=== PATIENT | male | born 1970 | race Caucasian/White ===

== ENCOUNTER 2021-02-24 17:10 | Emergency (ER) | payer BC ==
--- OUTSIDE RECORDS SUMMARY | 2021-02-24 17:21 | XMS REPORT | Continuity of Care Document ---
:1970 Author Organization [facility] t Address [address] Zhang [address] [place] [id number] Care Team Providers Name Role Phone JOON Primary Care Physician Unavailable SYSTEM, NOT IN Attending Clinician Unavailable Maribel Monzon Attending Clinician Puga RN, L Attending Clinician Unavailable Enma RAUSCH Attending Clinician Argelia PRODUCT MANAGENT INTERN, D Attending Clinician ARGELIA, D Attending Clinician Unavailable Joon DUARTE Attending Clinician JOON Attending Clinician Unavailable Carlitos DUARTE Attending Clinician Thony Clement MD Attending Clinician Love DUARTE Attending Clinician LOVE Attending Clinician Unavailable Marcell DUARTE Attending Clinician Lisa DUARTE Attending Clinician Milena Springer Attending Clinician THONY CLEMENT Attending Clinician Unavailable Nat DUARTE Attending Clinician DEREJE Attending Clinician Unavailable Dereje DUARTE Attending Clinician Leslie SUÁREZ Attending Clinician Unavailable Elroy DUARTE Attending Clinician Keshawn GARDNER Attending Clinician Unavailable Jj PRODUCT MANAGENT INTERN, B Attending Clinician ENMA TORO Attending Clinician Unavailable EL Attending Clinician Unavailable El WATKINS Attending Clinician Heriberto RINCON Attending Clinician Unavailable Sergey WATKINS, M Attending Clinician Maribel MAIER. Attending Clinician Unavailable Darrion PRODUCT MANAGENT INTERN, R. Attending Clinician VICKEY Attending Clinician Unavailable Samuel DUARTE Attending Clinician Vickey DUARTE Attending Clinician Jomar MCNEILL Attending Clinician Unavailable MANSOOR Attending Clinician Unavailable Mansoor DUARTE Attending Clinician Shamika DUARTE Attending Clinician SHAMIKA Attending Clinician Unavailable Janette REED, Uri Attending Clinician Unavailable Uri SAVAGE Attending Clinician Unavailable Leia REED, R Attending Clinician Unavailable Branden CERVANTES Attending Clinician Alie Pal RPH Attending Clinician Mio ERED, R Attending Clinician Unavailable Norberto REED Attending Clinician Unavailable Alfa DUARTE Attending Clinician Eriberto WATKINS, O Attending Clinician Joaquin FERGUSON Attending Clinician Unavailable Naeem LOVETT Attending Clinician Tay REED, O Attending Clinician Unavailable NAEEM Attending Clinician Unavailable Naomi DUARTE Attending Clinician NAOMI Attending Clinician Unavailable Ruth Rivera Attending Clinician Unavailable Viet REED, Uri Attending Clinician Unavailable Israel Tapia RN, S Attending Clinician Unavailable Soraya PRODUCT MANAGENT INTERN, E Attending Clinician Windy Perez RN Attending Clinician Unavailable Jb REED, P Attending Clinician Unavailable Kerrie REED Attending Clinician Unavailable Gael Friend RN Attending Clinician Unavailable David Orozco RN, D Attending Clinician Unavailable Isaias INSEAM LEVELER, R Attending Clinician Hank RAUSCH Attending Clinician HANK Attending Clinician Unavailable Ruth De La Torre MA Attending Clinician Unavailable Richy REED, W Attending Clinician Unavailable Dalusung PRODUCT MANAGENT INTERN Attending Clinician KAMRAN Attending Clinician Unavailable Oliverio RN Attending Clinician Mervin RN, B Attending Clinician Unavailable Wai RAUSCH Attending Clinician Argelia RN, T Attending Clinician Unavailable Howie CLINE, B Attending Clinician Rodney RN, R Attending Clinician Natacha RAUSCH Attending Clinician Jocelyne Rausch PRODUCT MANAGENT INTERN, M Attending Clinician NATACHA Attending Clinician Unavailable Erica SÁNCHEZ C Attending Clinician Julienne Myers MA Attending Clinician Unavailable Magno RN Attending Clinician Unavailable Sonja Kohler Attending Clinician JOON Admitting Clinician Unavailable Payers Payer Name Policy Type Policy Number Effective Date Expiration Date S lamont BLUE CROSS BLUE [id number] 2020 [place]:00 [id number] 10/2019-PresentPPO Problems Condition Condition Condition Status Onset Resolution Last Treating Co mments Source Name Details Category Date Date Treatment Clinician Date 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, syndrome, 00:00: 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 spectrum spectrum Lesion of Lesion of Disease Active conjunctiv conjunctiv 4-14 An derso a a 00:00: n 00 Exfoliatio Exfoliatio Disease Active M D n due to n due to 4-13 Shamar o erythemato erythemato 00:00: n us us 00 condition condition involving involving 30-39 30-39 percent of percent of body body surface surface Liver Liver Disease Active function function 4-12 Shamar o tests tests 00:00: n abnormal abnormal 00 Generalize Generalize Disease Active M D d rash d rash 4-12 Anderso 00:00: n 00 Fever Fever Disease Active 4-12 Anderso 00:00: n 00 Multiple Multiple Disease Active myeloma myeloma 2-10 Anderso 00:00: n 00 R/O Diagnosis Active 2018-102019-08-18 Mem oria MYELOMA 09:42:00 l R/O 00:00: Dangelo MYELOMA 00 Active 08/02/2019 [facility] Dangelo Fatty Fatty Disease Active liver liver 10-25 Anderso 00:00: n 00 Hypertensi Hypertensi Disease Active 2017-10 M D on on 11-25 Anderso 00:00: n 00 Hypokalemi Hypokalemi Disease Active M D a a Anderso n Hyponatrem Hyponatrem Disease Active M D ia ia Anderso n Edema Edema Disease Active MD Sukhjinder hadley Acute Acute Disease Active kidney kidney Anderso failure failure n with with tubular tubular necrosis necrosis Metabolic Metabolic Disease Active acidosis acidosis Shamar o n Allergies, Adverse Reactions, Alerts This patient has no known allergies or adverse reactions. Family History Family Member Diagnosis Comments Start Date Stop Date Source Natural father -Other cancer MD Sly mathis Natural father Coronary heart disease (CHD) MD [place] Natural father Hyperlipidemia Natural father Hypertension MD Villegas son Natural mother -Other cancer MD Sly mathis Social History Social Habit Start Date Stop Date Quantity Comments Source History of tobacco Snuff User use Sex Assigned At MD Ibanez on Exposure to Not sure MD [place]on SARS-CoV-2 (event) Tobacco use and 2021-02-04 2021-02-04 Current user MD Sly mathis exposure 00:00:00 00:00:00 Alcohol intake 2021-02-04 2021-02-04 Current drinker MD Fern vivas 00:00:00 00:00:00 of alcohol (finding) Smoking Status Start Date Stop Date Source Never smoker MD [place] Medications Ordered Filled Start Stop Current Ordering Indication Dosage Frequency Signature Comments Components Source Medication Medication Date Date Medication? Clinician (SIG) Name Name ursodiol Yes Multiple 300mg Take 1 (ACTIGALL) 5-03 myeloma capsule And erso 300 mg 00:00: (300 mg) n capsule 00 by mouth twice daily. mupirocin Yes Carmelita Apply (BACTROBAN) 4-30 nson topically And erso 2% ointment 00:00: syndrome, to n 00 toxic affected epidermal area(s) necrolysis twice spectrum daily. Apply to any areas that are open. Apply to orifices, ears, nose, mouth. For external use only. oxyCODONE Yes Carmelita 10mg Take 1 MD (ROXICODONE 02-20 nson tablet (10 An derso ) 10 mg 00:00: syndrome mg) by n immediate 00 mouth release every 8 tablet (eight) hours as needed for severe pain. triamcinolo Yes Carmelita Apply MD berman 02-19 nson topically Anderso (KENALOG) 00:00: syndrome, to n 0.1% cream 00 toxic affected epidermal area(s) necrolysis twice spectrum daily. Apply to affected area(s): trunk and extremitie s Do NOT use on face For external use only. pantoprazol Yes Acute 40mg Take 1 MD e 02-19 kidney tablet (40 Anderso (PROTONIX) 00:00: failure mg) by n 40 mg EC 00 with mouth tablet tubular daily with necrosis breakfast. mupirocin 2020- No Carmelita Apply (BACTROBAN) 02-1930 nson topically An derso 2% ointment 00:00: 00:00 syndrome, to n 00 :00 toxic affected epidermal area(s) necrolysis twice spectrum daily. Apply to any areas that are open. Apply to orifices, ears, nose, mouth For external use only. mupirocin 2020- No Carmelita Apply (BACTROBAN) 02-18 nson topically An derso 2% ointment 00:00: 00:00 syndrome, to n 00 :00 toxic affected epidermal area(s) necrolysis twice spectrum daily. Apply to any areas that are open. Apply to orifices, ears, nose, mouth For external use only. triamcinolo 2020- No Carmelita Apply MD berman 02-18 nson topically Anderso (KENALOG) 00:00: 00:00 syndrome, to n 0.1% cream 00 :00 toxic affected epidermal area(s) necrolysis twice spectrum daily. Apply to affected area(s): trunk and extremitie sDo NOT use on face For external use only. gabapentin 2021-0 Yes 300mg Take 300 MD (NEURONTIN) 4-21 mg by Anderso 300 mg 14:17: mouth n capsule 37 twice daily. diphenhydrA Yes 50mg Take 50 mg MD MINE 4-21 by mouth 3 Anderso (BENADRYL) 14:17: (three) n 25 mg 37 times a tablet day as needed for allergies. fluconazole Yes Carmelita 400mg Take 2 MD (DIFLUCAN) 4-20 nson tablets Shamar o 200 mg 00:00: syndrome, (400 mg) n tablet 00 toxic by mouth epidermal daily. To necrolysis prevent spectrum fungal infections while on steroids. atovaquone Yes Carmelita 1500mg Take 10 mL MD (MEPRON) 4-19 nson (1,500 mg) Bakari so 750 mg/5 mL 00:00: syndrome, by mouth n suspension 00 toxic daily with epidermal dinner. necrolysis To prevent spectrum PJP pneumonia. hydrocortis Yes Carmelita Apply MD one 2.5% 4-19 nson topically Shamar o cream 00:00: syndrome, to n 00 toxic affected epidermal area(s) necrolysis twice spectrum daily. Apply to affected area(s): face; inguinal folds and groin. For external use only. hydroxyzine Yes Carmelita 25mg Take 1 MD HCl 4-19 nson tablet (25 Anderso (ATARAX) 25 00:00: syndrome, mg) by n mg tablet 00 toxic mouth epidermal every 6 necrolysis (six) spectrum hours as needed for itching, allergies or anxiety. ondansetron Yes Carmelita 8mg Dissolve 1 MD (ZOFRAN-ODT 4-19 nson tablet (8 And erso ) 8 mg 00:00: syndrome, mg) on the n disintegrat 00 toxic tongue ing tablet epidermal every 8 necrolysis (eight) spectrum hours as needed for nausea or vomiting. polyethylen Yes Carmelita 17g Take 17 g MD e glycol 4-19 nson by mouth Anderso (MIRALAX) 00:00: syndrome, daily as n 17 g packet 00 toxic needed epidermal (constipat necrolysis ion). spectrum Available over the counter. prednisoLON Yes Carmelita 1[drp] Administer E acetate - nson 1 drop to Bakari so (PRED 00:00: syndrome, both eyes n FORTE) 1% 00 toxic 4 (four) ophthalmic epidermal times a suspension necrolysis day. spectrum moxifloxaci Yes Carmelita 1[drp] Administer MD hadley (VIGAMOX) - nson 1 drop to And erso 0.5 % 00:00: syndrome, both eyes n ophthalmic 00 toxic 4 (four) solution epidermal times a necrolysis day. spectrum morphine Yes Carmelita 30mg Take 1 MD (MS CONTIN) 02-10 nson tablet (30 An derso 30 mg 12 hr 00:00: syndrome mg) by n tablet 00 mouth every 12 (twelve) hours. predniSONE 2020- Yes Carmelita Take 2 MD (DELTASONE) 02-10 05-25 nson tablets Sly rso 20 mg 00:00: 04:59 syndrome, (40 mg) by n tablet 00 :00 toxic mouth epidermal twice necrolysis daily for spectrum 7 days, THEN 3 tablets (60 mg) daily for 7 days, THEN 2 tablets (40 mg) daily for 7 days, THEN 1 tablet (20 mg) daily for 7 days, THEN 0.5 tablets (10 mg) daily for 7 days. oxyCODONE 2020- No Carmelita 10mg Take 1 MD (ROXICODONE 02-10 nson tablet (10 A nderso ) 10 mg 00:00: 00:00 syndrome mg) by n immediate 00 :00 mouth release every 4 tablet (four) hours as needed for severe pain. mupirocin 2020- No Carmelita Apply (BACTROBAN) 02-10 nson topically An derso 2% ointment 00:00: 00:00 syndrome, to n 00 :00 toxic affected epidermal area(s) necrolysis twice spectrum daily. Apply to any areas that are open. Apply to orifices, ears, nose, mouth For external use only. triamcinolo 2020- No Carmelita Apply MD berman 02-10 nson topically Anderso (KENALOG) 00:00: 00:00 syndrome, to n 0.1% cream 00 :00 toxic affected epidermal area(s) necrolysis twice spectrum daily. Apply to affected area(s): trunk and extremitie sDo NOT use on face For external use only. magnesium 2020- No Status post 500mg Take 1 MD oxide 500 01-27 stem cell tablet An derso mg tablet 00:00: 00:00 transplant (500 mg) n 00 :00 by mouth daily. sulfamethox 2020- No Multiple 1{tbl} Take 1 MD azole-trime 01-24 myeloma tablet by Anderso thoprim 00:00: 00:00 mouth 3 n (BACTRIM 00 :00 (three) DS) 800 times a mg-160 mg week per tablet Wednesday, Wednesday and Wednesday. valACYclovi Yes Multiple 500mg Take 1 MD r (VALTREX) 01-23 myeloma tablet And erso 500 mg 00:00: (500 mg) n tablet 00 by mouth daily. ondansetron 2020- No 1{tbl} Dissolve 1 MD (ZOFRAN-ODT 30 02-10 tablet on An derso ) 4 mg 00:00: 00:00 the tongue n disintegrat 00 :00 every 6 ing tablet (six) hours as needed. magnesium 2020- No Status post 500mg Take 1 MD oxide 500 01-17 stem cell tablet An derso mg tablet 00:00: 00:00 transplant (500 mg) n 00 :00 by mouth daily. pantoprazol 2020- No Acute 40mg Take 1 MD e 01-16 kidney tablet (40 Shamar o (PROTONIX) 00:00: 00:00 failure mg) by n 40 mg EC 00 :00 with mouth tablet tubular daily with necrosis breakfast. doxycycline 2020- No Hypokalemia 100mg Take 1 MD (Vibramycin 01-16 capsule Sly rso ) 100 MG 00:00: 00:00 (100 mg) n capsule 00 :00 by mouth twice daily. levoFLOXaci 2020- No Hypokalemia 750mg Take 1 MD n -16 02- tablet Anderso (LEVAQUIN) 00:00: 00:00 (750 mg) n 750 mg 00 :00 by mouth tablet daily. furosemide 2020- No Hypokalemia 20mg Take 1 MD (Lasix) 20 -16 02- tablet (20 An derso mg tablet 00:00: 00:00 mg) by n 00 :00 mouth twice daily. potassium 2020- No Hypokalemia 20meq Take 1 MD chloride 01-16- tablet (20 Sly rso (K-DUR,KLOR 00:00: 00:00 mEq) by n -CON M) 20 00 :00 mouth mEq tablet twice daily. While on lasix. loperamide Yes Acute Take 1 MD (IMODIUM) 2 3-23 kidney tablet by A nderso mg capsule 00:00: failure mouth n 00 with after each tubular loose necrosis stool as needed. nystatin 2020- No Acute Apply MD (MYCOSTATIN 01-14-05 kidney topically Anderso ) 100,000 00:00: 00:00 failure to n units/g 00 :00 with affected powder tubular area(s) necrosis twice daily. prochlorper 2020- No Acute 10mg Take 1 MD azine 01-14-05 kidney tablet (10 Bakari so (COMPAZINE) 00:00: 00:00 failure mg) by n 10 mg 00 :00 with mouth tablet tubular every 8 necrosis (eight) hours as needed for nausea or vomiting. pantoprazol 2020- No Acute 40mg Take 1 MD e 01-14-25 kidney tablet (40 Shamar o (PROTONIX) 00:00: 00:00 failure mg) by n 40 mg EC 00 :00 with mouth tablet tubular daily with necrosis breakfast. loperamide 2020- No Acute As needed MD (IMODIUM) 2 -14 01-23 kidney for loose Anderso mg capsule 00:00: 00:00 failure stools n 00 :00 with tubular necrosis prochlorper 2020- No Acute 10mg Take 1 MD azine 3-23 -23 kidney tablet (10 Bakari so (COMPAZINE) 00:00: 00:00 failure mg) by n 10 mg 00 :00 with mouth tablet tubular every 8 necrosis (eight) hours. ursodiol Multiple 300mg Take 1 M D (ACTIGALL) 12-18 myeloma capsule An derso 300 mg 00:00: 00:00 (300 mg) n capsule 00 :00 by mouth twice daily. levETIRAcet 2020- No Multiple Please MD am (KEPPRA) 12-18 myeloma follow An derso 500 mg 00:00: 00:00 instructio n tablet 00 :00 ns on handout given in clinic on 12/18/2020 heparin, 2020- No Multiple Inject 2 MD PF, 100 2-13 -24 myeloma ml (200 Bakari so units/mL 00:00: 00:00 units) n injection 00 :00 into each lumen of central venous catheter daily as directed. Discard excess volume to administer 2 mL. heparin, 2020- No Multiple Inject 2 MD PF, 100 2-13 -13 myeloma ml (200 Bakari so units/mL 00:00: 00:00 units) n injection 00 :00 into each lumen of central venous catheter daily as directed. Discard excess volume to administer 2 mL. sodium 2020- No Multiple Inject 10 M D chloride 2-12 03-25 myeloma mL (1 Shamar o (NS) 0.9% 00:00: 00:00 syringe) n flush 00 :00 into each syringe 10 lumen of mL central venous catheter daily as directed. sodium 2020- No Multiple Inject 10 M D chloride 2-12 02-12 myeloma mL (1 Shamar o (NS) 0.9% 00:00: 00:00 syringe) n flush 00 :00 into each syringe 10 lumen of mL central venous catheter daily as directed. gabapentin 2020- No 300mg Take 300 M D (NEURONTIN) 2-10 02-10 mg by Shamar o 100 mg 17:52: 00:00 mouth n capsule 33 :00 twice daily. doxycycline 2019-10 100mg Take 100 MD monohydrate 2-21 02-24 mg by Shamar o (MONODOX) 00:00: 00:00 mouth n 100 MG 00 :00 twice capsule daily. hydroCHLORO 2019-10 25mg Take 25 mg MD thiazide 2-18 03-25 by mouth Shamar o (HYDRODIURI 00:00: 00:00 daily. n L) 25 mg 00 :00 tablet valACYclovi 2019-10 500mg Take 500 MD r (VALTREX) 008 04-01 mg by Shamar o 500 mg 00:00: 00:00 mouth n tablet 00 :00 daily. amLODIPine 5mg Take 5 mg M D (NORVASC) 5 12-09 by mouth And erso mg tablet 00:00: 00:00 twice n 00 :00 daily. olmesartan 40mg Take 40 mg MD (BENICAR) 12-09 by mouth Bakari so 40 mg 00:00: 00:00 daily. n tablet 00 :00 Losartan 2018-10 Yes See Memoria Instructio l 13:00: ns, PO Dangelo 00 Daily 40 mg, 0 Refill(s) Immunizations Ordered Immunization Filled Immunization Date Status Commen ts Source Name Name Zoster Recombinant 2020-10-01 Completed MD And erson 00:00:00 Vital Signs Vital Name Observation Time Observation Value Comments Source WEIGHT 2021-02-12 09:05:00 105.9 kg WEIGHT 2021-02-12 09:05:00 105.9 kg WEIGHT 2021-02-10 07:47:43 106.1 kg HEIGHT 2021-02-05 18:43:00 183 cm WEIGHT 2021-02-10 07:47:43 106.1 kg HEIGHT 2021-02-05 18:43:00 183 cm WEIGHT 2021-01-27 08:34:00 105.4 kg WEIGHT 2021-01-27 08:34:00 105.4 kg WEIGHT 2021-01-23 10:08:00 106.2 kg WEIGHT 2021-01-23 10:08:00 106.2 kg WEIGHT 2021-01-20 08:19:00 110.5 kg WEIGHT 2021-01-20 08:19:00 110.5 kg WEIGHT 2021-01-17 08:55:00 116.9 kg WEIGHT 2021-01-17 08:55:00 116.9 kg WEIGHT 2021-01-16 08:27:30 116.6 kg HEIGHT 2020-12-23 13:49:00 179.5 cm WEIGHT 2021-01-16 08:27:30 116.6 kg HEIGHT 2020-12-23 13:49:00 179.5 cm WEIGHT 2020-12-19 07:14:14 114 kg WEIGHT 2020-12-19 07:14:14 114 kg WEIGHT 2020-12-17 07:33:00 113.1 kg WEIGHT 2020-12-17 07:33:00 113.1 kg WEIGHT 2020-12-16 19:39:21 113.4 kg WEIGHT 2020-12-16 19:39:21 113.4 kg WEIGHT 2020-12-16 07:51:14 113.9 kg WEIGHT 2020-12-16 07:51:14 113.9 kg WEIGHT 2020-12-15 19:03:49 113.7 kg WEIGHT 2020-12-15 19:03:49 113.7 kg WEIGHT 2020-12-14 11:01:19 117.4 kg WEIGHT 2020-12-14 11:01:19 117.4 kg WEIGHT 2020-12-13 11:10:40 116.1 kg WEIGHT 2020-12-13 11:10:40 116.1 kg WEIGHT 2020-12-12 11:04:59 116.3 kg WEIGHT 2020-12-12 11:04:59 116.3 kg WEIGHT 2020-11-13 09:23:00 115 kg WEIGHT 2020-11-13 09:23:00 115 kg HEIGHT 2020-10-24 10:07:00 180 cm WEIGHT 2020-10-24 10:07:00 113.2 kg HEIGHT 2020-10-24 10:07:00 180 cm WEIGHT 2020-10-24 10:07:00 113.2 kg Systolic blood 2021-02-12 14:07:46 133 mm[Hg] pressure Diastolic blood 2021-02-12 14:07:46 81 mm[Hg] MD Fern vivas pressure Heart rate 2021-02-12 14:07:46 90 /min MD Villegas son Body temperature 2021-02-12 14:07:46 36.61 Mattie MD Bradley gonzalez Respiratory rate 2021-02-12 14:07:46 18 /min MD Bradley gonzalez Oxygen saturation in 2021-02-12 14:07:46 100 /min MD [place] Arterial blood by Pulse oximetry Body weight 2021-02-12 14:05:00 105.9 kg MD Bakari akbar BMI 2021-02-12 14:05:00 31.62 kg/m2 MD Bakari akbar Body height 2021-02-05 23:43:00 183 cm MD Bakari akbar Height 2019-08-18 15:00:00 182.88 cm [facility] Weight 2019-08-18 15:00:00 [facility] BMI Calculated 2019-08-18 15:00:00 [facility] Dangelo Procedures Procedure Date / Time Performed Performing Clinician [facility] e COMPLETE BLOOD COUNT W/ 2021-02-12 13:55:00 Stout, Renata Huerta nderson DIFFERENTIAL PROTHROMBIN TIME 2021-02-12 13:55:00 Stout, Renata [place] PARTIAL THROMBOPLASTIN TIME 2021-02-12 13:55:00 StoutRenata MD TYPE AND SCREEN 2021-02-12 13:55:00 StoutRenata MD COMPREHENSIVE METABOLIC PANEL 2021-02-12 13:55:00 StoutRenata MD PHOSPHORUS LEVEL 2021-02-12 13:55:00 StoutRenata MD URIC ACID 2021-02-12 13:55:00 StoutRenata MD LACTATE DEHYDROGENASE 2021-02-12 13:55:00 Stout[facility] MAGNESIUM LEVEL 2021-02-12 13:55:00 StoutRenata del valle MD Results CBC 2021-02-12 13:55:00 StoutRenata del valle MD MANUAL DIFFERENTIAL 2021-02-12 13:55:00 StoutRenata del valle MD GLUCOSE LEVEL 2021-02-12 13:55:00 StoutRenata MD BLOOD UREA NITROGEN 2021-02-12 13:55:00 StoutRenata del valle MD ELECTROLYTE PANEL 2021-02-12 13:55:00 StoutRenata del valle MD SERUM CREATININE 2021-02-12 13:55:00 StoutRenata MD .GLOMERULAR FILTRATION RATE 2021-02-12 13:55:00 StoutRenata del valle MD CALCIUM LEVEL TOTAL 2021-02-12 13:55:00 Stout, Renata Abbott MD [facility] ALBUMIN LEVEL 2021-02-12 13:55:00 Stout, Renata [place] ALKALINE PHOSPHATASE 2021-02-12 13:55:00 Stout, Renata Abbott MD Slyuri mathis ALANINE AMINOTRANSFERASE 2021-02-12 13:55:00 Stout, Renata [place] ASPARTATE AMINOTRANSFERASE 2021-02-12 13:55:00 Stout, Renata [place] TOTAL PROTEIN 2021-02-12 13:55:00 Stout, Renata [place] FRACTIONATED BILIRUBIN 2021-02-12 13:55:00 Stout, Renata Santos derson ABORH 2021-02-12 13:55:00 Stout, Renata [place] CLOT EXPIRATION DATE 2021-02-12 13:55:00 Stout, Renata [facility] rstheodore ANTIBODY SCREEN MANUAL 2021-02-12 13:55:00 Stout, Renata vivas COMPLETE BLOOD COUNT W/ 2021-02-10 12:23:00 Rao Clement MD DIFFERENTIAL BASIC METABOLIC PANEL, 2021-02-10 12:23:00 Rao Clement MD CALCIUM IONIZED MAGNESIUM LEVEL 2021-02-10 12:23:00 Rao Clement MD Sly rstheodore PHOSPHORUS LEVEL 2021-02-10 12:23:00 Rao Clement MD And opal HEPATIC FUNCTION PANEL 2021-02-10 12:23:00 Rao Clement MD PROTHROMBIN TIME 2021-02-10 12:23:00 Rao Clement MD And opal PARTIAL THROMBOPLASTIN TIME 2021-02-10 12:23:00 Rao Clement MD Results CBC 2021-02-10 12:23:00 Rao Clement MD Sly rstheodore MANUAL DIFFERENTIAL 2021-02-10 12:23:00 Rao Clement MD GLUCOSE LEVEL 2021-02-10 12:23:00 Rao Clement MD Slyuri mathis BLOOD UREA NITROGEN 2021-02-10 12:23:00 Rao Clement MD ELECTROLYTE PANEL 2021-02-10 12:23:00 Rao Clement MD SERUM CREATININE 2021-02-10 12:23:00 Rao Clement MD And erson .GLOMERULAR FILTRATION RATE 2021-02-10 12:23:00 Rao Clement MD ALBUMIN LEVEL 2021-02-10 12:23:00 Rao Clement MD Sly rstheodore ALKALINE PHOSPHATASE 2021-02-10 12:23:00 Rao Clement MD ALANINE AMINOTRANSFERASE 2021-02-10 12:23:00 Rao Clement MD ASPARTATE AMINOTRANSFERASE 2021-02-10 12:23:00 Rao Clement MD TOTAL PROTEIN 2021-02-10 12:23:00 Rao Clement MD Sly rstheodore FRACTIONATED BILIRUBIN 2021-02-10 12:23:00 Rao Clement MD CALCIUM IONIZED, VENOUS 2021-02-10 12:23:00 Rao Clement MD COVID-19 (SARS-COV-2) 2021-02-09 20:58:00 Rao Clement PCR-ASYMPTOMATIC [facility] TYPE AND SCREEN 2021-02-09 11:42:00 Rao Clement MD Sly rstheodore ABORH 2021-02-09 11:42:00 Rao Clement MD Sly rstheodore COMPLETE BLOOD COUNT W/ 2021-02-09 11:42:00 Rao Clement MD DIFFERENTIAL BASIC METABOLIC PANEL, 2021-02-09 11:42:00 Rao Clement MD CALCIUM IONIZED MAGNESIUM LEVEL 2021-02-09 11:42:00 Rao Clement MD Sly rson PHOSPHORUS LEVEL 2021-02-09 11:42:00 Rao Clement MD And erson HEPATIC FUNCTION PANEL 2021-02-09 11:42:00 Rao Clement MD PROTHROMBIN TIME 2021-02-09 11:42:00 Rao Clement MD And erson PARTIAL THROMBOPLASTIN TIME 2021-02-09 11:42:00 Rao Clement MD Results CBC 2021-02-09 11:42:00 Rao Clement MD Sly rson MANUAL DIFFERENTIAL 2021-02-09 11:42:00 Rao Clement MD GLUCOSE LEVEL 2021-02-09 11:42:00 Rao Clement MD Sly rson BLOOD UREA NITROGEN 2021-02-09 11:42:00 Rao Clement MD ELECTROLYTE PANEL 2021-02-09 11:42:00 Rao Clement MD An derson SERUM CREATININE 2021-02-09 11:42:00 Rao Clement MD And erson .GLOMERULAR FILTRATION RATE 2021-02-09 11:42:00 Roa Clement MD ALBUMIN LEVEL 2021-02-09 11:42:00 Rao Clement MD Sly rson ALKALINE PHOSPHATASE 2021-02-09 11:42:00 Rao Clement MD ALANINE AMINOTRANSFERASE 2021-02-09 11:42:00 Rao Clement MD ASPARTATE AMINOTRANSFERASE 2021-02-09 11:42:00 RamRao turk MD TOTAL PROTEIN 2021-02-09 11:42:00 Rao Clement MD Sly rstheodore FRACTIONATED BILIRUBIN 2021-02-09 11:42:00 Rao Clement MD CALCIUM IONIZED, VENOUS 2021-02-09 11:42:00 Rao Clement MD CLOT EXPIRATION DATE 2021-02-09 11:42:00 Rao Clement MD ANTIBODY SCREEN MANUAL 2021-02-09 11:42:00 Rao Clement MD COMPLETE BLOOD COUNT W/ 2021-02-08 16:42:00 Rao Clement MD DIFFERENTIAL BASIC METABOLIC PANEL, 2021-02-08 16:42:00 Rao Clement MD CALCIUM IONIZED MAGNESIUM LEVEL 2021-02-08 16:42:00 Rao Clement MD Sly rson PHOSPHORUS LEVEL 2021-02-08 16:42:00 Rao Clement MD And erson HEPATIC FUNCTION PANEL 2021-02-08 16:42:00 Rao Clement MD PROTHROMBIN TIME 2021-02-08 16:42:00 Rao Clement MD And erson PARTIAL THROMBOPLASTIN TIME 2021-02-08 16:42:00 Rao Clement MD LACTIC ACID, VENOUS 2021-02-08 16:42:00 Rao Clement MD Results CBC 2021-02-08 16:42:00 Rao Clement MD Sly rstheodore MANUAL DIFFERENTIAL 2021-02-08 16:42:00 Rao Clement MD GLUCOSE LEVEL 2021-02-08 16:42:00 Rao Clement MD Sly rstheodore BLOOD UREA NITROGEN 2021-02-08 16:42:00 Rao Clement MD ELECTROLYTE PANEL 2021-02-08 16:42:00 Rao Clement MD derson SERUM CREATININE 2021-02-08 16:42:00 Rao Clement MD And erson .GLOMERULAR FILTRATION RATE 2021-02-08 16:42:00 Rao Clement MD ALBUMIN LEVEL 2021-02-08 16:42:00 Rao Clement MD Sly rstheodore ALKALINE PHOSPHATASE 2021-02-08 16:42:00 Rao Clement MD ALANINE AMINOTRANSFERASE 2021-02-08 16:42:00 Rao Clement MD ASPARTATE AMINOTRANSFERASE 2021-02-08 16:42:00 Rao Clement MD TOTAL PROTEIN 2021-02-08 16:42:00 RamRao turk MD Sly rstheodore FRACTIONATED BILIRUBIN 2021-02-08 16:42:00 Rao Clement MD CALCIUM IONIZED, VENOUS 2021-02-08 16:42:00 Rao Clement MD COMPLETE BLOOD COUNT W/ 2021-02-07 05:35:00 RamRao turk MD DIFFERENTIAL BASIC METABOLIC PANEL, 2021-02-07 05:35:00 Rao Clement MD CALCIUM IONIZED MAGNESIUM LEVEL 2021-02-07 05:35:00 RamRao turk MD rson PHOSPHORUS LEVEL 2021-02-07 05:35:00 Rao Clement MD And erson HEPATIC FUNCTION PANEL 2021-02-07 05:35:00 Rao Clement MD PROTHROMBIN TIME 2021-02-07 05:35:00 Rao Clement MD And erson PARTIAL THROMBOPLASTIN TIME 2021-02-07 05:35:00 Rao Clement MD LACTIC ACID, VENOUS 2021-02-07 05:35:00 Rao Clement MD Results CBC 2021-02-07 05:35:00 RamRao turk MD Sly rstheodore MANUAL DIFFERENTIAL 2021-02-07 05:35:00 RamRao turk MD GLUCOSE LEVEL 2021-02-07 05:35:00 RamRao turk MD Sly rstheodore BLOOD UREA NITROGEN 2021-02-07 05:35:00 Rao Clement MD ELECTROLYTE PANEL 2021-02-07 05:35:00 RamRao turk MDson SERUM CREATININE 2021-02-07 05:35:00 Rao Clement MD And erson .GLOMERULAR FILTRATION RATE 2021-02-07 05:35:00 RamRao turk MD ALBUMIN LEVEL 2021-02-07 05:35:00 RamRao turk MD Sly rstheodore ALKALINE PHOSPHATASE 2021-02-07 05:35:00 Rao Clement MD ALANINE AMINOTRANSFERASE 2021-02-07 05:35:00 RamRao turk MD ASPARTATE AMINOTRANSFERASE 2021-02-07 05:35:00 Rao Clement MD TOTAL PROTEIN 2021-02-07 05:35:00 RamRao turk MD Slyuri mathis FRACTIONATED BILIRUBIN 2021-02-07 05:35:00 Rao Clement MD CALCIUM IONIZED, VENOUS 2021-02-07 05:35:00 Rao Clement MD COMPLETE BLOOD COUNT W/ 2021-02-06 18:25:00 Stout, Renata gonzalez DIFFERENTIAL COMPREHENSIVE METABOLIC PANEL 2021-02-06 18:25:00 Stout, Renata Easton PHOSPHORUS LEVEL 2021-02-06 18:25:00 Stout, Renata Easton MAGNESIUM LEVEL 2021-02-06 18:25:00 Stout, Renata Easton PROTHROMBIN TIME 2021-02-06 18:25:00 Stout, Renata Easton PARTIAL THROMBOPLASTIN TIME 2021-02-06 18:25:00 Stout, Renata Easton Results CBC 2021-02-06 18:25:00 Stout, Renata Easton MANUAL DIFFERENTIAL 2021-02-06 18:25:00 Stout, Renata akbar GLUCOSE LEVEL 2021-02-06 18:25:00 Stout, Renata Easton BLOOD UREA NITROGEN 2021-02-06 18:25:00 Stout, Renata akbar ELECTROLYTE PANEL 2021-02-06 18:25:00 Stout, Renata hadley SERUM CREATININE 2021-02-06 18:25:00 Stout, Renata Easton .GLOMERULAR FILTRATION RATE 2021-02-06 18:25:00 Stout, Renata Easton CALCIUM LEVEL TOTAL 2021-02-06 18:25:00 Stout, Renata Calzadaer naomie ALBUMIN LEVEL 2021-02-06 18:25:00 Stout, Renata Easton ALKALINE PHOSPHATASE 2021-02-06 18:25:00 Stout, Renata mathis ALANINE AMINOTRANSFERASE 2021-02-06 18:25:00 Stout, Renata Easton ASPARTATE AMINOTRANSFERASE 2021-02-06 18:25:00 Stout, Renata Easton TOTAL PROTEIN 2021-02-06 18:25:00 Stout, Renata Easton FRACTIONATED BILIRUBIN 2021-02-06 18:25:00 Stout, Renata vivas POC GLUCOSE SCREEN 2021-02-05 22:33:00 Rao Clement MD TYPE AND SCREEN 2021-02-05 20:08:00 Rao Clement MD rson ABORH 2021-02-05 20:08:00 Briseyda Mg MD [facility] CLOT EXPIRATION DATE 2021-02-05 20:08:00 Briseyda Mg MD ANTIBODY SCREEN MANUAL 2021-02-05 20:08:00 Briseyda Mg POC GLUCOSE SCREEN 2021-02-05 16:40:00 Bashir Dupree MD on POC GLUCOSE SCREEN 2021-02-05 10:24:00 Bashir Dupree MD on ALANINE AMINOTRANSFERASE 2021-02-05 06:27:00 Briseyda Mg MD ASPARTATE AMINOTRANSFERASE 2021-02-05 06:27:00 Briseyda Mg MD TOTAL PROTEIN 2021-02-05 06:27:00 Brsieyda Mg MD FRACTIONATED BILIRUBIN 2021-02-05 06:27:00 Briseyda Mg CALCIUM IONIZED, VENOUS 2021-02-05 06:27:00 Briseyda Mg MD COMPLETE BLOOD COUNT W/ 2021-02-05 06:27:00 Rao Clement MD DIFFERENTIAL BASIC METABOLIC PANEL, 2021-02-05 06:27:00 Rao Clement MD CALCIUM IONIZED MAGNESIUM LEVEL 2021-02-05 06:27:00 Rao Clement MD Sly rson PHOSPHORUS LEVEL 2021-02-05 06:27:00 Rao Clement MD And erson HEPATIC FUNCTION PANEL 2021-02-05 06:27:00 Rao Clement MD PROTHROMBIN TIME 2021-02-05 06:27:00 Rao Clement MD And erson PARTIAL THROMBOPLASTIN TIME 2021-02-05 06:27:00 Rao Clement MD LACTIC ACID, VENOUS 2021-02-05 06:27:00 Rao Clement MD Results CBC 2021-02-05 06:27:00 Briseyda Mg MD MANUAL DIFFERENTIAL 2021-02-05 06:27:00 Briseyda Mg MD nderson GLUCOSE LEVEL 2021-02-05 06:27:00 Briseyda Mg MD BLOOD UREA NITROGEN 2021-02-05 06:27:00 Briseyda Mg MD nderson ELECTROLYTE PANEL 2021-02-05 06:27:00 Briseyda Mg MD And erson SERUM CREATININE 2021-02-05 06:27:00 Briseyda Mg MD Sly rson .GLOMERULAR FILTRATION RATE 2021-02-05 06:27:00 Briseyda Mg MD ALBUMIN LEVEL 2021-02-05 06:27:00 Briseyda Mg MD Bakari son ALKALINE PHOSPHATASE 2021-02-05 06:27:00 Briseyda Mg MD POC GLUCOSE SCREEN 2021-02-05 04:12:00 Bashir Dupree MD on POC GLUCOSE SCREEN 2021-02-04 22:29:00 Bashir Dupree MD on POC GLUCOSE SCREEN 2021-02-04 16:55:00 Bashir Dupree MD on POC GLUCOSE SCREEN 2021-02-04 13:24:00 Bashir Dupree MD on TRANSFUSE FRESH FROZEN PLASMA 2021-02-04 12:33:37 Renata Stout MD TRANSFUSE FRESH FROZEN PLASMA 2021-02-04 11:13:20 Renata Stout MD POC GLUCOSE SCREEN 2021-02-04 11:03:00 Bashir Dupree MD on TRANSFUSE FRESH FROZEN PLASMA 2021-02-04 08:18:10 Renata Stout MD COMPLETE BLOOD COUNT W/ 2021-02-04 05:59:00 Rao Clement MD DIFFERENTIAL BASIC METABOLIC PANEL, 2021-02-04 05:59:00 Rao Clement MD CALCIUM IONIZED MAGNESIUM LEVEL 2021-02-04 05:59:00 Rao Clement MD Sly rson PHOSPHORUS LEVEL 2021-02-04 05:59:00 Rao Clement MD And erson HEPATIC FUNCTION PANEL 2021-02-04 05:59:00 Rao Clement MD PROTHROMBIN TIME 2021-02-04 05:59:00 Rao Clement MD And erson PARTIAL THROMBOPLASTIN TIME 2021-02-04 05:59:00 Rao Clement MD LACTIC ACID, VENOUS 2021-02-04 05:59:00 Rao Clement MD Results CBC 2021-02-04 05:59:00 [facility] 2021-02-04 05:59:00 [facility] 2021-02-04 05:59:00 Briseyda Mg MD [facility] BLOOD UREA NITROGEN 2021-02-04 05:59:00 Briseyda Mg MD [facility] ELECTROLYTE PANEL 2021-02-04 05:59:00 Briseyda Mg MD [facility] SERUM CREATININE 2021-02-04 05:59:00 Briseyda Mg MD Sly rs .GLOMERULAR FILTRATION RATE 2021-02-04 05:59:00 Briseyda Mg MD ALBUMIN LEVEL 2021-02-04 05:59:00 Briseyda Mg MD [facility] ALKALINE PHOSPHATASE 2021-02-04 05:59:00 Briseyda Mg MD ALANINE AMINOTRANSFERASE 2021-02-04 05:59:00 Briseyda Mg MD ASPARTATE AMINOTRANSFERASE 2021-02-04 05:59:00 Briseyda Mg MD TOTAL PROTEIN 2021-02-04 05:59:00 Briseyda Mg MD [facility] FRACTIONATED BILIRUBIN 2021-02-04 05:59:00 Briseyda Mg CALCIUM IONIZED, VENOUS 2021-02-04 05:59:00 Briseyda Mg MD TRANSFUSE FRESH FROZEN PLASMA 2021-02-04 05:42:37 Renata Stout MD POC GLUCOSE SCREEN 2021-02-04 04:55:00 Bashir Dupree MD on BASIC METABOLIC PANEL, 2021-02-04 01:33:00 Douglas Verduzco MD CALCIUM IONIZED PHOSPHORUS LEVEL 2021-02-04 01:33:00 Douglas Verduzco MD [facility] MAGNESIUM LEVEL 2021-02-04 01:33:00 Douglas Verduzco MD on GLUCOSE LEVEL 2021-02-04 01:33:00 Douglas Verduzco MD on BLOOD UREA NITROGEN 2021-02-04 01:33:00 Douglas Verduzco MD ELECTROLYTE PANEL 2021-02-04 01:33:00 Douglas Verduzco MD Sly rson SERUM CREATININE 2021-02-04 01:33:00 Douglas Verduzco MD Bakari son .GLOMERULAR FILTRATION RATE 2021-02-04 01:33:00 Ruthie Verduzco MD CALCIUM IONIZED, VENOUS 2021-02-04 01:33:00 Douglas Verduzco TRANSFUSE FRESH FROZEN PLASMA 2021-02-04 00:49:19 Renata Stout MD POC GLUCOSE SCREEN 2021-02-03 22:12:00 Bashir Dupree MD on TRANSFUSE FRESH FROZEN PLASMA 2021-02-03 21:05:52 Renata Stout MD OSMOLALITY URINE 2021-02-03 20:31:00 Niko Brown MD SODIUM URINE 2021-02-03 20:31:00 Niko Brown MD LEGIONELLA URINE ANTIGEN 2021-02-03 20:31:00 Niko Brown MD LEGIONELLA URINE ANTIGEN PATH 2021-02-03 20:31:00 Kodak Brown MD REVIEW STREPTOCOCCAL URINE ANTIGEN 2021-02-03 20:31:00 Niko Brown MD PATH REVIEW LACTIC ACID, VENOUS 2021-02-03 18:54:00 Douglas Verduzco MD BASIC METABOLIC PANEL, 2021-02-03 18:54:00 Douglas Verduzco MD CALCIUM IONIZED MAGNESIUM LEVEL 2021-02-03 18:54:00 Douglas Verduzco MD on PHOSPHORUS LEVEL 2021-02-03 18:54:00 Douglas Verduzco MD Bakari son VENOUS BLOOD GAS 2021-02-03 18:54:00 Douglas Verduzco MD Bakari son GLUCOSE LEVEL 2021-02-03 18:54:00 Douglas Verduzco MD on ELECTROLYTE PANEL 2021-02-03 18:54:00 Douglas Verduzco MD rson SERUM CREATININE 2021-02-03 18:54:00 Douglas Verduzco MD Bakari son .GLOMERULAR FILTRATION RATE 2021-02-03 18:54:00 Ruthie Verduzco MD CALCIUM IONIZED, VENOUS 2021-02-03 18:54:00 Douglas Verduzco BLOOD UREA NITROGEN 2021-02-03 18:54:00 Douglas Verduzco MD An derson XR CHEST 1 VW 2021-02-03 17:29:33 Douglas Verduzco MD on POC GLUCOSE SCREEN 2021-02-03 16:59:00 Bashir Dupree MD on PREPARE FRESH FROZEN PLASMA 2021-02-03 14:26:00 Renata Stout MD FFP PRODUCT READY FOR WOOD FLOOR LAYER 2021-02-03 14:26:00 Bashir Dupree MD OSCILLATORY PEP 2021-02-03 13:00:16 Briseyda Mg MD son POC GLUCOSE SCREEN 2021-02-03 11:00:00 Bashir Dupree MD on COMPLETE BLOOD COUNT W/ 2021-02-03 08:54:00 Rao Clement MD DIFFERENTIAL BASIC METABOLIC PANEL, 2021-02-03 08:54:00 Rao Clement MD CALCIUM IONIZED MAGNESIUM LEVEL 2021-02-03 08:54:00 Rao Clement MD Sly rson PHOSPHORUS LEVEL 2021-02-03 08:54:00 Rao Clement MD And erson HEPATIC FUNCTION PANEL 2021-02-03 08:54:00 Rao Clement MD PROTHROMBIN TIME 2021-02-03 08:54:00 Rao Clement MD And erson PARTIAL THROMBOPLASTIN TIME 2021-02-03 08:54:00 Rao Clement MD LACTIC ACID, VENOUS 2021-02-03 08:54:00 Rao Clement MD CMV QUANT PCR 2021-02-03 08:54:00 Bashir Dupree MD HP MOLECULAR BLOOD COLLECTION 2021-02-03 08:54:00 Bashir Dupree MD HHV7 QUANT SERUM 2021-02-03 08:54:00 Bashir Dupree MD AMYLASE LEVEL 2021-02-03 08:54:00 Bashir Dupree MD LIPASE LEVEL 2021-02-03 08:54:00 Bashir Dupree MD HEPATITIS C VIRUS ANTIBODY 2021-02-03 08:54:00 Joon, Bashir Easton HEPATITIS B SURFACE ANTIGEN, 2021-02-03 08:54:00 Joon, Bashir Easton SERUM HEPATITIS B CORE ANTIBODY 2021-02-03 08:54:00 Joon, Bashir Easton HAPTOGLOBIN 2021-02-03 08:54:00 Joon, Bashir Easton RETICULOCYTE COUNT AUTOMATED 2021-02-03 08:54:00 Joon, Bashir Easton FIBRINOGEN ACTIVITY 2021-02-03 08:54:00 Joon, Bashir DUARTE [facility] D DIMER 2021-02-03 08:54:00 Joon, Bashir Easton Results CBC 2021-02-03 08:54:00 Briseyda Mg MD [facility] MANUAL DIFFERENTIAL 2021-02-03 08:54:00 Briseyda Mg MDrstheodore GLUCOSE LEVEL 2021-02-03 08:54:00 Briseyda Mg MD [facility] BLOOD UREA NITROGEN 2021-02-03 08:54:00 [facility] PANEL 2021-02-03 08:54:00 Briseyda Mg MD And [facility] SERUM CREATININE 2021-02-03 08:54:00 [facility]GLOM[facility] FILTRATION RATE 2021-02-03 08:54:00 Brisedya Mg MD ALBUMIN LEVEL 2021-02-03 08:54:00 Briseyda Mg MD [facility] ALKALINE PHOSPHATASE 2021-02-03 08:54:00 Briseyda Mg MD ALANINE AMINOTRANSFERASE 2021-02-03 08:54:00 Briseyda Mg MD ASPARTATE AMINOTRANSFERASE 2021-02-03 08:54:00 Briseyda Mg MD TOTAL PROTEIN 2021-02-03 08:54:00 Briseyda Mg MD [facility] FRACTIONATED BILIRUBIN 2021-02-03 08:54:00 Briseyda Mg CALCIUM IONIZED, VENOUS 2021-02-03 08:54:00 Briseyda Mg MD HC REF HEPATITIS BC AB, IGG & 2021-02-03 08:54:00 Bashir Dupree MD IGM HEPATITIS B SURFACE AG 2021-02-03 08:54:00 Bashir Dupree MD W/CONFIRM HEPATITIS C VIRUS AB SCREEN 2021-02-03 08:54:00 Bashir Dupree MD W/REFLEX HCV PCR LACTATE DEHYDROGENASE 2021-02-03 08:54:00 Briseyda Mg MD FERRITIN LVL 2021-02-03 08:54:00 Briseyda Mg MD Bakari son HP MD [place] VIRUS 2021-02-03 08:54:00 Bashir Dupree MD QUANTITATIVE PCR ANALYSIS REPORT HHV6 QUANT, PLASMA 2021-02-03 08:54:00 Bashir Dupree MD on POC GLUCOSE SCREEN 2021-02-03 05:58:00 Bashir Dupree MD on URINALYSIS WITH MICROSCOPIC 2021-02-03 03:38:00 Chip Suárez MD IF INDICATED URINALYSIS MICROSCOPIC 2021-02-03 03:38:00 Ernesto Urbina MD URINE CULTURE 2021-02-03 03:38:00 Pacheco Suárez MD OSCILLATORY PEP 2021-02-03 01:00:21 Briseyda Mg MD VRE CULTURE 2021-02-03 00:16:00 Briseyda Mg MD EKG, 12-LEAD (PORTABLE) 2021-02-03 00:00:00 Ernesto Urbina MD POC GLUCOSE SCREEN 2021-02-02 23:37:00 Bashir Dupree MD on OSCILLATORY PEP 2021-02-02 23:10:23 Briseyda Mg MD LACTIC ACID, VENOUS 2021-02-02 22:24:00 Pacheco Suárez MD nderson TROPONIN T 2021-02-02 22:24:00 Dionisio Muniz MD LIPASE LEVEL 2021-02-02 22:24:00 Dionisio Muniz MD PATHOLOGY BIOPSY 2021-02-02 22:20:00 Kirsty Pollack MD INTERPRETATION RESPIRATORY VIRAL PANEL + 2021-02-02 18:30:00 Ernesto Urbina MD COVID-19, NASOPHARYNGEAL SWAB CREATINE KINASE 2021-02-02 17:48:00 Ernesto Urbina MD CKMB 2021-02-02 17:48:00 Ernesto Urbina MD TROPONIN T 2021-02-02 17:48:00 Ernesto Urbina MD POC CHEM 8 2021-02-02 17:29:00 Ernesto Urbina MD POC CRITICAL 2021-02-02 17:25:00 Ernesto Urbina MD POC VENOUS BLOOD GAS + 2021-02-02 17:25:00 Ernesto Urbina MD LACTATE COMPLETE BLOOD COUNT W/ 2021-02-02 17:22:00 Ernesto Urbina MD DIFFERENTIAL COMPREHENSIVE METABOLIC PANEL 2021-02-02 17:22:00 Laurel Urbina MD MAGNESIUM LEVEL 2021-02-02 17:22:00 Ernesto Urbina MD PHOSPHORUS LEVEL 2021-02-02 17:22:00 Ernesto Urbina MD on PROTHROMBIN TIME 2021-02-02 17:22:00 Ernesto Urbina MD on PARTIAL THROMBOPLASTIN TIME 2021-02-02 17:22:00 Bowen Urbina MD TYPE AND SCREEN 2021-02-02 17:22:00 Ernesto Urbina MD Results CBC 2021-02-02 17:22:00 Ernesto Urbina MD MANUAL DIFFERENTIAL 2021-02-02 17:22:00 Ernesto Urbina MD And opal GLUCOSE LEVEL 2021-02-02 17:22:00 Ernesto Urbina MD BLOOD UREA NITROGEN 2021-02-02 17:22:00 Ernesto Urbina MD And erson ELECTROLYTE PANEL 2021-02-02 17:22:00 Ernesto Urbina MD Bakari son SERUM CREATININE 2021-02-02 17:22:00 Ernesto Urbina MD on .GLOMERULAR FILTRATION RATE 2021-02-02 17:22:00 Bowen Urbina MD CALCIUM LEVEL TOTAL 2021-02-02 17:22:00 Ernesto Urbina MD And opal ALBUMIN LEVEL 2021-02-02 17:22:00 Ernesto Urbina MD ALKALINE PHOSPHATASE 2021-02-02 17:22:00 Ernesto Urbina MD ALANINE AMINOTRANSFERASE 2021-02-02 17:22:00 Ernesto Urbina ASPARTATE AMINOTRANSFERASE 2021-02-02 17:22:00 Ernesto Urbina MD TOTAL PROTEIN 2021-02-02 17:22:00 Ernesto Urbina MD FRACTIONATED BILIRUBIN 2021-02-02 17:22:00 Ernesto Urbina MD ABORH 2021-02-02 17:22:00 Ernesto Urbina MD ANTIBODY SCREEN MANUAL 2021-02-02 17:22:00 Ernesto Urbina MD CLOT EXPIRATION DATE 2021-02-02 17:22:00 Ernesto Urbina MDson BLOODCULTURE 2021-02-02 17:22:00 Ernesto Urbina MD COMPLETE BLOOD COUNT W/ 2021-01-27 13:30:00 Esdras Gardner MD DIFFERENTIAL TYPE AND SCREEN 2021-01-27 13:30:00 Esdras Gardner MD COMPREHENSIVE METABOLIC PANEL 2021-01-27 13:30:00 Esdras Gardner MD PHOSPHORUS LEVEL 2021-01-27 13:30:00 Esdras Gardner MD URIC ACID 2021-01-27 13:30:00 Esdras Gardner MD LACTATE DEHYDROGENASE 2021-01-27 13:30:00 Esdras Gardner MD MAGNESIUM LEVEL 2021-01-27 13:30:00 Esdras Gardner MD Results CBC 2021-01-27 13:30:00 Esdras Gardner MD MANUAL DIFFERENTIAL 2021-01-27 13:30:00 Esdras Gardner MD GLUCOSE LEVEL 2021-01-27 13:30:00 Esdras Gardner MD BLOOD UREA NITROGEN 2021-01-27 13:30:00 Esdras Gardner MD ELECTROLYTE PANEL 2021-01-27 13:30:00 Esdras Gardner MD on SERUM CREATININE 2021-01-27 13:30:00 Esdras Gardner MD .GLOMERULAR FILTRATION RATE 2021-01-27 13:30:00 Esdras Gardner MD CALCIUM LEVEL TOTAL 2021-01-27 13:30:00 Esdras Gardnere rstheodore ALBUMIN LEVEL 2021-01-27 13:30:00 Esdras Gardner MD ALKALINE PHOSPHATASE 2021-01-27 13:30:00 Esdras Gardner MD And erson ALANINE AMINOTRANSFERASE 2021-01-27 13:30:00 Esdras Gardner MD ASPARTATE AMINOTRANSFERASE 2021-01-27 13:30:00 Esdras Gardner MD TOTAL PROTEIN 2021-01-27 13:30:00 Esdras Gardner MD FRACTIONATED BILIRUBIN 2021-01-27 13:30:00 Esdras Gardner MD nderson ABORH 2021-01-27 13:30:00 Esdras Gardner MD ANTIBODY SCREEN 2021-01-27 13:30:00 Esdras Gardner MD CLOT EXPIRATION DATE 2021-01-27 13:30:00 Esdras Gardner MD And erstheodore TMP INTERPRETATION ANTIBODY 2021-01-27 13:30:00 Esdras Gardner MD SCREEN NEGATIVE COMPLETE BLOOD COUNT W/ 2021-01-23 14:52:00 Laura Gallegos MDrstheodore DIFFERENTIAL TYPE AND SCREEN 2021-01-23 14:52:00 Laura Gallegos MD COMPREHENSIVE METABOLIC PANEL 2021-01-23 14:52:00 Laura Gallegos MD PHOSPHORUS LEVEL 2021-01-23 14:52:00 Laura Gallegos MD URIC ACID 2021-01-23 14:52:00 Laura Gallegos MD LACTATE DEHYDROGENASE 2021-01-23 14:52:00 Laura Gallegos MD And erson MAGNESIUM LEVEL 2021-01-23 14:52:00 Laura Gallegos MD BETA 2 MICROGLOBULIN 2021-01-23 14:52:00 Laura Gallegos MD IMMUNOGLOBULIN A SERUM 2021-01-23 14:52:00 Laura Gallegos MD FREE KAPPA LIGHT CHAIN 2021-01-23 14:52:00 Laura Gallegos MDson PROTEIN ELECTROPHORESIS, 2021-01-23 14:52:00 Laura Gallegos MD SERUM IMMUNOFIXATION 2021-01-23 14:52:00 Laura Gallegos MD ELECTROPHORESIS Results CBC 2021-01-23 14:52:00 Laura Gallegos MD MANUAL DIFFERENTIAL 2021-01-23 14:52:00 Laura Gallegos MD GLUCOSE LEVEL 2021-01-23 14:52:00 Laura Gallegos MD BLOOD UREA NITROGEN 2021-01-23 14:52:00 Laura Gallegos MD ELECTROLYTE PANEL 2021-01-23 14:52:00 Laura Gallegos MD SERUM CREATININE 2021-01-23 14:52:00 Laura Gallegos MD .GLOMERULAR FILTRATION RATE 2021-01-23 14:52:00 Laura Gallegos MD CALCIUM LEVEL TOTAL 2021-01-23 14:52:00 Laura Gallegos MD ALBUMIN LEVEL 2021-01-23 14:52:00 Laura Gallegos MD ALKALINE PHOSPHATASE 2021-01-23 14:52:00 Laura Gallegos MD rstheodore ALANINE AMINOTRANSFERASE 2021-01-23 14:52:00 Laura Gallegos MD ASPARTATE AMINOTRANSFERASE 2021-01-23 14:52:00 Laura Gallegos TOTAL PROTEIN 2021-01-23 14:52:00 Laura Gallegos MD FRACTIONATED BILIRUBIN 2021-01-23 14:52:00 Laura Gallegos MD derson ABORH 2021-01-23 14:52:00 Laura Gallegos MD ANTIBODY SCREEN 2021-01-23 14:52:00 Laura Gallegos MD FREE KAPPA/FREE LAMBDA RATIO 2021-01-23 14:52:00 Laura Gallegos MD CLOT EXPIRATION DATE 2021-01-23 14:52:00 Laura Gallegos MD rstheodore TMP INTERPRETATION ANTIBODY 2021-01-23 14:52:00 Laura Gallegos MD SCREEN NEGATIVE IMMUNOFIXATION 2021-01-23 14:30:00 Laura Gallegos MD ELECTROPHORESIS URINE PROTEIN ELECTROPHORESIS URINE 2021-01-23 14:30:00 Laura Gallegos MD URINE TOTAL PROTEIN 2021-01-23 14:30:00 Laura Gallegos MD .TOTAL VOLUME 2021-01-23 14:30:00 Laura Gallegos MD .DR. BETINA Manrique PROT ELEC PATH 2021-01-23 14:30:00 Laura Gallegos MD REVIEW .DR ORDAZ UIFE PATH REVIEW 2021-01-23 14:30:00 Laura Gallegos MD COMPLETE BLOOD COUNT W/ 2021-01-20 13:17:00 Barney Rincon DIFFERENTIAL TYPE AND SCREEN 2021-01-20 13:17:00 Barney Rincon MD on COMPREHENSIVE METABOLIC PANEL 2021-01-20 13:17:00 Augustine Rincon MD PHOSPHORUS LEVEL 2021-01-20 13:17:00 Barney Rincon MD Bakari son URIC ACID 2021-01-20 13:17:00 Barney Rinconers on LACTATE DEHYDROGENASE 2021-01-20 13:17:00 Barney Rincon MD MAGNESIUM LEVEL 2021-01-20 13:17:00 Barney Rincon MD Shamar on Results CBC 2021-01-20 13:17:00 Barney Rincon MD on MANUAL DIFFERENTIAL 2021-01-20 13:17:00 Barney Rincon MDson ABORH 2021-01-20 13:17:00 Barney Rinconers on ANTIBODY SCREEN 2021-01-20 13:17:00 Barney Rincon MD on GLUCOSE LEVEL 2021-01-20 13:17:00 Barney Rincon MD Shamar on BLOOD UREA NITROGEN 2021-01-20 13:17:00 Barney Rincon MD ELECTROLYTE PANEL 2021-01-20 13:17:00 Barney Rincon MD Sly rson SERUM CREATININE 2021-01-20 13:17:00 Barney Rincon MD Bakari son .GLOMERULAR FILTRATION RATE 2021-01-20 13:17:00 Barney Rincon MD CALCIUM LEVEL TOTAL 2021-01-20 13:17:00 Barney Rincon MD ALBUMIN LEVEL 2021-01-20 13:17:00 Barney Rincon MD Shamar on ALKALINE PHOSPHATASE 2021-01-20 13:17:00 Barney Rincon MD nderson ALANINE AMINOTRANSFERASE 2021-01-20 13:17:00 Barney Rincon MD ASPARTATE AMINOTRANSFERASE 2021-01-20 13:17:00 Barney Rincon MD TOTAL PROTEIN 2021-01-20 13:17:00 Barney Rincon MD Shamar on FRACTIONATED BILIRUBIN 2021-01-20 13:17:00 Barney Rincon MD CLOT EXPIRATION DATE 2021-01-20 13:17:00 Barney Rincon MD TMP INTERPRETATION ANTIBODY 2021-01-20 13:17:00 Barney Rincon MD SCREEN NEGATIVE COMPLETE BLOOD COUNT W/ 2021-01-17 13:41:00 Chrystal Maier MD DIFFERENTIAL COMPREHENSIVE METABOLIC PANEL 2021-01-17 13:41:00 Chrystal Maier MD MAGNESIUM LEVEL 2021-01-17 13:41:00 Chrystal Maier MD Andantonia hadley LACTATE DEHYDROGENASE 2021-01-17 13:41:00 Chrystal Maier MD URIC ACID 2021-01-17 13:41:00 Chrystal Maier MD Andparisho jomar PHOSPHORUS LEVEL 2021-01-17 13:41:00 Chrystal Maier MD Shamar on TYPE AND SCREEN 2021-01-17 13:41:00 Chrystal Maier MD Andantonia hadley Results CBC 2021-01-17 13:41:00 Chrystal Maier MD Andantonia n MANUAL DIFFERENTIAL 2021-01-17 13:41:00 Chrystal Maier MD And erson GLUCOSE LEVEL 2021-01-17 13:41:00 Chrystal Maier MD Andparisho n BLOOD UREA NITROGEN 2021-01-17 13:41:00 Chrystal Maier MD And erson ELECTROLYTE PANEL 2021-01-17 13:41:00 Chrystal Maier MD Bakari son SERUM CREATININE 2021-01-17 13:41:00 Chrystal Maier MD Shamar on .GLOMERULAR FILTRATION RATE 2021-01-17 13:41:00 Chrystal Maier MD CALCIUM LEVEL TOTAL 2021-01-17 13:41:00 Chrystal Maier ALBUMIN LEVEL 2021-01-17 13:41:00 Chrystal Maier MD ALKALINE PHOSPHATASE 2021-01-17 13:41:00 Chrystal Maier MD ALANINE AMINOTRANSFERASE 2021-01-17 13:41:00 Chrystal Maier ASPARTATE AMINOTRANSFERASE 2021-01-17 13:41:00 Chrystal Maier MD TOTAL PROTEIN 2021-01-17 13:41:00 Chrystal Maier MD FRACTIONATED BILIRUBIN 2021-01-17 13:41:00 Chrystal Maier MD ABORH 2021-01-17 13:41:00 Chrystal Maier MD ANTIBODY SCREEN 2021-01-17 13:41:00 Chrystal Maier MD CLOT EXPIRATION DATE 2021-01-17 13:41:00 Chrystal Maier MD GENERAL LABORATORY ADD ON 2021-01-16 13:22:00 Kristyn Mcneill MD TEST COMPLETE BLOOD COUNT W/ 2021-01-16 10:16:00 Bashir Dupree MD DIFFERENTIAL BASIC METABOLIC PANEL, 2021-01-16 10:16:00 Bashir Dupree MD CALCIUM TOTAL BILIRUBIN TOTAL 2021-01-16 10:16:00 Bashir Dupree MD CALCIUM IONIZED, VENOUS 2021-01-16 10:16:00 Chrystal Maier MD GLUCOSE LEVEL 2021-01-16 10:16:00 Bashir Dupree MD BLOOD UREA NITROGEN 2021-01-16 10:16:00 Bashir Dupree MD ELECTROLYTE PANEL 2021-01-16 10:16:00 Bashir Dupree MD SERUM CREATININE 2021-01-16 10:16:00 Bashir Dupree MD .GLOMERULAR FILTRATION RATE 2021-01-16 10:16:00 Bashir Dupree MD CALCIUM LEVEL TOTAL 2021-01-16 10:16:00 Bashir Dupree MD Results CBC 2021-01-16 10:16:00 Bashir Dupree MD MANUAL DIFFERENTIAL 2021-01-16 10:16:00 Bashir Dupree MD MAGNESIUM LEVEL 2021-01-16 10:16:00 Roma Shahid MD POTASSIUM LEVEL 2021-01-15 21:04:00 Kristyn Mcneill MD CATHETER TIP CULTURE 2021-01-15 19:03:00 Kristyn Mcneill MD Sly rson GASTROINTESTINAL MULTIPLEX 2021-01-15 17:09:00 Kristyn cMneill PANEL PATH REVIEW GASTROINTESTINAL MULTIPLEX 2021-01-15 17:09:00 Kristyn Mcneill PANEL C DIFFICILE DNA ASSAY 2021-01-15 17:09:00 Kristyn Mcneill MD And erson C DIFFICILE DNA ASSAY PATH 2021-01-15 17:09:00 Kristyn Mcneill REVIEW COVID-19 (SARS-COV-2) 2021-01-15 16:01:00 Roma Shahid MD And erson PCR-ASYMPTOMATIC MC COMPLETE BLOOD COUNT W/ 2021-01-15 09:14:00 Bashir Dupree MD nderson DIFFERENTIAL COMPREHENSIVE METABOLIC PANEL 2021-01-15 09:14:00 Bashir Dupree MD LACTATE DEHYDROGENASE 2021-01-15 09:14:00 Bashir Dupree MD And erson PHOSPHORUS LEVEL 2021-01-15 09:14:00 Bashir Dupree MD MAGNESIUM LEVEL 2021-01-15 09:14:00 Bashir Dupree MD URIC ACID 2021-01-15 09:14:00 Bashir Dupree MD PROTHROMBIN TIME 2021-01-15 09:14:00 Bashir Dupree MD PARTIAL THROMBOPLASTIN TIME 2021-01-15 09:14:00 Bashir Dupree MD CALCIUM IONIZED, VENOUS 2021-01-15 09:14:00 Chrystal Maier MD CREATINE KINASE 2021-01-15 09:14:00 Miguel Drake MDson Results CBC 2021-01-15 09:14:00 Bashir Dpuree MD MANUAL DIFFERENTIAL 2021-01-15 09:14:00 Bashir Dupree MD GLUCOSE LEVEL 2021-01-15 09:14:00 Joon, Bashir Easton BLOOD UREA NITROGEN 2021-01-15 09:14:00 Joon, Bashir akbar ELECTROLYTE PANEL 2021-01-15 09:14:00 Joon, Bashir hadley SERUM CREATININE 2021-01-15 09:14:00 Joon, Bashir Easton .GLOMERULAR FILTRATION RATE 2021-01-15 09:14:00 Joon, Bashir Easton CALCIUM LEVEL TOTAL 2021-01-15 09:14:00 Joon, Bashir akbar ALBUMIN LEVEL 2021-01-15 09:14:00 Joon, Bashir Easton ALKALINE PHOSPHATASE 2021-01-15 09:14:00 Joon, Bashir mathis ALANINE AMINOTRANSFERASE 2021-01-15 09:14:00 Joon, Bashir Easton ASPARTATE AMINOTRANSFERASE 2021-01-15 09:14:00 Joon, Bashir Easton TOTAL PROTEIN 2021-01-15 09:14:00 Joon, Bashir Easton FRACTIONATED BILIRUBIN 2021-01-15 09:14:00 Joon, Bashir vivas XR CHEST 2 VW 2021-01-15 02:53:28 Latiff, Miguel vivas URINALYSIS WITH MICROSCOPIC 2021-01-15 00:50:00 Latiff, Ke-Magdiel Easton IF INDICATED URINALYSIS MICROSCOPIC 2021-01-15 00:50:00 Latiff, Miguel Easton URINE CULTURE 2021-01-15 00:50:00 Latiff, Miguel vivas BLOODCULTURE 2021-01-15 00:31:00 Latiff, Miguel vivas BLOODCULTURE 2021-01-15 00:18:00 Latiff, Miguel vivas POTASSIUM LEVEL 2021-01-14 18:55:00 Kristyn Mcneill MD COMPLETE BLOOD COUNT W/ 2021-01-14 09:47:00 Joon, Bashir lanrstheodore DIFFERENTIAL BASIC METABOLIC PANEL, 2021-01-14 09:47:00 Joon, Bashir vivas CALCIUM TOTAL BILIRUBIN TOTAL 2021-01-14 09:47:00 Joon, Bashir Easton CALCIUM IONIZED, VENOUS 2021-01-14 09:47:00 Chrystal Maier MD TYPE AND SCREEN 2021-01-14 09:47:00 Joon, Bashir Easton GLUCOSE LEVEL 2021-01-14 09:47:00 Joon, Bashir Easton BLOOD UREA NITROGEN 2021-01-14 09:47:00 Joon, Bashir akbar ELECTROLYTE PANEL 2021-01-14 09:47:00 Joon, Bashir Slaughter n SERUM CREATININE 2021-01-14 09:47:00 Joon, Bashir Easton .GLOMERULAR FILTRATION RATE 2021-01-14 09:47:00 Joon, Bashir Easton CALCIUM LEVEL TOTAL 2021-01-14 09:47:00 Joon, Bashir DUARTE Bakari son Results CBC 2021-01-14 09:47:00 Joon, Bashir Easton MANUAL DIFFERENTIAL 2021-01-14 09:47:00 Joon, Bashir DUARTE Bakari son ABORH 2021-01-14 09:47:00 Joon, Bashir Easton ANTIBODY SCREEN 2021-01-14 09:47:00 Joon, Bashir Easton CLOT EXPIRATION DATE 2021-01-14 09:47:00 Joon, Bashir Heart rson TMP INTERPRETATION ANTIBODY 2021-01-14 09:47:00 Joon, Bashir Easton SCREEN NEGATIVE COMPLETE BLOOD COUNT W/ 2021-01-13 08:33:00 Joon, Bashir Huerta nderson DIFFERENTIAL COMPREHENSIVE METABOLIC PANEL 2021-01-13 08:33:00 Joon, Bashir Easton LACTATE DEHYDROGENASE 2021-01-13 08:33:00 Joon, Bashir DUARTE And erstheodore PHOSPHORUS LEVEL 2021-01-13 08:33:00 Joon, Bashir Easton MAGNESIUM LEVEL 2021-01-13 08:33:00 Joon, Bashir Easton URIC ACID 2021-01-13 08:33:00 Joon, Bashir Easton Results CBC 2021-01-13 08:33:00 Joon, Bashir Easton MANUAL DIFFERENTIAL 2021-01-13 08:33:00 Joon, Bashir akbar GLUCOSE LEVEL 2021-01-13 08:33:00 Joon, Bashir Easton BLOOD UREA NITROGEN 2021-01-13 08:33:00 Joon, Bashir akbar ELECTROLYTE PANEL 2021-01-13 08:33:00 Joon, Bashir hadley SERUM CREATININE 2021-01-13 08:33:00 Joon, Bashir Easton .GLOMERULAR FILTRATION RATE 2021-01-13 08:33:00 Joon, Bashir Easton CALCIUM LEVEL TOTAL 2021-01-13 08:33:00 Joon, Bashir akbar ALBUMIN LEVEL 2021-01-13 08:33:00 Joon, Bashir Easton ALKALINE PHOSPHATASE 2021-01-13 08:33:00 Joon, Bashir mathis ALANINE AMINOTRANSFERASE 2021-01-13 08:33:00 Joon, Bashir Easton ASPARTATE AMINOTRANSFERASE 2021-01-13 08:33:00 Joon, Bashir Easton TOTAL PROTEIN 2021-01-13 08:33:00 Joon, Bashir Easton FRACTIONATED BILIRUBIN 2021-01-13 08:33:00 Joon, Bashir vivas GENERAL LABORATORY ADD ON 2021-01-12 12:51:00 Pablo Betts MD TEST COMPLETE BLOOD COUNT W/ 2021-01-12 08:33:00 Joon, Bashir Huerta nderson DIFFERENTIAL BASIC METABOLIC PANEL, 2021-01-12 08:33:00 Joon, Bashir vivas CALCIUM TOTAL BILIRUBIN TOTAL 2021-01-12 08:33:00 Joon, Bashir Easton GLUCOSE LEVEL 2021-01-12 08:33:00 Joon, Bashir Easton BLOOD UREA NITROGEN 2021-01-12 08:33:00 Joon, Bashir akbar ELECTROLYTE PANEL 2021-01-12 08:33:00 Joon, Bashir hadley SERUM CREATININE 2021-01-12 08:33:00 Joon, Bashir Easton .GLOMERULAR FILTRATION RATE 2021-01-12 08:33:00 Joon, Bashir Easton CALCIUM LEVEL TOTAL 2021-01-12 08:33:00 Joon, Bashir akbar Results CBC 2021-01-12 08:33:00 Joon, Bashir Easton MANUAL DIFFERENTIAL 2021-01-12 08:33:00 Joon, Bashir DUARTE Bakari akbar PHOSPHORUS LEVEL 2021-01-12 08:33:00 Bashir Dupree MD BLOODCULTURE 2021-01-12 03:02:00 Checo Paula MD URINALYSIS WITH MICROSCOPIC 2021-01-12 02:28:00 Checo Paula MD IF INDICATED URINALYSIS MICROSCOPIC 2021-01-12 02:28:00 Checo Paula MD URINE CULTURE 2021-01-12 02:28:00 Checo Paula MD BLOODCULTURE 2021-01-12 01:44:00 Checo Paula MD COMPLETE BLOOD COUNT W/ 2021-01-11 08:43:00 Joon, Bashir Huerta nderson DIFFERENTIAL BASIC METABOLIC PANEL, 2021-01-11 08:43:00 Joon, Bashir vivas CALCIUM TOTAL BILIRUBIN TOTAL 2021-01-11 08:43:00 Joon, Bashir Easton TYPE AND SCREEN 2021-01-11 08:43:00 Bashir Dupree MD MAGNESIUM LEVEL 2021-01-11 08:43:00 Kristyn Mcneill MD GLUCOSE LEVEL 2021-01-11 08:43:00 Joon, Bashir Easton BLOOD UREA NITROGEN 2021-01-11 08:43:00 Joon, Bashir DUARTE Bakari akbar ELECTROLYTE PANEL 2021-01-11 08:43:00 Joon, Bashir hadley SERUM CREATININE 2021-01-11 08:43:00 Joon, Bashir Easton .GLOMERULAR FILTRATION RATE 2021-01-11 08:43:00 Bashir Dupree MD CALCIUM LEVEL TOTAL 2021-01-11 08:43:00 Joon, Bashir DUARTE Bakari akbar Results CBC 2021-01-11 08:43:00 Joon, Bashir Easton MANUAL DIFFERENTIAL 2021-01-11 08:43:00 Joon, Bashir DUARTE Bakari son ABORH 2021-01-11 08:43:00 Bashir Dupree MD ANTIBODY SCREEN 2021-01-11 08:43:00 Bashir Dupree MD CLOT EXPIRATION DATE 2021-01-11 08:43:00 Bashir Dupree MD Sly rson TMP INTERPRETATION ANTIBODY 2021-01-11 08:43:00 Bashir Dupree MD SCREEN NEGATIVE BLOODCULTURE 2021-01-11 03:12:00 Zhane Buchanan MD BLOODCULTURE 2021-01-11 02:43:00 Zhane Buchanan MD BASIC METABOLIC PANEL, 2021-01-10 21:02:00 Kristyn Mcneill MDson CALCIUM TOTAL GLUCOSE LEVEL 2021-01-10 21:02:00 Kristyn Mcneill MD BLOOD UREA NITROGEN 2021-01-10 21:02:00 Kristyn Mcneill MD Bak[facility] ELECTROLYTE PANEL 2021-01-10 21:02:00 Kristyn Mcneill MD SERUM CREATININE 2021-01-10 21:02:00 Kristyn Mcneill MD .GLOMERULAR FILTRATION RATE 2021-01-10 21:02:00 Kristyn Mcneill MD CALCIUM LEVEL TOTAL 2021-01-10 21:02:00 Kristyn Mcneill MD Bakari [facility] GASTROINTESTINAL MULTIPLEX 2021-01-10 16:10:00 Kristyn Mcneill PANEL PATH REVIEW GASTROINTESTINAL MULTIPLEX 2021-01-10 16:10:00 Kristyn Mcneill PANEL C DIFFICILE DNA ASSAY 2021-01-10 16:10:00 Kristyn Mcneill MD And erson C DIFFICILE DNA ASSAY PATH 2021-01-10 16:10:00 Kristyn Mcneill REVIEW COMPLETE BLOOD COUNT W/ 2021-01-10 05:37:00 Bashir Dupree MD DIFFERENTIAL COMPREHENSIVE METABOLIC PANEL 2021-01-10 05:37:00 Bashir Dupree MD LACTATE DEHYDROGENASE 2021-01-10 05:37:00 Bashir Dupree MD And erson PHOSPHORUS LEVEL 2021-01-10 05:37:00 Bashir Dupree MD MAGNESIUM LEVEL 2021-01-10 05:37:00 Bashir Dupree MD URIC ACID 2021-01-10 05:37:00 Bashir Dupree MD Results CBC 2021-01-10 05:37:00 Joon, Bashir Easton MANUAL DIFFERENTIAL 2021-01-10 05:37:00 Joon, Bashir akbar GLUCOSE LEVEL 2021-01-10 05:37:00 Joon, Bashir Easton BLOOD UREA NITROGEN 2021-01-10 05:37:00 Joon, Bashir akbar ELECTROLYTE PANEL 2021-01-10 05:37:00 Joon, Bashir hadley SERUM CREATININE 2021-01-10 05:37:00 Joon, Bashir Easton .GLOMERULAR FILTRATION RATE 2021-01-10 05:37:00 Joon, Bashir Easton CALCIUM LEVEL TOTAL 2021-01-10 05:37:00 Joon, Bashir akbar ALBUMIN LEVEL 2021-01-10 05:37:00 Joon, Bashir Easton ALKALINE PHOSPHATASE 2021-01-10 05:37:00 Joon, Bashir mathis ALANINE AMINOTRANSFERASE 2021-01-10 05:37:00 Joon, Bashir Easton ASPARTATE AMINOTRANSFERASE 2021-01-10 05:37:00 Joon, Bashir Easton TOTAL PROTEIN 2021-01-10 05:37:00 Joon, Bashir Easton FRACTIONATED BILIRUBIN 2021-01-10 05:37:00 Joon, Bashir vivas BLOODCULTURE 2021-01-10 02:28:00 Ric Seymour MD BLOODCULTURE 2021-01-10 02:00:00 Ric Seymour MD TRANSFUSE RED BLOOD CELLS 2021-01-09 17:57:16 Roma Shahid MD PREPARE RBC 2021-01-09 10:59:00 Roma Shahid MD COMPLETE BLOOD COUNT W/ 2021-01-09 10:01:00 Bashir Dupree MD DIFFERENTIAL BASIC METABOLIC PANEL, 2021-01-09 10:01:00 Bashir Dupree MD CALCIUM TOTAL BILIRUBIN TOTAL 2021-01-09 10:01:00 Bashir Dupree MD GLUCOSE LEVEL 2021-01-09 10:01:00 Bashir Dupree MD BLOOD UREA NITROGEN 2021-01-09 10:01:00 Joon, Bashir akbar ELECTROLYTE PANEL 2021-01-09 10:01:00 Bashir Dupree MD SERUM CREATININE 2021-01-09 10:01:00 Bashir Dupree MD .GLOMERULAR FILTRATION RATE 2021-01-09 10:01:00 Bashir Dupree MD CALCIUM LEVEL TOTAL 2021-01-09 10:01:00 Bashir Dupree MD Bakari akbar Results CBC 2021-01-09 10:01:00 Bashir Dupree MD DIFFERENTIAL CANCEL 2021-01-09 10:01:00 Bashir Dupree MD Bakari akbar TRANSFUSE PLATELETS 2021-01-09 05:52:29 Roma Shahid MD Bakari akbar TRANSFUSE RED BLOOD CELLS 2021-01-08 23:51:07 Roma Shahid MD URINALYSIS WITH MICROSCOPIC 2021-01-08 17:52:00 Emil Betts MD IF INDICATED URINALYSIS MICROSCOPIC 2021-01-08 17:52:00 Ranjit Vazquez MDson URINE CULTURE 2021-01-08 17:52:00 Kristyn Mcneill MD LACTIC ACID, VENOUS 2021-01-08 14:20:00 Kristyn Mcneill MD Bakari akbar XR CHEST 1 VW 2021-01-08 12:42:38 Jillian Villagran MD PREPARE PLATELETS 2021-01-08 11:55:00 Roma Shahid MD PREPARE RBC 2021-01-08 11:54:00 Roma Shahid MD BLOODCULTURE 2021-01-08 10:48:00 Jillian Villagran MD COMPLETE BLOOD COUNT W/ 2021-01-08 10:40:00 Bashir Dupree MDrstheodore DIFFERENTIAL COMPREHENSIVE METABOLIC PANEL 2021-01-08 10:40:00 Bashir Dupree MD LACTATE DEHYDROGENASE 2021-01-08 10:40:00 Bashir Dupree erstheodore PHOSPHORUS LEVEL 2021-01-08 10:40:00 Bashir Dupree MD MAGNESIUM LEVEL 2021-01-08 10:40:00 Bashir Dupree MD URIC ACID 2021-01-08 10:40:00 Bashir Dupree MD PROTHROMBIN TIME 2021-01-08 10:40:00 Joon, Bashir Easton PARTIAL THROMBOPLASTIN TIME 2021-01-08 10:40:00 Joon, Bashir Easton TYPE AND SCREEN 2021-01-08 10:40:00 Joon, Bashir Easton Results CBC 2021-01-08 10:40:00 Joon, Bashir Easton GLUCOSE LEVEL 2021-01-08 10:40:00 Joon, Bashir Easton BLOOD UREA NITROGEN 2021-01-08 10:40:00 Joon, Bashir DUARTE Bakari naomie ELECTROLYTE PANEL 2021-01-08 10:40:00 Joon, Bashir hadley SERUM CREATININE 2021-01-08 10:40:00 Joon, Bashir Easton .GLOMERULAR FILTRATION RATE 2021-01-08 10:40:00 Joon, Bashir Easton CALCIUM LEVEL TOTAL 2021-01-08 10:40:00 Joon, Bashir DUARTE Bakari akbar ALBUMIN LEVEL 2021-01-08 10:40:00 Joon, Bashir Easton ALKALINE PHOSPHATASE 2021-01-08 10:40:00 Joon, Bashir Heart rson ALANINE AMINOTRANSFERASE 2021-01-08 10:40:00 Joon, Bashir Easton ASPARTATE AMINOTRANSFERASE 2021-01-08 10:40:00 Joon, Bashir Easton TOTAL PROTEIN 2021-01-08 10:40:00 Joon, Bashir Easton FRACTIONATED BILIRUBIN 2021-01-08 10:40:00 Joon, Bashir Santos derson ABORH 2021-01-08 10:40:00 Joon, Bashir Easton ANTIBODY SCREEN 2021-01-08 10:40:00 Joon, Bashir Easton DIFFERENTIAL CANCEL 2021-01-08 10:40:00 Joon, Bashir Villegas naomie CLOT EXPIRATION DATE 2021-01-08 10:40:00 Joon, Bashir Heart rson TMP INTERPRETATION ANTIBODY 2021-01-08 10:40:00 Joon, Bashir Easton SCREEN NEGATIVE TMP CROSSMATCH INTERPRETATION 2021-01-08 10:40:00 Joon, Bashir Easton BLOODCULTURE 2021-01-08 10:40:00 Jillian Villagran MD TRANSFUSE PLATELETS 2021-01-07 21:44:43 Roma Shahid MD PROTEIN / CREATININE RATIO 2021-01-07 20:00:00 Nory Betts MD URINE US RENAL 2021-01-07 18:33:23 Kristyn Mcneill MD MICROBIOLOGY LABORATORY ADD 2021-01-07 17:12:00 Kristyn Mcneill MD ON TEST SODIUM URINE 2021-01-07 16:54:00 Kristyn Mcneill MD CREATININE URINE, RANDOM 2021-01-07 16:54:00 Kristyn Mcneill MD PREPARE PLATELETS 2021-01-07 11:54:00 Roma Shahid MD COMPLETE BLOOD COUNT W/ 2021-01-07 09:47:00 Bashir Dupree MD nderson DIFFERENTIAL BASIC METABOLIC PANEL, 2021-01-07 09:47:00 Bashir Dupree MD derson CALCIUM TOTAL BILIRUBIN TOTAL 2021-01-07 09:47:00 Bashir Dupree MD VANCOMYCIN LEVEL TROUGH 2021-01-07 09:47:00 Roma Shahid MDrson GLUCOSE LEVEL 2021-01-07 09:47:00 Bashir Dupree MD BLOOD UREA NITROGEN 2021-01-07 09:47:00 Joon, Bashir akbar ELECTROLYTE PANEL 2021-01-07 09:47:00 Joon, Bashir hadley SERUM CREATININE 2021-01-07 09:47:00 Bashir Dupree MD .GLOMERULAR FILTRATION RATE 2021-01-07 09:47:00 Bashir Dupree MD CALCIUM LEVEL TOTAL 2021-01-07 09:47:00 Bashir Dupree MD Results CBC 2021-01-07 09:47:00 Bashir Dupree MD DIFFERENTIAL CANCEL 2021-01-07 09:47:00 Bashir Dupree MD son BLOODCULTURE 2021-01-07 02:19:00 Clayton Burns MD on BLOODCULTURE 2021-01-07 01:22:00 Clayton Burns MD on COMPLETE BLOOD COUNT W/ 2021-01-06 09:19:00 JoonBashir loza MD nderson DIFFERENTIAL COMPREHENSIVE METABOLIC PANEL 2021-01-06 09:19:00 Joon, Bashir Easton LACTATE DEHYDROGENASE 2021-01-06 09:19:00 Joon, Bashir Norman PHOSPHORUS LEVEL 2021-01-06 09:19:00 Joon, Bashir Easton MAGNESIUM LEVEL 2021-01-06 09:19:00 Joon, Bashir Easton URIC ACID 2021-01-06 09:19:00 Joon, Bashir Easton Results CBC 2021-01-06 09:19:00 Joon, Bashir Easton GLUCOSE LEVEL 2021-01-06 09:19:00 Joon, Bashir Easton BLOOD UREA NITROGEN 2021-01-06 09:19:00 Joon, Bashir akbar ELECTROLYTE PANEL 2021-01-06 09:19:00 Joon, Bashir Slaughter n SERUM CREATININE 2021-01-06 09:19:00 Joon, Bashir Easton .GLOMERULAR FILTRATION RATE 2021-01-06 09:19:00 Joon, Bashir Easton CALCIUM LEVEL TOTAL 2021-01-06 09:19:00 Joon, Bashir DUARTE Bakarimargarita akbar ALBUMIN LEVEL 2021-01-06 09:19:00 Joon, Bashir Easton ALKALINE PHOSPHATASE 2021-01-06 09:19:00 Joon, Bashir mathis ALANINE AMINOTRANSFERASE 2021-01-06 09:19:00 Joon, Bashir Easton ASPARTATE AMINOTRANSFERASE 2021-01-06 09:19:00 Joon, Bashir Easton TOTAL PROTEIN 2021-01-06 09:19:00 Joon, Bashir Easton FRACTIONATED BILIRUBIN 2021-01-06 09:19:00 Joon, Bashir vivas DIFFERENTIAL CANCEL 2021-01-06 09:19:00 Joon, Bashir akbar BLOODCULTURE 2021-01-05 22:35:00 Joon, Bashir Easton XR CHEST 2 VW 2021-01-05 22:25:31 Joon, Bashir Easton URINALYSIS WITH MICROSCOPIC 2021-01-05 21:50:00 Joon, Bashir Easton IF INDICATED URINALYSIS MICROSCOPIC 2021-01-05 21:50:00 Joon, Bashir vivas URINE CULTURE 2021-01-05 21:50:00 Joon, Bashir Easton BLOODCULTURE 2021-01-05 21:50:00 Joon, Bashir Easton TYPE AND SCREEN 2021-01-05 08:42:00 Joon, Bashir Easton COMPLETE BLOOD COUNT W/ 2021-01-05 08:42:00 Joon, Bashir gonzalez DIFFERENTIAL BASIC METABOLIC PANEL, 2021-01-05 08:42:00 Joon, Bashir vviasson CALCIUM TOTAL BILIRUBIN TOTAL 2021-01-05 08:42:00 Joon, Bashir Easton ABORH 2021-01-05 08:42:00 Joon, Bashir Easton ANTIBODY SCREEN 2021-01-05 08:42:00 Joon, Bashir Easton GLUCOSE LEVEL 2021-01-05 08:42:00 Joon, Bashir Easton BLOOD UREA NITROGEN 2021-01-05 08:42:00 Joon, Bashir akbar ELECTROLYTE PANEL 2021-01-05 08:42:00 Joon, Bashir Slaughter n SERUM CREATININE 2021-01-05 08:42:00 Jono, Bashir Easton .GLOMERULAR FILTRATION RATE 2021-01-05 08:42:00 Joon, Bashir Easton CALCIUM LEVEL TOTAL 2021-01-05 08:42:00 Joon, Bashir akbar Results CBC 2021-01-05 08:42:00 Joon, Bashir Easton DIFFERENTIAL CANCEL 2021-01-05 08:42:00 Joon, Bashir akbar TMP INTERPRETATION ANTIBODY 2021-01-05 08:42:00 Joon, Bashir Easton SCREEN NEGATIVE CLOT EXPIRATION DATE 2021-01-05 08:42:00 Joon, Bashir Heart rson COMPLETE BLOOD COUNT W/ 2021-01-04 10:13:00 Joon, Basihr gonzalez DIFFERENTIAL BASIC METABOLIC PANEL, 2021-01-04 10:13:00 Joon, Bashir vivas CALCIUM TOTAL BILIRUBIN TOTAL 2021-01-04 10:13:00 Joon, Bashir Easton GLUCOSE LEVEL 2021-01-04 10:13:00 Joon, Bashir Easton BLOOD UREA NITROGEN 2021-01-04 10:13:00 Joon, Bashir DUARTE Bakari son ELECTROLYTE PANEL 2021-01-04 10:13:00 Joon, Bashir Slaughter n SERUM CREATININE 2021-01-04 10:13:00 Joon, Bashir Easton .GLOMERULAR FILTRATION RATE 2021-01-04 10:13:00 Joon, aBshir Easton CALCIUM LEVEL TOTAL 2021-01-04 10:13:00 Joon, Bashir DUARTE Bakari son Results CBC 2021-01-04 10:13:00 Joon, Bashir Easton MANUAL DIFFERENTIAL 2021-01-04 10:13:00 Joon, Bashir DUARTE Bakari son COMPLETE BLOOD COUNT W/ 2021-01-03 09:15:00 Joon, Bashir Huerta nderson DIFFERENTIAL COMPREHENSIVE METABOLIC PANEL 2021-01-03 09:15:00 Joon, Bashir Easton LACTATE DEHYDROGENASE 2021-01-03 09:15:00 Joon, Bashir DUARTE And opal PHOSPHORUS LEVEL 2021-01-03 09:15:00 Joon, Bashir Easton MAGNESIUM LEVEL 2021-01-03 09:15:00 Joon, Bashir Easton URIC ACID 2021-01-03 09:15:00 Joon, Bashir Easton Results CBC 2021-01-03 09:15:00 Joon, Bashir Easton MANUAL DIFFERENTIAL 2021-01-03 09:15:00 Joon, Bashir DUARTE Bakari son GLUCOSE LEVEL 2021-01-03 09:15:00 Joon, Bashir Easton BLOOD UREA NITROGEN 2021-01-03 09:15:00 Joon, Bashir DUARTE Bakari son ELECTROLYTE PANEL 2021-01-03 09:15:00 Joon, Bashir Slaughter n SERUM CREATININE 2021-01-03 09:15:00 Joon, Bashir Easton .GLOMERULAR FILTRATION RATE 2021-01-03 09:15:00 Joon, Bashir Easton CALCIUM LEVEL TOTAL 2021-01-03 09:15:00 Joon, Bashir DUARTE Bakari son ALBUMIN LEVEL 2021-01-03 09:15:00 Joon, Bashir Easton ALKALINE PHOSPHATASE 2021-01-03 09:15:00 Joon, Bashir Heart rson ALANINE AMINOTRANSFERASE 2021-01-03 09:15:00 Joon, Bashir Easton ASPARTATE AMINOTRANSFERASE 2021-01-03 09:15:00 Joon, Bashir Easton TOTAL PROTEIN 2021-01-03 09:15:00 Joon, Bashir Easton FRACTIONATED BILIRUBIN 2021-01-03 09:15:00 Joon, Bashir vivasson TYPE AND SCREEN 2021-01-02 10:22:00 Joon, Bashir Easton COMPLETE BLOOD COUNT W/ 2021-01-02 10:22:00 Joon, Bashir gonzalez DIFFERENTIAL BASIC METABOLIC PANEL, 2021-01-02 10:22:00 Joon, Bashir vivas CALCIUM TOTAL BILIRUBIN TOTAL 2021-01-02 10:22:00 Joon, Bashir Easton ABORH 2021-01-02 10:22:00 Joon, Bashir Easton ANTIBODY SCREEN 2021-01-02 10:22:00 Joon, Bashir Easton GLUCOSE LEVEL 2021-01-02 10:22:00 Joon, Bashir Easton BLOOD UREA NITROGEN 2021-01-02 10:22:00 Joon, Bashir Villegas son ELECTROLYTE PANEL 2021-01-02 10:22:00 Joon, Bashir hadley SERUM CREATININE 2021-01-02 10:22:00 Joon, Bashir Easton .GLOMERULAR FILTRATION RATE 2021-01-02 10:22:00 Joon, Bashir Easton CALCIUM LEVEL TOTAL 2021-01-02 10:22:00 Joon, Bashir DUARTE Bakari son Results CBC 2021-01-02 10:22:00 Joon, Bashir Easton MANUAL DIFFERENTIAL 2021-01-02 10:22:00 Joon, Bashir DUARTE Bakari son CLOT EXPIRATION DATE 2021-01-02 10:22:00 Joon, Bashir Heart rstheodore COMPLETE BLOOD COUNT W/ 2021-01-01 10:45:00 Joon, Bashir gonzalez DIFFERENTIAL COMPREHENSIVE METABOLIC PANEL 2021-01-01 10:45:00 Joon, Bashir Easton LACTATE DEHYDROGENASE 2021-01-01 10:45:00 Joon, Bashir Norman PHOSPHORUS LEVEL 2021-01-01 10:45:00 Joon, Bsahir Easton MAGNESIUM LEVEL 2021-01-01 10:45:00 Joon, Bashir Easton URIC ACID 2021-01-01 10:45:00 Joon, Bashir Easton PROTHROMBIN TIME 2021-01-01 10:45:00 Joon, Bashir Easton PARTIAL THROMBOPLASTIN TIME 2021-01-01 10:45:00 Joon, Bashir Easton Results CBC 2021-01-01 10:45:00 Joon, Bashir Easton MANUAL DIFFERENTIAL 2021-01-01 10:45:00 Joon, Bashir akbar GLUCOSE LEVEL 2021-01-01 10:45:00 Joon, Bashir Easton BLOOD UREA NITROGEN 2021-01-01 10:45:00 Joon, Bashir akbar ELECTROLYTE PANEL 2021-01-01 10:45:00 Joon, Bashir hadley SERUM CREATININE 2021-01-01 10:45:00 Joon, Bashir Easton .GLOMERULAR FILTRATION RATE 2021-01-01 10:45:00 Joon, Bashir Easton CALCIUM LEVEL TOTAL 2021-01-01 10:45:00 Joon, Bashir akbar ALBUMIN LEVEL 2021-01-01 10:45:00 Joon, Bashir Easton ALKALINE PHOSPHATASE 2021-01-01 10:45:00 Joon, Bashir mathis ALANINE AMINOTRANSFERASE 2021-01-01 10:45:00 Joon, Bashir Easton ASPARTATE AMINOTRANSFERASE 2021-01-01 10:45:00 Joon, Bashir Easton TOTAL PROTEIN 2021-01-01 10:45:00 Joon, Bashir Easton FRACTIONATED BILIRUBIN 2021-01-01 10:45:00 Joon, Bashir vivas VRE CULTURE 2020-12-31 16:07:00 Joon, Bashir Easton COMPLETE BLOOD COUNT W/ 2020-12-31 06:45:00 Joon, Bashir Huerta nderson DIFFERENTIAL BASIC METABOLIC PANEL, 2020-12-31 06:45:00 Joon, Bashir vivas CALCIUM TOTAL BILIRUBIN TOTAL 2020-12-31 06:45:00 Joon, Bashir Easton GLUCOSE LEVEL 2020-12-31 06:45:00 Joon, Bashir Easton BLOOD UREA NITROGEN 2020-12-31 06:45:00 Joon, Bashir DUARTE Bakarimargarita akbar ELECTROLYTE PANEL 2020-12-31 06:45:00 Joon, Bashir hadley SERUM CREATININE 2020-12-31 06:45:00 Joon, Bashir Easton .GLOMERULAR FILTRATION RATE 2020-12-31 06:45:00 Joon, Bashir Easton CALCIUM LEVEL TOTAL 2020-12-31 06:45:00 Joon, Bashir DUARTE Bakari naomie Results CBC 2020-12-31 06:45:00 Joon, Bashir Easton MANUAL DIFFERENTIAL 2020-12-31 06:45:00 Joon, Bashir DUARTE Bakarimargarita akbar TYPE AND SCREEN 2020-12-30 11:05:00 Joon, Bashir Easton COMPLETE BLOOD COUNT W/ 2020-12-30 11:05:00 Joon, Bashir Huerta nderson DIFFERENTIAL COMPREHENSIVE METABOLIC PANEL 2020-12-30 11:05:00 Joon, Bashir Easton LACTATE DEHYDROGENASE 2020-12-30 11:05:00 Joon, Bashir Norman PHOSPHORUS LEVEL 2020-12-30 11:05:00 Joon, Bashir Easton MAGNESIUM LEVEL 2020-12-30 11:05:00 Joon, Bashir Easton URIC ACID 2020-12-30 11:05:00 Joon, Bashir Easton ABORH 2020-12-30 11:05:00 Joon, Bashir Easton ANTIBODY SCREEN 2020-12-30 11:05:00 Joon, Bashir Easton Results CBC 2020-12-30 11:05:00 Joon, Bashir Easton MANUAL DIFFERENTIAL 2020-12-30 11:05:00 Joon, Bashir akbar GLUCOSE LEVEL 2020-12-30 11:05:00 Joon, Bashir Easton BLOOD UREA NITROGEN 2020-12-30 11:05:00 Joon, Bashir DUARTE Bakarimargarita akbar ELECTROLYTE PANEL 2020-12-30 11:05:00 Joon, Bashir hadley SERUM CREATININE 2020-12-30 11:05:00 Joon, Bashir Easton .GLOMERULAR FILTRATION RATE 2020-12-30 11:05:00 Joon, Bashir Easton CALCIUM LEVEL TOTAL 2020-12-30 11:05:00 Joon, Bashir akbar ALBUMIN LEVEL 2020-12-30 11:05:00 Joon, Bashir Easton ALKALINE PHOSPHATASE 2020-12-30 11:05:00 Joon, Bashir mathis ALANINE AMINOTRANSFERASE 2020-12-30 11:05:00 Joon, Bashir Easton ASPARTATE AMINOTRANSFERASE 2020-12-30 11:05:00 Joon, Bashir Easton TOTAL PROTEIN 2020-12-30 11:05:00 Joon, Bashir Easton FRACTIONATED BILIRUBIN 2020-12-30 11:05:00 Joon, Bashir Santos derson CLOT EXPIRATION DATE 2020-12-30 11:05:00 Joon, Bashir mathis TMP INTERPRETATION ANTIBODY 2020-12-30 11:05:00 Joon, Bashir Easton SCREEN NEGATIVE COVID-19 (SARS-COV-2) 2020-12-29 20:11:00 Patel Baker MD And opal PCR-ASYMPTOMATIC MC COMPLETE BLOOD COUNT W/ 2020-12-29 06:33:00 Joon, Bashir lanrstheodore DIFFERENTIAL BASIC METABOLIC PANEL, 2020-12-29 06:33:00 Joon, Bashir vivas CALCIUM TOTAL BILIRUBIN TOTAL 2020-12-29 06:33:00 Joon, Bashir Easton GLUCOSE LEVEL 2020-12-29 06:33:00 Joon, Bashir Easton BLOOD UREA NITROGEN 2020-12-29 06:33:00 Joon, Bashir akbar ELECTROLYTE PANEL 2020-12-29 06:33:00 Joon, Bashir hadley SERUM CREATININE 2020-12-29 06:33:00 Joon, Bashir Easton .GLOMERULAR FILTRATION RATE 2020-12-29 06:33:00 Joon, Bashir Easton CALCIUM LEVEL TOTAL 2020-12-29 06:33:00 Joon, Bashir DUARTE Bakarimargarita akbar Results CBC 2020-12-29 06:33:00 Joon, Bashir Easton MANUAL DIFFERENTIAL 2020-12-29 06:33:00 Joon, Bashir akbar COMPLETE BLOOD COUNT W/ 2020-12-28 11:07:00 Joon, Bashir lanrson DIFFERENTIAL BASIC METABOLIC PANEL, 2020-12-28 11:07:00 Joon, Bashir vivas CALCIUM TOTAL BILIRUBIN TOTAL 2020-12-28 11:07:00 Joon, Bashir Easton GLUCOSE LEVEL 2020-12-28 11:07:00 Joon, Bashir Easton BLOOD UREA NITROGEN 2020-12-28 11:07:00 Joon, Bashir DUARTE Bakarimargarita akbar ELECTROLYTE PANEL 2020-12-28 11:07:00 Joon, Bashir hadley SERUM CREATININE 2020-12-28 11:07:00 Joon, Bashir Easton .GLOMERULAR FILTRATION RATE 2020-12-28 11:07:00 Joon, Bashir Easton CALCIUM LEVEL TOTAL 2020-12-28 11:07:00 Joon, Bashir DUARTE Bakarimargarita akbar Results CBC 2020-12-28 11:07:00 Joon, Bashir Easton MANUAL DIFFERENTIAL 2020-12-28 11:07:00 Joon, Bashir akbar TYPE AND SCREEN 2020-12-27 11:01:00 Joon, Bashir Easton COMPLETE BLOOD COUNT W/ 2020-12-27 11:01:00 Joon, Bashir Huerta nderson DIFFERENTIAL COMPREHENSIVE METABOLIC PANEL 2020-12-27 11:01:00 Joon, Bashir Easton LACTATE DEHYDROGENASE 2020-12-27 11:01:00 Joon, Bashir Norman PHOSPHORUS LEVEL 2020-12-27 11:01:00 Joon, Bashir Easton MAGNESIUM LEVEL 2020-12-27 11:01:00 Joon, Bashir Easton URIC ACID 2020-12-27 11:01:00 Joon, Bashir Easton ABORH 2020-12-27 11:01:00 Joon, Bashir Easton ANTIBODY SCREEN 2020-12-27 11:01:00 Joon, Bashir Easton Results CBC 2020-12-27 11:01:00 Joon, Bashir Easton MANUAL DIFFERENTIAL 2020-12-27 11:01:00 Joon, Bashir akbar GLUCOSE LEVEL 2020-12-27 11:01:00 Joon, Bashir Easton BLOOD UREA NITROGEN 2020-12-27 11:01:00 Joon, Bashir DUARTE Bakarimargarita akbar ELECTROLYTE PANEL 2020-12-27 11:01:00 Joon, Bashir hadley SERUM CREATININE 2020-12-27 11:01:00 Joon, Bashir Easton .GLOMERULAR FILTRATION RATE 2020-12-27 11:01:00 Joon, Bashir Easton CALCIUM LEVEL TOTAL 2020-12-27 11:01:00 Joon, Bashir akbar ALBUMIN LEVEL 2020-12-27 11:01:00 Joon, Bashir Easton ALKALINE PHOSPHATASE 2020-12-27 11:01:00 Joon, Bashir mathis ALANINE AMINOTRANSFERASE 2020-12-27 11:01:00 Joon, Bashir Easton ASPARTATE AMINOTRANSFERASE 2020-12-27 11:01:00 Joon, Bashir Easton TOTAL PROTEIN 2020-12-27 11:01:00 Joon, Bashir Easton FRACTIONATED BILIRUBIN 2020-12-27 11:01:00 Joon, Bashir Santos derson CLOT EXPIRATION DATE 2020-12-27 11:01:00 Joon, Bashir mathis TMP INTERPRETATION ANTIBODY 2020-12-27 11:01:00 Joon, Bashir Easton SCREEN NEGATIVE COMPLETE BLOOD COUNT W/ 2020-12-26 10:54:00 Joon, Bashir Huerta nderson DIFFERENTIAL BASIC METABOLIC PANEL, 2020-12-26 10:54:00 Joon, Bashir vivas CALCIUM TOTAL BILIRUBIN TOTAL 2020-12-26 10:54:00 Joon, Bashir Easton GLUCOSE LEVEL 2020-12-26 10:54:00 Joon, Bashir Easton BLOOD UREA NITROGEN 2020-12-26 10:54:00 Joon, Bashir akbar ELECTROLYTE PANEL 2020-12-26 10:54:00 Joon, Bashir hadley SERUM CREATININE 2020-12-26 10:54:00 Joon, Bashir Easton .GLOMERULAR FILTRATION RATE 2020-12-26 10:54:00 Joon, Bashir Easton CALCIUM LEVEL TOTAL 2020-12-26 10:54:00 Joon, Bashir akbar Results CBC 2020-12-26 10:54:00 Joon, Bashir Easton MANUAL DIFFERENTIAL 2020-12-26 10:54:00 Joon, Bashir akbar SERUM CREATININE 2020-12-25 10:53:00 Joon, Bashir Easton .GLOMERULAR FILTRATION RATE 2020-12-25 10:53:00 Joon, Bashir Easton CALCIUM LEVEL TOTAL 2020-12-25 10:53:00 Joon, Bashir akbar ALBUMIN LEVEL 2020-12-25 10:53:00 Joon, Bashir Easton ALKALINE PHOSPHATASE 2020-12-25 10:53:00 Joon, Bashir Heart rstheodore ALANINE AMINOTRANSFERASE 2020-12-25 10:53:00 Joon, Bashir Easton ASPARTATE AMINOTRANSFERASE 2020-12-25 10:53:00 Joon, Bashir Easton TOTAL PROTEIN 2020-12-25 10:53:00 Joon, Bashir Easton FRACTIONATED BILIRUBIN 2020-12-25 10:53:00 Joon, Bashir vivasson COMPLETE BLOOD COUNT W/ 2020-12-25 10:53:00 Joon, Bashir Huerta nderson DIFFERENTIAL COMPREHENSIVE METABOLIC PANEL 2020-12-25 10:53:00 Joon, Bashir Easton LACTATE DEHYDROGENASE 2020-12-25 10:53:00 Joon, Bashir Norman PHOSPHORUS LEVEL 2020-12-25 10:53:00 Joon, Bashir Easton MAGNESIUM LEVEL 2020-12-25 10:53:00 Joon, Bashir Easton URIC ACID 2020-12-25 10:53:00 Joon, Bashir Easton PROTHROMBIN TIME 2020-12-25 10:53:00 Joon, Bashir Easton PARTIAL THROMBOPLASTIN TIME 2020-12-25 10:53:00 Joon, Bashir Easton Results CBC 2020-12-25 10:53:00 Joon, Bashir Easton MANUAL DIFFERENTIAL 2020-12-25 10:53:00 Joon, Bashir akbar GLUCOSE LEVEL 2020-12-25 10:53:00 Joon, Bashir Easton BLOOD UREA NITROGEN 2020-12-25 10:53:00 Joon, Bashir akbar ELECTROLYTE PANEL 2020-12-25 10:53:00 Joon, Bashir hadley BUSULFAN THERAPEUTIC PRE DOSE 2020-12-24 11:00:00 Patel Baker MD BUSULFAN THERAPEUTIC 1 2020-12-24 11:00:00 Patel Baker MD NT PRO BNP 2020-12-24 10:02:00 Joon, Bashir Easton C REACTIVE PROTEIN 2020-12-24 10:02:00 Joon, Bashir Ibanez on FERRITIN LVL 2020-12-24 10:02:00 Joon, Bashir Easton TYPE AND SCREEN 2020-12-24 10:02:00 Joon, Bashir Easton COMPLETE BLOOD COUNT W/ 2020-12-24 10:02:00 Joon, Bashir gonzalez DIFFERENTIAL BASIC METABOLIC PANEL, 2020-12-24 10:02:00 Joon, Bashir vivas CALCIUM TOTAL BILIRUBIN TOTAL 2020-12-24 10:02:00 Joon, Bashir Easton ABORH 2020-12-24 10:02:00 Joon, Bashir Easton ANTIBODY SCREEN 2020-12-24 10:02:00 Joon, Bashir Easton GLUCOSE LEVEL 2020-12-24 10:02:00 Joon, Bashir Easton BLOOD UREA NITROGEN 2020-12-24 10:02:00 Joon, Bashir akbar ELECTROLYTE PANEL 2020-12-24 10:02:00 Joon, Bashir Slaughter n SERUM CREATININE 2020-12-24 10:02:00 Joon, Bashir Easton .GLOMERULAR FILTRATION RATE 2020-12-24 10:02:00 Joon, Bashir Easton CALCIUM LEVEL TOTAL 2020-12-24 10:02:00 Joon, Bashir DUARTE Bakari son Results CBC 2020-12-24 10:02:00 Joon, Bashir Easton MANUAL DIFFERENTIAL 2020-12-24 10:02:00 Joon, Bashir akbar CLOT EXPIRATION DATE 2020-12-24 10:02:00 Joon, Bashir Heart rstheodore TMP INTERPRETATION ANTIBODY 2020-12-24 10:02:00 Joon, Bashir Easton SCREEN NEGATIVE VRE CULTURE 2020-12-24 02:08:00 Joon, Bashir Easton COMPLETE BLOOD COUNT W/ 2020-12-23 13:07:00 Joon, Bashir gonzalez DIFFERENTIAL COMPREHENSIVE METABOLIC PANEL 2020-12-23 13:07:00 Joon, Bashir Easton LACTATE DEHYDROGENASE 2020-12-23 13:07:00 Joon, Bashir Norman MAGNESIUM LEVEL 2020-12-23 13:07:00 Joon, Bashir Easton PARTIAL THROMBOPLASTIN TIME 2020-12-23 13:07:00 Joon, Bashir Easton PHOSPHORUS LEVEL 2020-12-23 13:07:00 Joon, Bashir Easton PROTHROMBIN TIME 2020-12-23 13:07:00 Joon, Bashir Easton TYPE AND SCREEN 2020-12-23 13:07:00 Joon, Bashir Easton URIC ACID 2020-12-23 13:07:00 Joon, Bashir Easton URINALYSIS WITH MICROSCOPIC 2020-12-23 13:07:00 Joon, Bashir Easton IF INDICATED Results CBC 2020-12-23 13:07:00 Joon, Bashir Easton MANUAL DIFFERENTIAL 2020-12-23 13:07:00 Joon, Bashir akbar GLUCOSE LEVEL 2020-12-23 13:07:00 Joon, Bashir Easton BLOOD UREA NITROGEN 2020-12-23 13:07:00 Joon, Bashir akbar ELECTROLYTE PANEL 2020-12-23 13:07:00 Joon, Bashir hadley SERUM CREATININE 2020-12-23 13:07:00 Joon, Bashir Easton .GLOMERULAR FILTRATION RATE 2020-12-23 13:07:00 Joon, Bashir Easton CALCIUM LEVEL TOTAL 2020-12-23 13:07:00 Joon, Bashir akbar ALBUMIN LEVEL 2020-12-23 13:07:00 Joon, Bashir Easton ALKALINE PHOSPHATASE 2020-12-23 13:07:00 Joon, Bashir Heart rstheodore ALANINE AMINOTRANSFERASE 2020-12-23 13:07:00 Joon, Bashir Easton ASPARTATE AMINOTRANSFERASE 2020-12-23 13:07:00 Joon, Bashir Easton TOTAL PROTEIN 2020-12-23 13:07:00 Joon, Bashir Easton FRACTIONATED BILIRUBIN 2020-12-23 13:07:00 Joon, Bashir Santos derson ABORH 2020-12-23 13:07:00 Joon, Bashir Easton ANTIBODY SCREEN 2020-12-23 13:07:00 Bashir Dupree MD CLOT EXPIRATION DATE 2020-12-23 13:07:00 Bashir Dupree MD TMP INTERPRETATION ANTIBODY 2020-12-23 13:07:00 Bashir Dupree MD SCREEN NEGATIVE COVID-19 (SARS-COV-2) 2020-12-22 14:34:00 Brianne Lieberman MD PCR-ASYMPTOMATIC MC BUSULFAN PRE TEST DOSE 2020-12-19 13:35:00 Heriberto Moulton XR CHEST 2 VW POST IMPLANT 2020-12-18 19:33:07 Angie Ferguson MD O COMPLETE BLOOD COUNT W/ 2020-12-18 17:14:00 Bashir Dupree MDrstheodore DIFFERENTIAL COMPREHENSIVE METABOLIC PANEL 2020-12-18 17:14:00 Bashir Dupree MD MAGNESIUM LEVEL 2020-12-18 17:14:00 Bashir Dupree MD PARTIAL THROMBOPLASTIN TIME 2020-12-18 17:14:00 MD Rustam Goff TYPE AND SCREEN 2020-12-18 17:14:00 MD Bakari Moulton LACTATE DEHYDROGENASE 2020-12-18 17:14:00 MD Rustam Moulton PHOSPHORUS LEVEL 2020-12-18 17:14:00 MD Sly Moulton URINALYSIS MICROSCOPIC 2020-12-18 17:14:00 Heriberto Moulton URIC ACID 2020-12-18 17:14:00 MD Bakari Moulton PROTHROMBIN TIME 2020-12-18 17:14:00 MD Sly Moulton RESEARCH PROTOCOL [id number] 2020-12-18 17:14:00 Lazaro Garcia Results CBC 2020-12-18 17:14:00 Barney Rincon MD on MANUAL DIFFERENTIAL 2020-12-18 17:14:00 Barney Rincon MDson GLUCOSE LEVEL 2020-12-18 17:14:00 Barney Rincon MD on BLOOD UREA NITROGEN 2020-12-18 17:14:00 Barney Rincon MD ELECTROLYTE PANEL 2020-12-18 17:14:00 Barney Rincon MD rson SERUM CREATININE 2020-12-18 17:14:00 Barney Rincon MD Bakari son .GLOMERULAR FILTRATION RATE 2020-12-18 17:14:00 Barney Rincon MD CALCIUM LEVEL TOTAL 2020-12-18 17:14:00 Barney Rincon MD ALBUMIN LEVEL 2020-12-18 17:14:00 Barney Rincon MD on ALKALINE PHOSPHATASE 2020-12-18 17:14:00 Barney Rincon MD nderstheodore ALANINE AMINOTRANSFERASE 2020-12-18 17:14:00 Barney Rincon MD ASPARTATE AMINOTRANSFERASE 2020-12-18 17:14:00 Barney Rincon MD TOTAL PROTEIN 2020-12-18 17:14:00 Barney Rincon MD on FRACTIONATED BILIRUBIN 2020-12-18 17:14:00 Barney Rincon MD ABORH 2020-12-18 17:14:00 MD Bakari Moulton son Julia ANTIBODY SCREEN 2020-12-18 17:14:00 MD Bakari Moulton son Julia URINALYSIS WITH MICROSCOPIC 2020-12-18 17:14:00 Barney Rincon MD IF INDICATED CLOT EXPIRATION DATE 2020-12-18 17:14:00 MD Rustam Moulton TMP INTERPRETATION ANTIBODY 2020-12-18 17:14:00 MD Rustam Goff SCREEN NEGATIVE Julia ME REPLACE CV CATH, COMPLETE, 2020-12-18 17:00:00 Bradley Hartley MD NON-TUNNELED, W/O SUBQ PORT OR PUMP STERILITY BONE MARROW CULTURE 2020-12-17 17:57:00 Balbir Max MD HP FC BAG MINI FINAL REPORT 2020-12-17 17:57:00 Noa Max MD HP FC BAG MYELOMA FINAL 2020-12-17 17:57:00 Lilia Max MD REPORT COMPLETE BLOOD COUNT W/ 2020-12-17 12:28:00 Bashir Dupree MD DIFFERENTIAL COMPREHENSIVE METABOLIC PANEL 2020-12-17 12:28:00 Bashir Dupree MD MAGNESIUM LEVEL 2020-12-17 12:28:00 Bashir Dupree MD Results CBC 2020-12-17 12:28:00 Barney Rincon MD on MANUAL DIFFERENTIAL 2020-12-17 12:28:00 Barney Rincon MD GLUCOSE LEVEL 2020-12-17 12:28:00 Barney Rincon MD on ELECTROLYTE PANEL 2020-12-17 12:28:00 Barney Rincon MD rson SERUM CREATININE 2020-12-17 12:28:00 Barney Rincon MD Bakari son .GLOMERULAR FILTRATION RATE 2020-12-17 12:28:00 Barney Rincon MD CALCIUM LEVEL TOTAL 2020-12-17 12:28:00 Barney Rincon MD ALBUMIN LEVEL 2020-12-17 12:28:00 Barney Rincon MD on ALKALINE PHOSPHATASE 2020-12-17 12:28:00 Barney Rincon MD ALANINE AMINOTRANSFERASE 2020-12-17 12:28:00 Barney Rincon MD ASPARTATE AMINOTRANSFERASE 2020-12-17 12:28:00 Barney Rincon MD TOTAL PROTEIN 2020-12-17 12:28:00 Bareny Rincon MD on FRACTIONATED BILIRUBIN 2020-12-17 12:28:00 Barney Rincon MD BLOOD UREA NITROGEN 2020-12-17 12:28:00 Barney Rincon MD STERILITY BONE MARROW CULTURE 2020-12-16 16:47:00 Balbir Max MD HP FC BAG MINI FINAL REPORT 2020-12-16 16:47:00 Noa Max MD HP FC BAG MYELOMA FINAL 2020-12-16 16:47:00 Lilia Max MD REPORT DONOR INFECTIOUS DISEASE 2020-12-16 12:29:00 Bashir Dupree MD GROUPING CMV ANTIBODY IGG AND IGM 2020-12-16 12:29:00 Bashir Dupree MD CMV ANTIBODY IGG AND IGM PATH 2020-12-16 12:29:00 Bashir Dupree MD REVIEW COMPLETE BLOOD COUNT W/ 2020-12-16 12:29:00 Barney Rincon DIFFERENTIAL COMPREHENSIVE METABOLIC PANEL 2020-12-16 12:29:00 Augustine Rincon MD MAGNESIUM LEVEL 2020-12-16 12:29:00 Barney Rincon MD on TYPE AND SCREEN 2020-12-16 12:29:00 Barney Rincon MD on DONOR RAPID PLASMA REAGIN 2020-12-16 12:29:00 Bashir Dupree MD (RPR) Results CBC 2020-12-16 12:29:00 Barney Rincon MD on MANUAL DIFFERENTIAL 2020-12-16 12:29:00 Barney Rincon MD GLUCOSE LEVEL 2020-12-16 12:29:00 Barney Rincon MD on BLOOD UREA NITROGEN 2020-12-16 12:29:00 Barney Rincon MDson ELECTROLYTE PANEL 2020-12-16 12:29:00 Barney Rincon MD rson SERUM CREATININE 2020-12-16 12:29:00 Barney Rincon MD Bakari son .GLOMERULAR FILTRATION RATE 2020-12-16 12:29:00 Barney Rincon MD CALCIUM LEVEL TOTAL 2020-12-16 12:29:00 Barney Rincon MD ALBUMIN LEVEL 2020-12-16 12:29:00 Barney Rincon MD on ALKALINE PHOSPHATASE 2020-12-16 12:29:00 Barney Rincon MD nderson ABORH 2020-12-16 12:29:00 Barney Rincon MD on ALANINE AMINOTRANSFERASE 2020-12-16 12:29:00 Barney Rincon MD ANTIBODY SCREEN 2020-12-16 12:29:00 Barney Rincon MD on ASPARTATE AMINOTRANSFERASE 2020-12-16 12:29:00 Barney Rincon MD TOTAL PROTEIN 2020-12-16 12:29:00 Barney Rincon MD on FRACTIONATED BILIRUBIN 2020-12-16 12:29:00 Barney Rincon MD CLOT EXPIRATION DATE 2020-12-16 12:29:00 Barney Rincon MD nderson TMP INTERPRETATION ANTIBODY 2020-12-16 12:29:00 Barney Rincon MD SCREEN NEGATIVE TMP DONOR RPR PATH INTERP 2020-12-16 12:29:00 Bashir Dupree MD TMP DONOR RORO PATH INTERP 2020-12-16 12:29:00 Bashir Dupree MD TMP DONOR WNV PATH INTERP 2020-12-16 12:29:00 Bashir Dupree MD TMP DONOR ID PATH INTERP 2020-12-16 12:29:00 Bashir Dupree MD COMPLETE BLOOD COUNT W/ 2020-12-15 23:11:00 Chrystal Maier MD DIFFERENTIAL Results CBC 2020-12-15 23:11:00 Chrystal Maier MD Anderso n MANUAL DIFFERENTIAL 2020-12-15 23:11:00 Chrystal Maier MD And erson COVID-19 (SARS-COV-2) 2020-12-06 19:28:00 Renata Kim MD PCR-ASYMPTOMATIC MC XR CHEST 2 VW POST IMPLANT 2020-12-06 18:39:39 Shun Mckinney MD VASCULAR ACCESS ULTRASOUND 2020-12-06 16:49:51 Dedra Voss MD VASCULAR ACCESS ULTRASOUND 2020-12-06 16:01:50 Shun Mckinney MD ME INSERT NON-TUNNEL CV CATH 2020-12-06 15:20:00 MD Rustam Álvarez ME CHG US GUIDE, VASCULAR 2020-12-06 15:20:00 MD Rustam Moulton ACCESS Julia COMPLETE BLOOD COUNT W/ 2020-12-06 14:53:00 MD Rustam Moulton DIFFERENTIAL Julia PARTIAL THROMBOPLASTIN TIME 2020-12-06 14:53:00 MD Rustam Goff PROTHROMBIN TIME 2020-12-06 14:53:00 MD Sly Moulton Results CBC 2020-12-06 14:53:00 Enma Toro MD Bakarimargarita Dumont MANUAL DIFFERENTIAL 2020-12-06 14:53:[address] SINUS WO CONTRAST 2020-12-06 14:30:00 MD Rustam Moulton MRI ABDOMEN W WO CONTRAST 2020-12-05 21:42:00 MD Rustam Moulton XR BONE SURVEY COMPLETE 2020-12-05 19:43:04 MD Rustam Moulton COMPREHENSIVE METABOLIC PANEL 2020-12-04 19:38:00 MD Rustam Gonzalez GLUCOSE LEVEL 2020-12-04 19:38:00 MD Bakari Moulton ELECTROLYTE PANEL 2020-12-04 19:38:00 Enma Toro MD And opal Dumont SERUM CREATININE 2020-12-04 19:38:00 MD Sly Moulton .GLOMERULAR FILTRATION RATE 2020-12-04 19:38:00 MD Rustam Goff CALCIUM LEVEL TOTAL 2020-12-04 19:38:00 MD Bradley Moulton ALBUMIN LEVEL 2020-12-04 19:38:00 MD Bakari Moulton ALKALINE PHOSPHATASE 2020-12-04 19:38:00 MD Rustam Moulton ALANINE AMINOTRANSFERASE 2020-12-04 19:38:00 MD Rustam Moulton ASPARTATE AMINOTRANSFERASE 2020-12-04 19:38:00 MD Rustam Oliveria TOTAL PROTEIN 2020-12-04 19:38:00 MD Bakari Moulton FRACTIONATED BILIRUBIN 2020-12-04 19:38:00 Heriberto Moulton BLOOD UREA NITROGEN 2020-12-04 19:38:00 MD Bradley Moulton AMB PATIENT NEEDS REFERRAL TO 2020-12-04 17:49:45 Bashir Dupree MD SPIRITUAL CARE US LIVER DOPPLER 2020-12-04 16:07:33 MD Sly Moulton US ABDOMEN COMPLETE 2020-12-04 16:07:33 MD Bradley Moulton XR CHEST 2 VW 2020-12-04 14:38:36 MD Bakari Moulton Jluia PROTEIN ELECTROPHORESIS URINE 2020-12-04 14:30:00 MD Rustam Gonzalez IMMUNOFIXATION 2020-12-04 14:30:00 MD Bakari Moulton son ELECTROPHORESIS URINE Julia URINE TOTAL PROTEIN 2020-12-04 14:30:00 MD Bradley Moulton .TOTAL VOLUME 2020-12-04 14:30:00 MD Bakari Moulton EKG, 12-LEAD (SCHEDULED) 2020-12-04 00:00:00 MD Rustam Moulton DONOR INFECTIOUS DISEASE 2020-12-02 18:41:00 MD Rustam Moulton GROUPING Julia CMV ANTIBODY IGG AND IGM 2020-12-02 18:41:00 MD Rustam Moulton CMV ANTIBODY IGG AND IGM PATH 2020-12-02 18:41:00 MD Rustam Gonzalez REVIEW Julia COMPLETE BLOOD COUNT W/ 2020-12-02 18:41:00 MD Rustam Moulton DIFFERENTIAL Julia LACTATE DEHYDROGENASE 2020-12-02 18:41:00 MD Rustam Moulton MAGNESIUM LEVEL 2020-12-02 18:41:00 MD Bakari Moulton PARTIAL THROMBOPLASTIN TIME 2020-12-02 18:41:00 MD Rustam Goff PHOSPHORUS LEVEL 2020-12-02 18:41:00 MD Sly Moulton PROTHROMBIN TIME 2020-12-02 18:41:00 Enma Toro MD Sly rson Julia TYPE AND SCREEN 2020-12-02 18:41:00 Enma Toro MD Bakarimargarita Dumont URIC ACID 2020-12-02 18:41:00 Enma Toro MD Bakarimargarita Dumont URINALYSIS WITH MICROSCOPIC 2020-12-02 18:41:00 MD Rustam Goff IF INDICATED Julia BETA 2 MICROGLOBULIN 2020-12-02 18:41:00 MD Rustam Moulton C REACTIVE PROTEIN 2020-12-02 18:41:00 MD Fern Moultonson Julia FREE KAPPA LIGHT CHAIN 2020-12-02 18:41:00 Heriberto Moulton VITAMIN D 25 HYDROXY LEVEL 2020-12-02 18:41:00 MD Rustam Oliveira Julia PROTEIN ELECTROPHORESIS, 2020-12-02 18:41:00 MD Rustam Moulton SERUM Julia NT PRO BNP 2020-12-02 18:41:00 Enma Toro MD Bakarimargarita Dumont IMMUNOGLOBULIN M SERUM 2020-12-02 18:41:00 Heriberto Moulton Jluia IMMUNOFIXATION 2020-12-02 18:41:00 MD Bakari Moulton [facility] ELECTROPHORESIS Julia Results CBC 2020-12-02 18:41:00 Enma Toro MD Bakari son Julia MANUAL DIFFERENTIAL 2020-12-02 18:41:00 MD Bradley Moulton nderson Julia ABORH 2020-12-02 18:41:00 Enma Toro MD Bakarimargarita akbar Julia ANTIBODY SCREEN 2020-12-02 18:41:00 MD Bakari Moulton DONOR RAPID PLASMA REAGIN 2020-12-02 18:41:00 MD Rustam Moulton (RPR) Julia URINALYSIS MICROSCOPIC 2020-12-02 18:41:00 Heriberto Moulton FREE KAPPA/FREE LAMBDA RATIO 2020-12-02 18:41:00 MD Rustam Álvarez TMP INTERPRETATION ANTIBODY 2020-12-02 18:41:00 MD Rustam Goff SCREEN NEGATIVE Julia CLOT EXPIRATION DATE 2020-12-02 18:41:00 MD Rustam Moulton TMP DONOR RPR PATH INTERP 2020-12-02 18:41:00 MD Rustam Moulton TMP DONOR RORO PATH INTERP 2020-12-02 18:41:00 MD Rustam Moulton TMP DONOR WNV PATH INTERP 2020-12-02 18:41:00 MD Rustam Moulton TMP DONOR ID PATH INTERP 2020-12-02 18:41:00 MD Rustam Moulton HEMATOPATHOLOGY BONE MARROW 2020-10-29 21:03:00 Gustavo Wick MD INTERPRETATION HEMATOPATHOLOGY BONE MARROW 2020-10-29 21:03:00 Gustavo Wick MD DIFFERENTIAL HP FC FLOW CYTOMETRY BLOOD 2020-10-29 20:58:00 Teri Manzano MD COLLECTION HP CYTOGENETICS BLOOD 2020-10-29 20:58:00 [facility] HP CG CHROMOSOME ANALYSIS 2020-10-29 20:58:00 Teri Manzano FINAL REPORT HP CG [id number] FISH FINAL 2020-10-29 20:58:00 Teri Manzano MD REPORT HP FC WALDENSTROM FINAL 2020-10-29 20:58:00 Teri Manzano MD REPORT ME DIAGNOSTIC BONE MARROW 2020-10-29 20:00:00 Teri Manzano BIOPSIES & ASPIRATIONS COMPLETE BLOOD COUNT W/ 2020-10-29 19:35:00 Teri Manzano MD DIFFERENTIAL Results CBC 2020-10-29 19:35:00 Teri Manzano MD MANUAL DIFFERENTIAL 2020-10-29 19:35:00 Teri Manzanoe rson PROTEIN ELECTROPHORESIS URINE 2020-10-29 19:00:00 Deanna Manzano MD IMMUNOFIXATION 2020-10-29 19:00:00 Teri Manzano MD ELECTROPHORESIS URINE URINE TOTAL PROTEIN 2020-10-29 19:00:00 Teri Manzano MD Sly rson .TOTAL VOLUME 2020-10-29 19:00:00 Teri Manzano MD .DR ORDAZ UIFE PATH REVIEW 2020-10-29 19:00:00 Teri Manzano MD .DR. MOFFETT U PROT ELEC PATH 2020-10-29 19:00:00 Teri Manzano MD REVIEW CONFIRM ABORH TYPE 2020-10-24 18:05:00 Teri Manzano MD Bakari son COMPLETE BLOOD COUNT W/ 2020-10-24 18:03:00 Teri Manzano MD DIFFERENTIAL PROTHROMBIN TIME 2020-10-24 18:03:00 Teri Manzano MD n PARTIAL THROMBOPLASTIN TIME 2020-10-24 18:03:00 Teri Manzano MD TYPE AND SCREEN 2020-10-24 18:03:00 Teri Manzano MD COMPREHENSIVE METABOLIC PANEL 2020-10-24 18:03:00 Deanna Manzano MD MAGNESIUM LEVEL 2020-10-24 18:03:00 Teri Manzano MD PHOSPHORUS LEVEL 2020-10-24 18:03:00 Teri Manzano MD URIC ACID 2020-10-24 18:03:00 Teri Manzano MD IMMUNOGLOBULIN A SERUM 2020-10-24 18:03:00 Teri Manzano MDon FREE KAPPA LIGHT CHAIN 2020-10-24 18:03:00 Teri Manzano MD nderson PROTEIN ELECTROPHORESIS, 2020-10-24 18:03:00 Teri Manzano MD SERUM IMMUNOFIXATION 2020-10-24 18:03:00 Teri Manzano MD ELECTROPHORESIS BETA 2 MICROGLOBULIN 2020-10-24 18:03:00 Teri Manzano MD And erson LACTATE DEHYDROGENASE 2020-10-24 18:03:00 Teri Manzano MD derson HEPATITIS B CORE ANTIBODY 2020-10-24 18:03:00 Teri Manzano HEPATITIS B SURFACE ANTIGEN, 2020-10-24 18:03:00 Naomi Manzano SERUM HEPATITIS C VIRUS ANTIBODY 2020-10-24 18:03:00 Teri Manzano MD HC HIV 1/2 AG AND AB 4TH GEN 2020-10-24 18:03:00 Naomi Manzano IRON LEVEL 2020-10-24 18:03:00 Teri Manzano MD FERRITIN LVL 2020-10-24 18:03:00 Teri Manzano MD TRANSFERRIN 2020-10-24 18:03:00 Teri Manzano MD RETICULOCYTE COUNT AUTOMATED 2020-10-24 18:03:00 Naomi Manzano VITAMIN B12 LEVEL 2020-10-24 18:03:00 Teri Manzano MD on FOLATE LEVEL 2020-10-24 18:03:00 Teri Manzano MD Results CBC 2020-10-24 18:03:00 Teri Manzano MD MANUAL DIFFERENTIAL 2020-10-24 18:03:00 Teri Manzano MD Sly rstheodore GLUCOSE LEVEL 2020-10-24 18:03:00 Teri Manzano MD BLOOD UREA NITROGEN 2020-10-24 18:03:00 Teri Manzano MD Sly rstheodore ELECTROLYTE PANEL 2020-10-24 18:03:00 Teri Manzano MD on SERUM CREATININE 2020-10-24 18:03:00 Teri Manzano MDo jomar SongGLOMERULAR FILTRATION RATE 2020-10-24 18:03:00 Teri Manzano MD CALCIUM LEVEL TOTAL 2020-10-24 18:03:00 Teri Manzano MD Sly rson ALBUMIN LEVEL 2020-10-24 18:03:00 Teri Manzano MD ALKALINE PHOSPHATASE 2020-10-24 18:03:00 Teri Manzano MD And erson ALANINE AMINOTRANSFERASE 2020-10-24 18:03:00 Teri Manzano MD ASPARTATE AMINOTRANSFERASE 2020-10-24 18:03:00 Teri Manzano MD TOTAL PROTEIN 2020-10-24 18:03:00 Teri Manzano MD FRACTIONATED BILIRUBIN 2020-10-24 18:03:00 Teri Manzano MD nderson ABORH 2020-10-24 18:03:00 Teri Manzano MD ANTIBODY SCREEN 2020-10-24 18:03:00 Teri Manzano MD HC REF HEPATITIS BC AB, IGG & 2020-10-24 18:03:00 Deanna Manzano MD IGM HEPATITIS B SURFACE AG 2020-10-24 18:03:00 Teri Manzano MD nderson W/CONFIRM HEPATITIS C VIRUS AB SCREEN 2020-10-24 18:03:00 Teri Manzano MD W/REFLEX HCV PCR FREE KAPPA/FREE LAMBDA RATIO 2020-10-24 18:03:00 Naomi Manzano CLOT EXPIRATION DATE 2020-10-24 18:03:00 Teri Manzano MD And erson TMP INTERPRETATION ANTIBODY 2020-10-24 18:03:00 Teri Manzano MD SCREEN NEGATIVE TMP HIV 1/2 AG&AB PATH INTERP 2020-10-24 18:03:00 Deanna Manzano MD .DR. BETINA JEFFERSON PATH REVIEW 2020-10-24 18:03:00 Teri Manzano MD HC 2019-NCOV COVID-19 2020-10-22 17:27:00 Gustavo Wick MD Plan of Care Planned Activity Planned Date Details Comments Source Encounters Start End Encounter Admission Attending Care Care Encounter Source Date/Time Date/Time Type Type Clinicians Facility Department ID 2021-02-21 Outpatient SYSTEM, MDA MDA [id number] 15:11:39 PROVIDER Shamar o n 2020-12-04 Outpatient MDA MDA [id number] 23:04:47 Anderso n 2020-11-13 Outpatient SYSTEM, MDA MDA [id number] 10:30:52 PROVIDER Shamar o n 2020-09-25 Outpatient SYSTEM, MDA MDA [id number] 08:50:20 PROVIDER Shamar o n 2021-02-12 2021-02-12 Outpatient [facility], MDA MDA [id number] 07:45:00 23:59:00 RENATA hadley 2021-02-12 2021-02-12 Outpatient EL JOON, MDA MDA [id number] 08:57:12 11:16:44 BASHIR hadley 2021-02-02 2021-02-10 Inpatient ER LOVE, MDA Transplant [id number] 11:50:00 16:52:00 DEREK hadley 2021-02-09 2021-02-09 Inpatient EL RAMDINAMAN, MDA MDA [id number] 08:26:48 08:36:24 RAO hadley 2021-02-08 2021-02-08 Inpatient EL RAMDIAL, MDA MDA [id number] 10:57:56 11:18:38 RAO hadley 2021-02-07 2021-02-07 Inpatient EL RAMDINAMAN, MDA MDA [id number] 07:40:00 09:19:17 RAO hadley 2021-02-06 2021-02-06 Inpatient EL ADIN, MDA MDA [id number] 12:45:46 13:12:44 RAO hadley 2021-02-03 2021-02-03 Outpatient EL DEREJE, MDA MDA [id number] 11:30:00 23:59:00 NASIM hadley 2021-02-02 2021-02-02 Inpatient PAULA SUÁREZ, MDA MDA [id number] 16:30:22 16:53:32 PACHECO hadley 2021-01-27 2021-01-27 Outpatient EL JJ, MDA MDA [id number] 08:13:32 23:59:00 ESDRAS hadley 2021-01-27 2021-01-27 Outpatient EL NORWOOD MDA MDA [id number] 08:33:30 09:52:31 Fern TORO 2021-01-23 2021-01-23 Outpatient PAULA GALLEGOS, MDA MDA [id number] 09:40:11 23:59:00 LAURA hadley 2021-01-23 2021-01-23 Outpatient EL, MDA MDA [id number] MD 09:00:00 09:39:00 LAURA Ibanez o jomar 2021-01-20 2021-01-20 Outpatient PAULA GALLEGOS, MDA MDA [id number] 09:37:47 23:59:00 LAURA hadley 2021-01-20 2021-01-20 Outpatient PAULA RINCON, MDA MDA [id number] 08:10:17 09:36:00 BARNEY hadley 2021-01-20 2021-01-20 Outpatient PAULA RINCON, MDA MDA [id number] 07:00:00 08:09:00 BARNEY hadley 2021-01-17 2021-01-17 Outpatient PAULA MAIER, MDA MDA [id number] 08:25:21 23:59:00 CHRYSTAL hadley 2021-01-17 2021-01-17 Outpatient PAULA MAIER, MDA MDA [id number] 07:30:00 08:24:00 CHRYSTAL hadley 2020-12-23 2021-01-16 Inpatient ROMA KOCH MDA Transplant [id number] 13:28:00 15:00:00 Shamar hadley 2021-01-15 2021-01-15 Inpatient ROMA KOCH MDA MDA [id number] 16:03:59 16:21:11 Shamar o jomar 2021-01-15 2021-01-15 Inpatient PAULA MCNEILL, MDA MDA [id number] MD 13:28:15 13:58:59 KRISTYN hadley 2021-01-07 2021-01-07 Inpatient ROMA KOCH MDA MDA [id number] MD 15:53:25 15:53:29 Shamar o jomar 2020-12-31 2020-12-31 Outpatient PAULA MAX, MDA MDA [id number] 16:16:00 23:59:00 LILIA hadley 2020-12-24 2020-12-24 Inpatient PAULA DUPREE, MDA MDA [id number] MD 03:53:09 04:00:27 BASHIR Ibanez o jomar 2020-12-23 2020-12-23 Outpatient PAULA DUPREE, MDA MDA [id number] 07:49:45 09:53:28 BASHIR hadley 2020-12-23 2020-12-23 Outpatient EL SHAMIKA, MDA MDA [id number] 07:48:37 08:38:27 GUSTAVO hadley 2020-12-23 2020-12-23 Outpatient EL JANETTE, MDA MDA [id number] 07:40:00 07:40:00 BUTCH hadley 2020-12-23 2020-12-23 Outpatient EL SHAMIKA, MDA MDA [id number] 07:22:00 07:39:00 GUSTAVO hadley 2020-12-23 2020-12-23 Outpatient EL JOON, MDA MDA [id number] 06:30:00 07:21:00 BASHIR hadley 2020-12-22 2020-12-22 Outpatient ENMA MDA MDA [id number] 08:29:00 09:03:46 Fern TORO 2020-12-19 2020-12-19 Outpatient NORWOOD MDA MDA [id number] 06:47:13 23:59:00 Fern TORO 2020-12-18 2020-12-18 Outpatient EL EVENSWESTFALL MDA MDA [id number] 13:15:00 23:59:00 Srinivas 2020-12-18 2020-12-18 Outpatient JOON, MDA MDA [id number] 13:52:44 15:54:24 BASHIR hadley 2020-12-18 2020-12-18 Outpatient EL SHAMIKA, MDA MDA [id number] 13:52:08 14:53:27 GUSTAVO hadley 2020-12-18 2020-12-18 Outpatient EL NAEEM MDA MDA [id number] 10:58:46 13:14:00 LIZZ 2020-12-18 2020-12-18 Outpatient SERGEY, MDA MDA [id number] 10:00:00 10:57:00 BARNEY hadley 2020-12-18 2020-12-18 Outpatient EL SERGEY, MDA MDA [id number] 07:45:00 09:59:00 BARNEY hadley 2020-12-17 2020-12-17 Outpatient PAULA SALGADO, MDA MDA [id number] 11:50:00 23:59:00 KATHY hadley 2020-12-17 2020-12-17 Outpatient PAULA RINCON, MDA MDA [id number] 07:18:41 11:49:00 BARNEY hadley 2020-12-17 2020-12-17 Outpatient PAULA RINCON, MDA MDA [id number] 06:14:26 07:17:00 BARNEY hadley 2020-12-16 2020-12-16 Outpatient PAULA RINCON, MDA MDA [id number] 19:07:50 23:59:00 BARNEY hadley 2020-12-16 2020-12-16 Outpatient PAULA SALGADO, MDA MDA [id number] 11:26:00 19:06:00 KATHY hadley 2020-12-16 2020-12-16 Outpatient SERGEY, MDA MDA [id number] 07:33:23 11:25:00 BARNEY hadley 2020-12-16 2020-12-16 Outpatient PAULA GENAOOUR, MDA MDA [id number] 06:00:00 07:32:00 BASHIR hadley 2020-12-15 2020-12-15 Outpatient PAULA RINCON, MDA MDA [id number] 18:55:49 23:59:00 BARNEY hadley 2020-12-15 2020-12-15 Outpatient DARRION, MDA MDA [id number] 14:00:00 18:54:00 CHRYSTAL hadley 2020-12-14 2020-12-14 Outpatient [facility] MDA MDA [id number] 10:00:00 23:59:00 LIZZ 2020-12-13 2020-12-13 Outpatient [facility], MDA MDA [id number] 10:00:00 23:59:00 CHRYSTAL hadley 2020-12-12 2020-12-12 Outpatient [facility], MDA MDA [id number] 10:00:00 23:59:00 CHRYSTAL hadley 2020-12-06 2020-12-06 Outpatient HANK, MDA MDA [id number] 12:15:00 23:59:00 LIAT hadley 2020-12-06 2020-12-06 Outpatient SHAMIKA, MDA MDA [id number] 13:20:44 14:22:58 GUSTAVO hadley 2020-12-06 2020-12-06 Outpatient [facility] MDA MDA [id number] 11:00:00 12:14:00 , LIZZ hadley 2020-12-06 2020-12-06 Outpatient [facility] MDA MDA [id number] 08:59:48 10:59:00 Fern TORO 2020-12-06 2020-12-06 Outpatient [facility] MDA MDA [id number] 10:49:51 10:49:51 DEDRA hadley 2020-12-06 2020-12-06 Outpatient HANK, MDA MDA [id number] 10:01:49 10:01:49 LIAT hadley 2020-12-06 2020-12-06 Outpatient [facility] MDA MDA [id number] MD 08:00:00 08:58:00 Fern TORO 2020-12-06 2020-12-06 Outpatient [facility] MDA MDA [id number] MD 07:52:59 07:52:59 Fern TORO 2020-12-05 2020-12-05 Outpatient [facility] MDA MDA [id number] MD 12:52:19 23:59:00 Fern TOROso JULIA hadley 2020-12-05 2020-12-05 Outpatient [facility] MDA MDA [id number] MD 13:46:42 13:46:42 Fern TORO 2020-12-04 2020-12-04 Outpatient [facility] MDA MDA [id number] 12:30:00 23:59:00 Fern TORO 2020-12-04 2020-12-04 Outpatient SHAMIKA, MDA MDA [id number] 13:39:22 13:40:25 GUSTAVO hadley 2020-12-04 2020-12-04 Outpatient PAULA DUPREE, MDA MDA [id number] MD 10:56:50 13:27:06 BASHIR hadley 2020-12-04 2020-12-04 Outpatient NORWOOD MDA MDA [id number] MD 10:20:05 12:29:00 Fern TORO 2020-12-04 2020-12-04 Outpatient SHAMIKA, MDA MDA [id number] MD 10:54:22 11:45:18 GUSTAVO hadley 2020-12-04 2020-12-04 Outpatient [facility] MDA MDA [id number] 08:15:00 10:19:00 Fern TORO 2020-12-04 2020-12-04 Outpatient SHAMIKA, MDA MDA [id number] 08:54:48 08:54:48 GUSTAVO hadley 2020-12-04 2020-12-04 Outpatient [facility] MDA MDA [id number] MD 08:45:51 08:45:51 Fern TORO katy JULIA hadley 2020-12-02 2020-12-02 Outpatient [facility] MDA MDA [id number] MD 12:28:01 23:59:00 Fern TORO 2020-11-27 2020-11-27 Outpatient [facility] MDA MDA [id number] MD 11:25:51 13:02:02 Fern TORO 2020-11-14 2020-11-14 Outpatient SHAMIKA, MDA MDA [id number] MD 17:13:43 18:00:03 GUSTAVO hadley 2020-11-13 2020-11-13 Outpatient HSAMIKA, MDA MDA [id number] MD 09:08:09 12:04:09 GUSTAVO hadley 2020-11-13 2020-11-13 Outpatient JOON, MDA MDA [id number] 09:07:33 11:11:05 BASHIR hadley 2020-11-13 2020-11-13 Outpatient PAULA WICK MDA MDA [id number] 09:07:48 09:07:48 GUSTAVO hadley 2020-10-29 2020-10-29 Outpatient PAULA MANZANO MDA MDA [id number] 13:42:50 23:59:00 TERI hadley 2020-10-29 2020-10-29 Outpatient PAULA MANZANO MDA MDA [id number] 13:25:37 13:41:00 TERI hadley 2020-10-24 2020-10-24 Outpatient PAULA MANZANO MDA MDA [id number] 11:43:22 23:59:00 TERI hadley 2020-10-24 2020-10-24 Outpatient PAULA WICK MDA MDA [id number] 09:31:06 11:33:47 GUSTAVO hadley 2020-10-24 2020-10-24 Outpatient ASTRID MDA [id number] 09:27:08 09:27:26 Shamar hadley 2020-10-22 2020-10-22 Outpatient PAULA WICK MDA MDA [id number] 11:15:44 11:41:13 GUSTAVO hadley 2020-10-22 2020-10-22 Outpatient PAULA WICK MDA MDA [id number] 09:05:30 09:05:30 GUSTAVO hadley 2020-10-22 2020-10-22 Outpatient PAULA WICK MDA MDA [id number] 09:05:27 09:05:27 GUSTAVO hadley 2020-10-22 2020-10-22 Outpatient PAULA WICK MDA MDA [id number] 09:05:24 09:05:24 GUSTAVO hadley 2019-08-18 2019-08-18 Outpatient Pant, MHPL MHPL [id number] 09:33:00 23:59:00 Cassie 00 Sonja 2019-08-18 2019-08-18 Outpatient MHBL MHBL [id number] 09:33:00 09:33:00 Results Test Description Test Time Test Comments Results Result Comments Source Blood Culture- Peripheral 2021-02-13 17:15:24 Test Item Value Reference Range Interpretation Comme nts Final Report (test code = 8488) No growth Path Review - Bottle/Isolator (test Culture yield may be affected b y sample code = 8499) quality, prior treatment, and transportation conditions....The results have been reviewed and electronically signed by Pathologist:Jalen Milton MD, PhD #[id number] MD EastonTMP Interpretation Manual Antibody Screen Tnqbihvh2073-79-06 15:19:10 Test Item Value Reference Range Interpretation Comments TMP Neg ABSC At the present Interp (test time, patient code = 7558) plasma shows no ____BRISEYDA DICKSON MD - evidence of RBC 18222Erusdcd d by: alloantibodies. BRISEYDA KINCAID MD - [id number] D ate/Time: 02.13.2021 10:1 9 AM CDT Transcribed Da te/Time: 02.13.2021 10:1 9 AM CDTElectronical ly Signed By: BRISEYDA BAI MD - [id number] on 02.13 10:19 AM MD EastonAntibody Screen [id number] 19:23:10 Test Item Value Reference Range Interpretation Comments ABSC Interp (test code = 890-4) Negative ABSC MD EastonDzbqaymwOMKPe5951-71-84 17:21:56 Test Item Value Reference Range Interpretation Comments ABORh. (test code = 882-1) O POS MD EastonClot Expiration [id number] 17:21:33 Test Item Value Reference Range Interpretation Comments T & S Expiration (test code = 02/15/2021 5318) MD EastonFractionated Hnnfpzpbe8316-42-70 14:51:42 Test Item Value Reference Range Interpretation Comments Bili Total (test code 1.5 mg/dL See_Comment H Indocy anine Green = 5096) (ICG) may cause falsely elevate d bilirubin resul ts. Total and direc t bilirubin must not be measured from s amples containing indo cyanine green. False el evation of total biliru bin can be seen in jagjit ents with IgG concentrations above 28 g/L. [Autom ated message] The sy stem which generated this result transmit rosalino reference range : <=1.2. The refe rence range was not u sed to interpret this result as normal/abnor mal. Bili Direct (test code 0.7 mg/dL See_Comment H Indoc yanine Green = 5094) (ICG) may cause falsely elevate d bilirubin resul ts. Total and direc t bilirubin must not be measured from s amples containing indo cyanine green. [Automat ed message] The sy stem which generated this result transmit rosalino reference range : <=0.3. The refe rence range was not u sed to interpret this result as normal/abnor mal. Bili Indirect (test 0.8 mg/dL 0-0.9 code = 5095) Lab Interpretation Abnormal (test code = 83330-6) MD EastonUric [id number] 14:51:41 Test Item Value Reference Range Interpretation Comments Uric Acid (test code = 7955) 5.6 mg/dL 3.4-7 MD EastonTotal Tdioama1516-29-79 14:51:40 Test Item Value Reference Range Interpretation Comments Total Protein (test code = 7649) 6.5 g/dL 6.4-8.3 MD EastonPhosphorus [id number] 14:51:39 Test Item Value Reference Range Interpretation Comments Phosphorus (test code = 6817) 4.2 mg/dL 2.5-4.5 MD EastonCalcium Eotyo0331-65-91 14:51:38 Test Item Value Reference Range Interpretation Comments Calcium Lvl (test code = 5258) 9.3 mg/dL 8.4-10.2 MD EastonKlmqhrtwYVD5128-84-11 14:51:37 Test Item Value Reference Range Interpretation Comments ALT (test code = 4705) 81 U/L See_Comment H [Aut omated message] The system [employer] generated this result transmitted ref erence range: <=41. Th e reference range was not used to int erpret this result as normal/abnormal . Lab Interpretation (test Abnormal code = 29033-6) MD EastonElectrolyte Tudzz7506-72-00 14:51:36 Test Item Value Reference Range Interpretation Comments Sodium Lvl (test code = 141 See_Comment [Au tomated message] The 7326) system which ge nerated this result tra nsmitted reference range : 136 - 145 mEq/L. The reference range was not u sed to interpret this result as normal/abnormal . Potassium Lvl (test 5.1 See_Comment [Automa rosalino message] The code = 6854) system which ge nerated this result tra nsmitted reference range : 3.5 - 5.1 mEq/L. The reference range was not u sed to interpret this result as normal/abnormal . Chloride (test code = 103 See_Comment [Auto mated message] The 5279) system which ge nerated this result tra nsmitted reference range : 98 - 107 mEq/L. The refe rence range was not u sed to interpret this result as normal/abnormal . CO2 (test code = 5227) 28 See_Comment [Aut omated message] The system which ge nerated this result tra nsmitted reference range : 22 - 29 mEq/L. The refe rence range was not u sed to interpret this result as normal/abnormal . Anion Gap (test code = 10 See_Comment [Aut omated message] The 9325) system which ge nerated this result tra nsmitted reference range : 4 - 14 mEq/L. The refe rence range was not u sed to interpret this result as normal/abnormal . MD EastonKtnzrkmpEHX2452-13-96 14:51:34 Test Item Value Reference Range Interpretation Comments BUN (test code = 5055) 22 mg/dL 6-23 MD EastonGlomerular Filtration [id number] 14:51:33 Test Item Value Reference Range Interpretation Comments eGFR-AA (test code 118 See_Comment Normal eG FR: >= 60 = 8062) mL/min/1.73 m2N ote: The eGFR is calculated u sing the CKD-EPI equatio n. The eGFR declines with a ge. eGFR <60 mL/min/1.73 m2 is considered as "decreased". This equation should only be used for patients 18 and older. According to e National Kidney [employer] on's Kidney Disease Outcome Quality Initiative (KDO QI) classification and 2012 Kidney Disease Improving Global Outcomes (KDIGO) Clinical Practi ce Guideline, the stage of CK D should be categorized bas ed on estimated GFR. Stage Description GFR mL/min/1.73 m21 Normal or high GFR >=902 Mildly decrease d GFR 60-893a M ildly to moderately decr eased GFR 45-593b Moderat ramírez to severely decrea sed GFR 30-444 Severely decreased GFR 15-295 Kid jose failure <15 [Automa rosalino message] The system [employer] generated this result tra nsmitted reference range : >=60 mL/min/1.73 sq. m. The reference range was not used to interpret th is result as normal/abnormal . eGFR-NEVA (test code 102 See_Comment Normal e GFR: >= 60 = 8063) mL/min/1.73 m2N ote: The eGFR is calculated u sing the CKD-EPI equatio n. The eGFR declines with a ge. eGFR <60 mL/min/1.73 m2 is considered as "decreased". This equation should only be used for patients 18 and older. According to th e National Kidney Found[employer] on's Kidney Disease Outcome Quality Initiative (KDO QI) classification and 2012 Kidney Disease Improving Global Outcomes (KDIGO) Clinical Practi ce Guideline, the stage of CK D should be categorized bas ed on estimated GFR. Stage Description GFR mL/min/1.73 m21 Normal or high GFR >=902 Mildly decrease d GFR 60-893a M ildly to moderately decr eased GFR 45-593b Moderat ramírez to severely decrea sed GFR 30-444 Severely decreased GFR 15-295 Kid jose failure <15 [Automa rosalino message] The system [employer] generated this result tra nsmitted reference range : >=60 mL/min/1.73 sq. m. The reference range was not used to interpret th is result as normal/abnormal . MD EastonGlucose Rmeqt1974-73-25 14:51:32 Test Item Value Reference Range Interpretation Comments Glucose Level (test code 133 mg/dL 70-99 H Eff ective 05/20/16, = 5699) the glucose reference inter vals have been updat ed based on [place] an Diabetes Associ ation guidelines (Standards of Medical Care in Diabetes 2016. Diabetes Care 2 016; 39: S13-S22).Fa sting blood glucose:Normal: 70 99 mg/dLImpaire d fasting glucose (increased risk for diabetes or pre-diabetes): 100 125 mg/dLDiabet es mellitus: >/=1 26 mg/dL Random bl ood glucose:Normal: 70 199 mg/dLNote: Random glucose >100 mg/dL is associ ated with increased risk for diabetes Lab Interpretation (test Abnormal code = 33863-0) MD EastonMagnesium [id number] 14:51:31 Test Item Value Reference Range Interpretation Comments Magnesium (test code = 6359) 2.0 mg/dL 1.6-2.6 MD EastonBkiamgrkVUB4045-02-90 14:51:30 Test Item Value Reference Range Interpretation Comments LDH (test code = 6111) 397 U/L 135-225 H Resul ts greater than 1651 U/L may no t be reliable due to matrix effect w ith extended diluti on as it exceeds the trapper bird s recommended l imit. Caution should be exercised when interpreting guzman ch values and done in conjunction wit h clinical contex t. Lab Interpretation (test Abnormal code = 97631-9) MD EastonAlkaline Ombcdwjhmoo7703-64-01 14:51:29 Test Item Value Reference Range Interpretation Comments Alk Phos (test code = 4768) 170 U/L 40-129 H Lab Interpretation (test code = Abnormal 18071-6) MD EastonAlbumin [id number] 14:51:28 Test Item Value Reference Range Interpretation Comments Albumin Lvl (test code = 3.1 See_Comment L [A utomated message] 9914) The system [employer] generated this result transmitted ref erence range: 3.5 - 5. 2 gm/dL. The refe rence range was not u sed to interpret this result as normal/abnor mal. Lab Interpretation (test Abnormal code = 13674-3) MD EastonAspartate Bqssxqlqbmwmtuoa6486-68-17 14:51:27 Test Item Value Reference Range Interpretation Comments AST (test code = 4731) 45 U/L See_Comment H [Aut omated message] The system [employer] generated this result transmitted ref erence range: <=40. Th e reference range was not used to int erpret this result as normal/abnormal . Lab Interpretation (test Abnormal code = 03167-0) MD Easton.Serum Xxssolesto5256-25-87 14:51:25 Test Item Value Reference Range Interpretation Comments Creatinine (test code = 5399) 0.81 mg/dL 0.67-1.17 MD EastonPartial Thromboplastin [id number] 14:35:41 Test Item Value Reference Range Interpretation Comments PTT (test code 29.2 See_Comment [Automated m essage] = 6773) The system whic h generated this result transmitted ref erence range: 24.7 - 3 6.8 second(s). The reference range was not used to int erpret this result as normal/abnormal . ALLYSON (test code This lab cannot be = ALLYSON) scheduled at the following locations due to collection/proccess ing restrictions: [facility] and [facility]. MD EastonProthrombin [id number] 14:35:40 Test Item Value Reference Range Interpretation Comments PT (test code = 6746) 16.0 See_Comment H [Auto mated message] The system which generated this result transmitted reference range : 11.5 - 13.9 second(s). The reference range was not used to interpret this result as normal/abnormal . INR (test code = 1.37 0.90-1.10 H 5973) ALLYSON (test code = ALLYSON) This lab cannot be scheduled at the following locations due to collection/procc essing restrictions: [facility] and [facility]. Lab Interpretation Abnormal (test code = 25263-0) MD EastonIwxjrgriSwlmgctpdbra2428-71-07 14:27:49 Test Item Value Reference Range Interpretation Comments Neutrophil % (test code = 78.5 % 42-66 H 52041-5) Lymphocyte % (test code = 5.1 % 24-44 L 737-7) Monocyte % (test code = 12.8 % 2-7 H 744-3) Eosinophil % (test code = 0.0 % 1-4 L 713-8) Basophil % (test code = 0.2 % 0-1 707-0) IGRE % (test code = 3.4 % 0-0.4 H IGRE % c ount 50427-4) includes Metamyelocytes, Myelocytes, and Promyelocytes. Neutrophil Abs (test code 10.38 K/uL 1.7-7.3 H = 753-4) Lymphocyte Abs (test code 0.68 K/uL 1-4.8 L = 732-8) Monocyte Abs (test code = 1.69 K/uL 0.08-0.7 H 743-5) Eosinophil Abs (test code 0.00 K/uL 0.04-0.4 L = 712-0) Basophil Abs (test code = 0.02 K/uL 0-0.1 705-4) IG Abs (test code = 0.45 K/uL 0-0.04 H 41935-7) Lab Interpretation (test Abnormal code = 49880-1) MD Easton.UMA0707-09-11 14:27:44 Test Item Value Reference Range Interpretation Comments WBC (test code = 13.2 K/uL 4-11 H 6690-2) RBC (test code = 789-8) 3.21 See_Comment L [Au tomated message] The system [employer] generated this result transmitted ref erence range: 4.50 - 6 .00 M/uL. The refer ence range was not u sed to interpret this result as normal/abnor mal. Hgb (test code = 718-7) 11.3 See_Comment L [Au tomated message] The system [employer] generated this result transmitted ref erence range: 14.0 - 1 8.0 gm/dL. The refe rence range was not u sed to interpret this result as normal/abnor mal. Hct (test code = 34.2 % 40-54 L 4544-3) MPV (test code = 787-2) 11.3 fL 4-10.4 H MCH (test code = 785-6) 35.2 pg 27-31 H MCHC (test code = 33.0 See_Comment [Automate d message] 786-4) The system [employer] generated this result transmitted ref erence range: 31.0 - 3 6.0 gm/dL. The refe rence range was not u sed to interpret this result as normal/abnor mal. RDW-SD (test code = 92.2 fL 35.1-46.3 H 28495-6) RDW-CV (test code = 24.4 % 12-15.5 H 788-0) Platelet count (test 75 K/uL 140-440 L code = 777-3) INRBC (test code = 0.0 % See_Comment The INRBC (instrument 5974) NRBC) value ref lects the enumeration of nucleated red b lood cells contained in a 200uL sampleof whole blood analyzed by the instrument. Thi s value maydiffer from the NRBC value reported in a m anual differential,wh ich is based on a 100 cell differential. [Automated mess age] The system [employer] generated this result transmitted ref erence range: <=0.0. T reference range was not used to int erpret this result as normal/abnormal . Lab Interpretation Abnormal (test code = 30813-6) MD EastonCalcium Ionized, Axoqed1673-30-75 12:28:51 Test Item Value Reference Range Interpretation Comments V Ion Ca (test code = 75802-0) 1.23 mmol/L 1.15-1.29 MD EastonCOVID-19 (SARS-CoV-2) PCR-Asymptomatic [id number] 03:53:39 Test Item Value Reference Range Interpretation Comments COVID19 (SARS Not Detected Not Detected This test is a CoV-2) Result qualitative (test code = reverse-transcr iptase 61466-7) polymerase lester n reaction (RT-PC R) developed for located within [facility] [place] SATYA 680 0 system and inte nded for the detecti on of SARS CoV-2 RNA in human nasophary ngeal specimens from patients who me et COVID-19 clinic al and/or epidemiological criteria. This assay has been approv ed by the FDA for use only under Emergency Use Authorization ( EUA) in laboratories that have been CLIA-certified to perform moderate-comple xity and high-comple xity tests. The performance characteristics of this assay were verified by the Microbiology Laboratory at [facility] [place], CLIA Accreditation # : [id number] and CAP Accreditation # : [id number]. Result s must be interpreted within the context of all relevant clinic al and laboratory find ings and should not form the sole basis for a diagnosis or treatment decis ion. "Presumptive Positive" resul ts are due to partial amplification o f SARS-CoV-2 targ ets and indicates l ow amounts of viru s present in the specimen at or near the limit of detection. Regardless, individuals wit h "Presumptive Positive" resul ts should be manag ed per institutional guidelines as individuals pos itive for SARS-CoV-2 virus, including use o f appropriate inf ection control protoco ls. Internal contro ls are included to ass ess for possible amplification inhibitors. If inhibition is detected, testi ng is repeated and if inhibition is confirmed the specimen is res ulted as "Invalid". W hen an "Invalid" resul t occur, it is recommended to wait 3 days before submitting a ne w specimen for te sting if clinically indicated. COVID19 SARS PRODUCT MANAGENT INTERN Swab Source (test code = 86873) COVID19 SARS Inpatient Indication (test Admission code = 51228) ALLYSON (test code = Per ID ALLYSON) recommendation, 7 day Hematology COVID swab MD EastonLactsupriya Acid, Fihgdy4014-12-48 16:51:29 Test Item Value Reference Range Interpretation Comments V Lactate (test code = 2519-7) 4.6 mmol/L 0.5-1.6 A Lab Interpretation (test code = Abnormal 51084-8) [facility] Glucose Ouptrl2450-60-84 22:47:32 Test Item Value Reference Interpretation Comments Range POC Glucose (test 120 mg/dL 70-99 H RN Notifie dCapillary code = 48590-1) blood sample s, e.g. obtained by fingerstick, ma y have inaccurate resu lts in patients with decreased perip heral blood flow. Met hod description: Al l results are duong sured using Electroch emistry test methodolog y. The glucose in the sample mixes with the reagents on the test strip. The reac tion produces an spenser ctric current. The am ount of current produce d is proportional to the glucose concent ration in the blood. PO Sample Type (test Capillary code = 9554) Performing Lab (test [facility] Main Main Ca [facility] code = 32521) [facility] MD [facility], [address] [place] [address], [place], [place] [address]; Web Specialist: Bonny Montano MD Lab Interpretation Abnormal (test code = 54508-6) MD ThompsonE Gvlhchs5262-79-32 18:52:40 Test Item Value Reference Range Interpretation Comments Final Report (test No Vancomycin resistant code = 8488) Enterococci isolated Path Review - VRE The results have been (test code = 8485) reviewed and electronically signed by Pathologist:Juan Evans MD, PhD #[id number] MD EastonUrine Zfqldai2182-09-28 18:51:40 Test Item Value Reference Range Interpretation Comments Final Report (test No growth code = 8488) Path Review - Urine The results have been (test code = 8483) reviewed and electronically signed by Pathologist:Juan Evans MD, PhD #[id number] ALLYSON (test code = Early Sepsis Intervention ALLYSON) MD EastonStreptococcal Urine Antigen Path Lmethv6175-75-38 16:14:04 Streptococcal Urine Antigen Path ReviewReviewed and Electronically signed by Pathologist:Juan Evans MD, PhD #[id number] Comment: JUAN EVANS MD, PhD - [id number] by: JUAN EVANS MD, PhD - [id number] Date/Time: 02.05.2021 11:14 AM CDT Transcribed Date/Time: 02.05.2021 11:14 AM CDTElectronically Signed By: JUAN EVANS MD, PhD - [id number] on 02.05.2021 11:14 AM [facility] AndersonLegionella Urine Antigen Path Ucvhgn6338-76-71 16:14:03 Legionella Urine Antigen Path ReviewReviewed and Electronically signed by Pathologist:Juan Arias, PhD #[id number] Comment: JUAN EVANS MD, PhD - [id number] by: JUAN EVANS MD, PhD - [id number] Date/Time: 02.05.2021 11:14 AM CDT Transcribed Date/Time: 02.05.2021 11:14 AM CDTElectronically Signed By: JUAN EVANS MD, PhD - [id number] on 02.05.2021 11:14 AM [facility] AndersonHHV6 Quant, Fthhns4668-33-64 01:25:55 Test Item Value Reference Range Interpretation Comments HHV6 Not Detected Not Detected Assay Range: 1 88 copies/mL to Plasma-Mayra copies/mL 1.00E+08 copies /mLThe limit of cor (test quantitation (L OQ) is 188 code = copies/mL. HHV- 6 DNA 5782) detectedbelow t he LOQ will be reported as Det ected:<188 copies/mL.This test was developed and i ts performance characteristics determined by [facility]. It has not been cleared or approvedby the U.S. Food and D rug Administration. Results should be used inconju nction with clinical findin gs, and should not form the so lebasis for a diagnosis or tr eatment decision. Performe d At:[employer] [address]Agagimintk Director: Francis Walker Ph.D., BCL D (ABB)CLIA#: [id number] e: [facility] Jtgmqyufbljbaj4966-30-22 01:23:00 Test Item Value Reference Range Interpretation Comments Submitted Clinical History e8jmhKMjWJBnbFB6HpL (test code = 47162) gVRMld5jmk1UrcMPiwV BnQPhgnJTtvhKyzy29h HM9mG37PF6hNXWrEpC6 GWPuvuK4Xvt7LMVmFLS znGFiG970e5thl6otqe DftTH6sXwuXKPyIRVbJ WluXGZzMjBccGFyXHBh cmRccGFyfQ== Diagnosis (test code = 34) p0oijYNjDWKmqQX8JxS lOQDtv7scu0XsnBWbxT OdCCpjoDAklpEcdx84t SY2xE43PS0bGRKsHtX8 BWSwdpC5Huw9PQWlQBD xuSQcF003k4qxi3xlbi HtqFX8mEtrMAPlUWRkD WluXGZzMjAgQTogUmln jTQbZPEuj92qorvbu8h wtxJolJ4hvSyovXMiRW xpNzIwXGxpbjcyMCBTa 6zoTPR7orInUHTkw1Xn eSBkZXZvaWQgYnkgZXB tNTBelHmoCOX2hGHkSK G2lDMaDraihLDfTBHsl w4kkWFhzP4beP6jpVS2 mS1doNYxKtDntmFxlRT dWXRtGMlimNova8EogE DfubCqEX8ooTRdf3Uin NjnFLYvn7Egpz7juIbo cyBhbmQgcmFyZSBtZWx eeu0klUDbVXImJSZuqr TMrGw8qQHcDFSmvEEfK GFtP0Lqt98kSFgitoHu NEqgnSwrQER8JUXwVOF lcGlkZXJtaXMgaXMgbm 29YTD5AFdwHLAvYIZuj 3NhWATfiIYpfXkioy3i cGFyIEFzIHBlciBjbGl hxTMmoTWfszIwuu8caZ lvbiwgdGhpcyByZXByZ XNlbnRzIHRoZSBiYXNl WP0yAKRhMkAaeG62boL pdo3xMJGhXpPGcIypbE IuzY0xUYJxe8ndL3pxU SJwieEspEP6yQ2oOCqx OS2fF8Zhp5EffFSxstB gaWYgIGluZGljYXRlZC mzNI6smPlbcyFigC8bq 4zzdAG0DPJgZIEucbQg ZGVyZWQuXHBhclxwYXJ kXHBhcn0= Comment (test code = 9835) t1pujEFqYYMdkMT2PjL yZYZrp5zcy1JxwLGtwX OkRAlmhRVxbzJgst95d VZ7aM75IX5gZBIiRdV3 XFRhhiK8Uom1ERKwBNE asTWoO584u9hvb3mllt SixUB9iFgnLMOuKQGdP ZisYOSdGvDzU6Tdvk72 ZSwgdGhlcmUgaXMgbm8 oRYOlbZOmCC7wX4Mhy5 fyVG2pSG7dJ6Plx7eqF C6oLNAqXXSxL6NhjH3g IHVuaXRzLlxwYXJ9 Gross Description (test y9uvoFXxIKMhwAUGYRG code = 6277772024) wMVxhbnNpXHNwbHRwZ3 PfedpkCWywKH5dSR2kd CccsRJitEKoEG2FWYFp ZmYxXHBhcGVydzEyMjQ pEBNbvJTxrSU7KTMgNU 1hcmdsMTgwMFxtYXJnc pQ7URLzzRPnY0LuUFEr MP2omsknMAD4XBjigS4 ckfRXLwkwLv3clANspF tcZjFcZmNoYXJzZXQwX AFqpMsgZOIzWMp7aP0I AddqCNQ3XYPDPrnzJNK gUM6Dw7zuUKTyyIKhES O3DKvsxAFkFLRzSSPpN Zg9GFBnIAgxkFGhVL5i qFxfEzjtiUnqw6RhjOT cXGlkIDUxMDAyIFxcZG AsPA8DDdVjFZUvZfexI QMdSLr5UAp5PU0HTkNc UYDhCVs4PCG1QZYnVEg 7ZPnkRQ8UMJhjLFs1CP kkAND0FWQ4XLPwWNFhL iBcXGYgQXJpYWwgXFxm cyAxMCBcXGZiIFxcZmw oPBtgN08laUqqbS6vLd chqoGgUFB5JWZyxmZOK lxwbGFpblxlcGljTmVz dERvYzEgDQpcbHRycGF yXGxpbjBccmluMCANCl xsdHJjaFxiXGZzMjAgU 2tpbiwgcmlnaHQgYWJk p91xkhpoEjfbNRNxF23 ix4qsoWTsFyCrDYP8ca GnFUSsu3QbsBF4nLA4B U1vHTH7zsPyMXKoXrYw bSBpbiBkaWFtZXRlciB 4IDAuMyBjbSBpbiBkZX J9oH1wEAQmACBuMUetM D6gIJqjo9rpbaCafk6q p5i9KJnzMX36pCMnEUJ fBOOVcESbqG9jnzFyji BpbmtlZCBibHVlLCBlb nRpcmVseSBzdWJtaXR0 NJUppU8pNPIrGODvbSS rbLAlvCqeFkndeLF4NS dwSikfyI7kdOWCHLHNN diXPbvrwzEpBF3NHW9G CcBXWU06HnGhLXA3JXw NE7LMxHB3Cmt3XUq3nG tcZmxkcnNsdCBcJzFDf C7KVSqtXpdiuIU8LIaq RqjfdP2niMGBKUNRPoe ZMjviyeUdUB5UKZ0PCH 1VfFRdJIZ8dTN4ZADQG ksjnVV9iGW5cJ02SVKz JDSzgJUoFTtoV526PTT mERvcRDp4srXuGMKvBs TtQCxjzXbvrD8fGKLbE 29hn9LRq2BzAYPwSElz q7kfgPlra3CluGDoZWx tTSUxjLOsXKwtcW1rJy Oge6ohkSd3BRffqiO7R GXued2JLeidyY1mVsVj b5tjoJo4YVAKLoqmnvA 9t0uaaDoye2FtjTCrUK 0NCn0= Scrubber System Attendant(s) (test code = f3frdIBxFNYvxXE5EiF 9863) eKZCss6idc4YdkKMcmL ZpWAxctEHazyEkxn21e LN6kM41OS1tCVRkAnB7 KWKkxlZ1Qrv8ZRCjEVI jvVUjP459r7yed2lzbb RccMS2lUzwNLIjXJHcH WluXGZzMjAgVkdQXHBh cn0= Disclaimer (test code = t6mwaRSvLGFspKQzRxJ 9844) pYAUiCZXzv3roMSCycH FuZzEwMzNcZnRuYmpcd QZrXTDmHuRwv6gjf313 pEDih5mtYZBxTkE9yHZ xEMSfrCFpG916TNNoNE fcd0rwq5LbYEUjaQCfw 6H1HITAsyebvNc7uHgi H34oa7Z8VxlqW7bkVCU iSLNcS4EmUS5eRIHtEq j8PBT1RRF7WSWdWKIiN 2MpAU5cIRFgrBFhZQm1 z8syvUbkNHKiCCI4t8n xVGhzxkWiUI5rrc4vlK o1b6adajGrMJXsKKEkz OKFYBCvY2GvtEjlZx7r pFb9jByeZdwrSVR1Lun 6BO5ctv98das1aUdrJM AnfdsiAiR1PKwmTUHpi riaPNr6SLkcXFYavRR2 WHWtmHXtI5RqHHVgPM0 vspt4TDL1LGxfZPJoSw Y8XYXyuROvSOErtPraB Xlgi668VRX8DpFcRL2a H3Gyp7V8gJ5jxVLkBLN tkXYePmLvPIErxm3ahW YmAWxun7JeDPZ5tvB4y SWsrXFzNIWtRJ66Hhyn f8ZrKrgcRWD1SWAgweI do8Wvu5ptUrRbliNmH9 oqI7KzSFElCNOwXNJhU fFceqXxo3Jjo5WepEFd xFh3s3htLBMbRILonPi si8myLLI4IYHoL1D5zX Yvx7xrTHvoOYNvvEC4i sC3UVQgbIXaC8IdsJ5s HICpGD7pahk9h5ztNOC 2REbrPPKvKnG1awU6SK BcaGVhZGVyeTcyMFxmb 584KPL8JsJlVAQvo7Pc T3EdqUbvF05koFgpK40 gSIUusEzrmU0bgMauyE 5cZjBcZnMyNFxxbFxwb JUxfubzKMffciO3ADal yrxwCLRiMIonY4vvFiE oNZMqqNkbPQdyc6SdGP NzISUnZedsmoE4KHGHz 34wUKKnv3WvPWGtgU4p tDYeGJerzyOukDS8BKi hdmUgYmVlbiBkZXZlbG 0vILSrAX9wTEUeynIob l4gxkMzOUVgIZCdF8Dc cmlzdGljcyBkZXRlcm1 rqzDkHEU0ERNRFO2ZPV AgVTKpx79zHVZezHtiv J4imQXehcFsTZJob8Mk rZ1dzFOEHTGwV0tgMO5 lUIsvc1XonOLihUQheF G2BAGfk1CePdPouvDif YKnpWAwQ5XruDbhI8uh BEPrLZXmoqXsjJCft0G lIQVmiMT5wGYmPD3MHz EGd18zYINsORNHahElO OBmdXpbwIA4krG1sF2t LiBJZiBhcHBsaWNhYmx lVRHcc108ti5tudU5BV ImWWBwxzryy8BxIICsD IXwnN48VFHtPNVntl9j utnpgXTrniOnC2Nuejo 6rH9oSBUyVTgeFWHgUX ZzMjJcbGFuZzEwMzNca GljaFxmMVxkYmNoXGYx TAplP9rxFyGfAxZgWpo wYXJ9 MD EastonHHV7 Quant Ienck9418-94-78 01:07:24 Test Item Value Reference Range Interpretation Comments HHV7 Quant Not Detected Not Detected Assay Range: 9 3 copies/mL to Serum (test copies/mL 1.00E+08 copies /mLThe limit of code = quantitation (L OQ) is 93 8743) copies/mL. HHV- 7 DNA detectedbelow t he LOQ will be reported as Det ected:<93 copies/mL.This test was developed and i ts performance characteristics determined by [employer]. It has not been cleared or approvedby the U.S. Food and D rug Administration. Results should be used inconju nction with clinical findin gs, and should not form the so lebasis for a diagnosis or tr eatment decision. Performe d At:[employer] [facility] [place] [address]Xzzdpoglej Director: Francis Walker Ph.D., BCL D (ABB)CLIA#: [id number] e: MD EastonStreptococcus pneumoniae Urine Ofcjtab9877-91-19 18:22:12 Test Item Value Reference Range Interpretation Comments Streptococcal Urine Antigen Negative Interpretation (test code = 93910439) MD EastonLegionella Urine Yipvnlj9182-90-28 18:21:33 Test Item Value Reference Range Interpretation Comments Legionella Urine Antigen Negative Interpretation (test code = 8067620) MD EastonHepatitis B Core Total Grwlqxxw8755-56-31 17:38:01 Test Item Value Reference Range Interpretation Comments HBc Total Ab-Flora Negative Negative Test Perf ormed by:Flora (test code = [facility] - 32103-4) [facility] [address] [place], [place] [address]Lsp Director: Stu Denney M.D. Ph. D.; CLIA# [id number] MD Easton Hepatitis C Virus Ab Screen, Reflex HCV [id number] 16:52:33 Test Item Value Reference Range Interpretation Comments HCV Ab Screen-Flora Negative Negative Signal-to -cutoff ratio is (test code = <1.00. Test Per formed 21416-3) by:[facility] [address] [place], [place] [address]Lab Director: Stu Denney M.D. Ph. D.; CLIA# [id number] MD Menesespatitis B Surface Ag w/Slwgppi8894-40-97 16:34:36 Test Item Value Reference Range Interpretation Comments Hep Bs Ag-Flora Negative Negative Test Perform ed by:Ciaran (test code = [facility] - 5196-1) [place] [employer] [address] [place], [place] [address]Isz Director: Stu Denney M.D. Ph. D.; CLIA# [id number] MD EastonPremagaly fresh frozen plasma:Transfusion Date: 02/03/2021; Transfusion Indications: INR > 1.5 before invasive procedure; G717, 6 Agirl9034-83-04 10:42:49 Test Item Value Reference Range Interpretation Comments FFP Product Ready 6 Fresh Froz en Plasma (test code = 46155-8) Availa ble - Order Form 03 when re dar for product iss ue. Unit Number (test [id number] code = 7002) Product Code (test [id number] code = 7003) Unit Expiration (test [id number] code = 624085) Unit Blood Type (test 5100 code = 7004) Product Code Text PLASMA IR CPD (test code = 448092) Unit Irradiated (test IRRADIATED code = 909225) Dispense Status (test ISSUED code = 7001) Unit Blood Type (test O Positive code = 7005) Product Conversion Worker .BPAM Location (test code = 778831) AndersonOsmolality Bcxnh8273-92-65 22:01:04 Test Item Value Reference Range Interpretation Comments U Osmolality (test code 287 See_Comment Urin antoni osmolality may = 7785) vary widely, de pending on the state of hydration. Lindsey om urine osmolality can range from 50 to 1400 mOsm/kg H2O depending o n fluid intake. In sana viduals on average flui d intake, urine osmolalit y is typically 300-9 00 mOsm/kg H2O.Uni ts of measure: mOsm p er Kg of water. [Automa rosalino message] The [employer] stem which generated this result transmit rosalino reference range : 50 - 1,400 mOsm/kg H 2O. The reference range was not used to interpr et this result as normal/abnormal . MD EastonSodium Level, Axuad5386-94-51 21:53:19 Test Item Value Reference Range Interpretation Comments U Sodium (test code = <20 mEq/L Normal range not available 7809) for collections less than 24 hours in dur ation. MD EastonCijuflwzXjwovxuzmns6306-30-43 20:56:00 Test Item Value Reference Range Interpretation Comments Haptoglobin (test code = 5858) 107 mg/dL 32-197 MD EastonCMV Quant [id number] 20:20:08 Test Item Value Reference Range Interpretation Comments CMV DNA PCR Target Not Target Not Normal Range: T arget (test code = Detected Detected IU/mL Not Detected. Reportable 5214) Range: 34.5 to 4,000,000 CMV D NA IU/mL; values b etween 4,000,000 to 10 ,000,000 CMV DNA IU/mL m ay be reported but th nikos should be inter preted with caution as this range of the as say has not been intern brand ally verified. The c linical significance of CMV levels at 4,000 ,000 IU/ml verses th ose above 4,000,000 is unclear. Result s are expressed in CM V DNA IU/ml plasma. Methodology: T he extraction and quantitation of cytomegalovirus (CMV) DNA in human pl asma is performed using the SATYA 6800 Syst em. Amplification o f viral DNA is achieved using polymerase lester n reaction (PCR). Internal contro ls are included to ass ess for possible amplif ication inhibitors. If inhibition is d etected, the specimen is tested again and if in hibition is confirmed th e specimen is res ulted as "Invalid". When an "Invalid" resul ts occurs, it is recommended to wait a minimum of 7-10 days before submitti ng a new specimen for te sting. This is an FDA- approved assay and its performance characteristics were verified by the microbiology la boratory at the [facility] [place]. Results must be interpr eted within the cont ext of all relevant cl inical and laboratory findings. MD EastonPnickukrSOP4985-80-98 19:01:50 Test Item Value Reference Range Interpretation Comments pH Florentin (test code = 7.32 7.32-7.43 Results are 2746-6) corrected for a body temp of 37C pCO2 Florentin (test code = 41.9 See_Comment [Auto mated message] 2021-01) The system [employer] generated this result transmit rosalino reference range : 41.0 - 51.0 mmH g. The reference r nayeli was not used to interpret this result as normal/abnormal . pO2 Florentin (test code = 38 mmHg 2705-2) HCO3 Florentin (test code = 22 mmol/L 21-28 89250-3) Base Excess Florentin (test -4 mmol/L -2-3 L code = 1927-3) O2 Sat Florentin (test code = 64 % 6513) Lab Interpretation (test Abnormal code = 01359-6) MD EastonX-ray Chest 1 Iren9098-26-35 18:04:38 Patchy right lower lung opacity is suspicious for a nidus of infection. Interface, Radiology Results In - 02/03/2021 1:06 PM CDTFULL RESULT:Examination: AP Portable Chest, 1 view, 02/03/2021 12:29 PMClinical History: Multiple myelomaIndication: FeverComparison: Chest radiograph 01/14/2021 at 2146 hoursTechnique: Single portable anteroposterior radiograph of the chest.Findings:Previously seen right internal jugular approach central venous catheter has been discontinued. Multiple external monitoring devices are coiled over the right lower thorax.There is a small irregular opacity in the right lower lung. No pleural effusion or pneumothorax. Pulmonary vascular clarity is within normal limits. The car diomediastinal silhouette is unchanged. IMPRESSION:Patchy right lower lung opacity is suspicious fora nidus of infection.MD EastonFFP Product Ready for Pick [id number] 17:44:14 Test Item Value Reference Range Interpretation Comments FFP Product Ready B2 Blood Bank Product i s ready for for Conversion Worker (test lease picker on February 03, code = 606376) 2020 12:44:10 CDT. MD EastonMolecular Diagnostics Specimen Collection -Qrbpw5081-04-84 15:20:16 Test Item Value Reference Range Interpretation Comments Molecular Diagnostics (Received) (test Yes code = 8400) Beaker Ap Link (test code = 23659) na MD EastonFerritin Qpldh1639-81-60 11:32:44 Test Item Value Reference Range Interpretation Comments Ferritin Lvl (test code = 5608) 4360 ng/mL 30-400 H Lab Interpretation (test code = Abnormal 94020-9) MD Menesespatigato C Virus [id number] 10:55:38 Test Item Value Reference Range Interpretation Comments HCVAb Received (test See Note HCVAb w as sent to a code = 20869) reference lab for testing. Expec t results on Hepa titis C Virus Ab Screen w/Reflex HCV PC R within 96 hours. MD Cat B Surface [id number] 10:55:37 Test Item Value Reference Range Interpretation Comments HBsAg Received (test See Note HBsAg w as sent to a code = 68179) reference lab for testing. Expec t results on Hepa titis B Surface Antigen w/ Confirm within 96 hours. MD Cat B Total Ig Core Ab (SCREENING) (anti-HBc total Ig; HBcAb total Ig)2021-02-03 10:55:36 Test Item Value Reference Range Interpretation Comments HBcAb Received (test See Note HBcAb w as sent to a code = 85894) reference lab for testing. Expec t results on Hepa titis B Core Total Ab w ithin 96 hours. MD EastonYizdsaqfMapgfq8475-87-30 10:38:52 Test Item Value Reference Range Interpretation Comments Lipase Lvl (test code = 6165) 22 U/L 13-60 MD EastonAmylase Yhkef9659-58-96 10:38:51 Test Item Value Reference Range Interpretation Comments Amylase Lvl (test code = 4806) 36 U/L 28-100 MD EastonD Ltljn4754-14-69 10:04:22 Test Item Value Reference Range Interpretation Comments D-Dimer (test code = >20.0 See_Comment A The cut off value for 5419) exclusion of ve nous thromboembolism is <0.51 mcg/mL FEUs (fi brinogen equivalent unit s). [Automated mess age] The system which ge nerated this result tra nsmitted reference range : 0.10 - 0.50 mcg/ml FEU . The reference range was not used to interpr et this result as normal/abnormal . Lab Interpretation Abnormal (test code = 79304-7) MD EastonTvnjnxkxVevwzrcvyi9693-22-28 09:54:12 Test Item Value Reference Range Interpretation Comments Fibrinogen (test code = 5610) 253 mg/dL 214-503 MD EastonRetic Skrs4656-46-91 09:15:41 Test Item Value Reference Range Interpretation Comments Retic Cnt Auto (test code = 16284-5) 7.5 % 0.5-1.5 H RETHE (test code = 6973) 38.4 pg 23.2-37.5 H IRF (test code = 13946-1) 22.8 % 2.3-18 H Lab Interpretation (test code = Abnormal 31440-0) MD EastonUrinalysis with Cdyxpupgcjz3745-00-38 04:30:02 Test Item Value Reference Interpretation Comments Range UA WBC (test code = 1 See_Comment [Automa rosalino 7904) message] The system which generated this result transmitted reference range : 0 - 2 /HPF. The reference range was not used to interpret this result as normal/abnormal . UA RBC (test code = 1 See_Comment [Automa rosalino 7891) message] The system which generated this result transmitted reference range : 0 - 2 /HPF. The reference range was not used to interpret this result as normal/abnormal . UA Mucous (test code TRACE TRACE /HPF = 7887) UA Bacteria (test NOT SEEN NOT SEEN /HPF code = 7870) UA Squam Epi (test NOT SEEN OCC /HPF code = 7896) UA Trans Epi (test OCC NOT SEEN /HPF A code = 7898) UA Hyal Cast (test 18 See_Comment H [Automat ed code = 7883) message] The system which generated this result transmitted reference range : 0 - 2 /LPF. The reference range was not used to interpret this result as normal/abnormal . ALLYSON (test code = Some reporting ALLYSON) parameters within the Urinalysis test have changed due to the implementation of new instrumentation in the [facility] [place], allowing greater sensitivity of measurement. Urinalysis results reported by the [facility] using existing instrumentation, as well as Urinalysis testing performed manually or by backup methodology at the [facility] will remain relatively unchanged. New reporting parameters and units will now be reported for all campuses. Lab Interpretation Abnormal (test code = 59209-7) MD EastonUrinalysis w/Microscopic if Qdazxvpyd0925-94-02 04:01:03 Test Item Value Reference Range Interpretation Comments UA Color (test code = 7877) Rita Yellow A UA Appear (test code = 7868) Hazy Clear A UA Glucose (test code = 7881) NEG NEG mg/dL UA Bili (test code = 7871) NEG NEG UA Ketones (test code = 7884) NEG NEG mg/dL UA Spec Grav (test code = 7894) 1.017 1.003-1.035 UA Blood (test code = 7872) NEG NEG UA pH (test code = 7909) 6.0 5.0-9.0 UA Protein (test code = 7890) NEG NEG mg/dL UA Urobilinogen (test code = 7903) NEG NEG UA Nitrite (test code = 7888) NEG NEG UA Leuk Est (test code = 7886) NEG NEG Lab Interpretation (test code = Abnormal 95401-3) MD Rayna Bazzi (In-House)2021-02-02 23:03:32 Test Item Value Reference Range Interpretation Comments Troponin T (test code 6 ng/L See_Comment < 19 ng/L = 9384) Sugges t retest at [address] to rule out myocardial infarction >= 1 9 to <=52 ng/L Possible myocardial inju ry. Suggest retest at 3 hours. - a change of < 20 ng/L, retest at 6 domingo rs - a c hange of >= 20 ng/L, sugges tive of myocardial infarction > 52 ng/L Suggestive of m yocardial infarction Crit ical value will be reporte d when cTnT is > 52 ng/L an d only reported for th e first in a series. Hemol yzed specimens with Hemolysis Index >100 (100 mg/dl or moderate hemoly sis) may cause interfere nces and falsely low res ults. [Automated mess age] The system which ge nerated this result tra nsmitted reference range : <=18. The reference range was not used to interpr et this result as stephani l/abnormal. MD EsatonRespiratory Viral Panel + COVID-19, Nasopharyngeal [id number] 20:23:19 Test Item Value Reference Range Interpretation Comments Adenovirus (test code = Not Detected Not Detected 7843) Coronavirus 229E (test Not Detected Not Detected code = 2749) Coronavirus HKU1 (test Not Detected Not Detected code = 5350) Coronavirus NL63 (test Not Detected Not Detected code = 5351) Coronavirus OC43 (test Not Detected Not Detected code = 5352) COVID19 (SARS-CoV-2) Not Detected Not Detected (test code = 91314-7) Human Metapneumovirus Not Detected Not Detected (test code = 6401) Human Not Detected Not Detected Rhinovirus/Enterovirus (test code = 7212) Influenza A (test code Not Detected Not Detected = 5618) Influenza A H1 (test Not Detected Not Detected code = 5619) Influenza A H1 2009 Not Detected Not Detected (test code = 5620) Influenza A H3 (test Not Detected Not Detected code = 5621) Influenza B (test code Not Detected Not Detected = 5622) Parainfluenza 1 (test Not Detected Not Detected code = 6779) Parainfluenza 2 (test Not Detected Not Detected code = 6780) Parainfluenza 3 (test Not Detected Not Detected code = 6781) Parainfluenza 4 (test Not Detected Not Detected code = 6782) Respiratory Syncytial Not Detected Not Detected Virus (test code = 7157) Bordetella Not Detected Not Detected Parapertussis (test code = 06861) Bordetella pertussis Not Detected Not Detected (test code = 4854) Chlamydiophila Not Detected Not Detected pneumoniae (test code = 5139) Mycoplasma pneumoniae Not Detected Not Detected (test code = 6203) ALLYSON (test code = ALLYSON) The BioFire RP2.1 is a real-time, nested multiplexed polymerase chain reaction test designed to simultaneously identify nucleic acids from 22 different viruses and bacteria associated with respiratory tract infection, including SARS-CoV-2, from a single nasopharyngeal swab (BOAT HOP) specimen. Specifically, the SARS-CoV-2 primers contained in the BioFire RP2.1 are designed to detect RNA from the SARS-CoV-2 in nasopharyngeal swabs in transport media from patients who are suspected of COVID-19 by their healthcare provider. Results must be interpreted within the context of all relevant clinical and laboratory findings and should not form the sole basis for a diagnosis or treatment decision. This assay has been approved by the FDA for use only under Emergency Use Authorization (EUA) in laboratories that have been CLIA-certified to perform moderate-complexity and high-complexity tests. The Microbiology Laboratory at [facility], CLIA Accreditation #[id number] and CAP Accreditation #[id number], verified the performance characteristics of this assay. Microbiology Laboratory at [facility] performs the assay using the [employer] System. Internal controls are used to monitor all stages of the test process. MD EastonCreatine Sxdroe7752-94-97 18:26:10 Test Item Value Reference Range Interpretation Comments CK (test code = 5206) 86 U/L 39-308 MD EastonAwajhxwdDSAL8250-96-46 18:26:09 Test Item Value Reference Range Interpretation Comments CK MB (test code = <2.0 See_Comment [Automat ed message] The 5209) system which ge nerated this result transmit rosalino reference range : <=10.4 ng/mL. The refe rence range was not used to interpret this result as normal/abnormal . [facility] Vwpcszcs7141-76-29 17:33:38 Test Item Value Reference Range Interpretation Comments POC Critical Comment See Note Test pe rformer notified (test code = 8955) Ordering Licensed Provider and /o r designee of POC Lactic Acid Venous cri tical Results. [facility] VBG+Oyr5428-83-99 17:33:37 Test Item Value Reference Range Interpretation Comments POC VB pH (test code 7.36 7.31-7.41 = 6719) POC VB pCO2 (test 34 See_Comment L [Automate d message] code = 6718) The system [employer] generated this result transmitted ref erence range: 41 - 51 mmHg. The reference r nayeli was not used to interpret this result as normal/abnor mal. POC VB pO2 (test 28 mmHg code = 6720) POC VB TCO2 (test 20 See_Comment L [Automate d message] code = 2026-) The system wh ich generated this result transmitted ref erence range: 24 - 29 mEq/L. The reference r nayeli was not used to interpret this result as normal/abnor mal. POC VB Bicarb (test 19 mmol/L 23-28 L code = 23548-9) POC VB Base Ex (test -6 mmol/L -2-3 L code = 1927-3) POC VB O2 Sat (test 50 % code = 6716) POC VB LAC (test 6.3 mmol/L 0.9-1.7 A Method desc ription: code = 2519-7) The i-STAT is an analyzer used f or in vitro quantific ation of various anal ytes in whole blood. The device uses a s lawrence disposable cart ridge which contains microfabricated sensors, a calibration tate Hitsbookon, fluidics system , and a waste chamber . Each test cartridge contains chemic ally sensitive biose nsors on a Atempo ip that are config ured to perform spec ific tests. The microfabricated sensors measure analyte concent ration by an electroch emical assay. POC Sample Type Venous (test code = 6690) POC Clean Dev (test Yes code = 6672) Performing Lab (test MDA Main Main Ca mpus code = 77106) [facility], [address] [place], [place] [address]; Web Specialist: Bonny Montano MD Lab Interpretation Abnormal (test code = 82869-1) [facility] Chem 8 without Hemoglobin and Sjowmnztrg3326-51-90 17:33:09 Test Item Value Reference Range Interpretation Comments POC NA (test code = 133 See_Comment L [[employer] [facility] [employer] message] 54772-8) The system [employer] generated this result transmitted ref erence range: 138 - 14 6 mEq/L. The refe rence range was not u sed to interpret this result as normal/abnor mal. POC K (test code = 4.4 See_Comment Method de scription: 75237-4) The i-STAT is a n analyzer used f or in vitro quantific ation of various anal ytes in whole blood. The device uses a s lawrence disposable cart ridge which contains microfabricated sensors, a calibration tate [employer], fluidics system , and a waste chamber . Each test cartridge contains chemic ally sensitive biose nsors on a Atempo ip that are config ured to perform spec ific tests. The microfabricated sensors measure analyte concent ration by an electroch emical assay. [[employer] message] The sy stem which generated this result transmit rosalino reference range : 3.5 - 4.9 mEq/L. Th e reference range was not used to int erpret this result as normal/abnormal . POC CL (test code = 99 See_Comment [[employer] message] 8689-3) The system [employer] generated this result transmitted ref erence range: 98 - 109 mEq/L. The refe rence range was not u sed to interpret this result as normal/abnor mal. POC VTCO2 (test code 21 See_Comment L [Autom ated message] = 2026-10) The system [employer] generated this result transmitted ref erence range: 24 - 29 mEq/L. The reference r nayeli was not used to interpret this result as normal/abnor mal. POC BUN (test code = 10 mg/dL 06-19 6299-2) POC Crea (test code 1.0 mg/dL 0.6-1.3 Medicati ons, = 12589-0) especially hydroxyurea or supplements, guzman ch as ascorbate, can interfere with test results causing a falsely and significantly h igher result than exp ected. If a problem is suspected with a patient's resul t, a sample should b e sent to the laborato for confirmatory te sting. Method descript ion: The i-STAT is a n analyzer used f or in vitro quantific ation of various anal ytes in whole blood. The device uses a s lawrence disposable cart ridge which contains microfabricated sensors, a calibration tate [place], fluidics system , and a waste chamber . Each test cartridge contains chemic ally sensitive biose nsors on a Atempo ip that are config ured to perform spec ific tests. The microfabricated sensors measure analyte concent ration by an electroch emical assay. POC eGFR-AA (test 100 See_Comment Normal eGF R >= 60 code = 79257-4) mL/min/1.73 m2 The eGFR is calcula rosalino using the CKD-E PI equation. The e GFR declines with a ge. eGFR <60 mL/min /1.73 m2 is considere d as "decreased" Thi s equation should only be used for pat ients 18 and older. According to th e National Kidney Foundation's Ki dney Disease Outcome Quality Initiat jennifer (KDOQI) classification and 2012 Kidney Dis ease Improving Globa l Outcomes (KDIGO ) Clinical Practi ce Guideline, the stage of CKD should b e categorized bas ed on estimated GFR. Stage Description GFR mL/min/1.73 m21 Kidney damage w ith normal or high GFR >=902 Kidney d amage with mild decre ase in GFR 60-893a Mild to moderate dec rease in GFR 45-5 93b Moderate to sev ere decrease in GFR 30-444 Severe decrease in GFR 15-295 Kidney f ailure <15 (or ivon lysis) [Automated GiveNext] The system [employer] generated this result transmitted ref erence range: >=60 mL/min/1.73 m2. The reference range was not used to int erpret this result as normal/abnormal . POC eGFR-NEVA (test 86 See_Comment Normal eG FR >= 60 code = 00529-3) mL/min/1.73 m2 The eGFR is calcula rosalino using the CKD-E PI equation. The e GFR declines with a ge. eGFR <60 mL/min /1.73 m2 is considere d as "decreased" Thi s equation should only be used for pat ients 18 and older. According to th e National Kidney Foundation's Ki dney Disease Outcome Quality Initiat jennifer (KDOQI) classification and 2012 Kidney Dis ease Improving Globa l Outcomes (KDIGO ) Clinical Practi ce Guideline, the stage of CKD should b e categorized bas ed on estimated GFR. Stage Description GFR mL/min/1.73 m21 Kidney damage w ith normal or high GFR >=902 Kidney d amage with mild decre ase in GFR 60-893a Mild to moderate dec rease in GFR 45-5 93b Moderate to sev ere decrease in GFR 30-444 Severe decrease in GFR 15-295 Kidney f ailure <15 (or ivon lysis) [Automated GiveNext] The system [employer] generated this result transmitted ref erence range: >=60 mL/min/1.73 m2. The reference range was not used to int erpret this result as normal/abnormal . POC Glucose (test 123 mg/dL 70-99 H code = 81549-5) POC Ion Ca (test 1.14 mmol/L 1.12-1.32 code = 73780-2) POC Sample Type Venous (test code = 6690) POC Clean Dev (test Yes code = 6672) Performing Lab (test MDA Main Main Ca mpus code = 10203) [facility], [address] [place], [place] [address]clara Haddad, [place] [address]; Web Specialist: Bonny Montano MD Lab Interpretation Abnormal (test code = 88156-4) [facility] Interpretation Antibody Screen [id number] 21:48:10 Test Item Value Reference Range Interpretation Comments TMP Auto Neg At the present ABSC Interp time, patient (test code = plasma shows no ____ERNESTO VERNON 7535) evidence of RBC GERA NEAL MD alloantibodies. - 34649Greow rosalino by: MD Kacey VENEGAS [id number] Date/Time: 16:48 PM CDT Transcribed Jerson e/Time: 01.27.2021 16:4 8 PM CDTElectronical ly Signed By: MD Kacey HADDAD [id number] on 16:48 PM MD EastonIFE Path [id number] 19:34:08 Test Item Value Reference Range Interpretation Comments LI Path The follow-up serum Int (test protein code = immunofixation EDWARD VASQUEZ MD 5949) electrophoretic - 52563Ocafl rosalino by: patterns obtained EDWARD BARTON MD - [place] [address] d antisera against IgG, Date/T devin: 01.27.2021 IgA, IgM, bound kappa 14:34 PM CDT and bound lambda Transcribed Date/Time: light chains are 01.27.2021 14:34 PM positive for an IgG CDTElect ronically kappa monoclonal Signed By: EDWARD gammcristi. MD CHRISTINA - 1018 4 on 01.27.2021 14:3 4 PM MD EastonImmunofixation uprhsdkrlvbqhlk1019-64-88 19:34:07 Test Item Value Reference Range Interpretation Comments LI (test code = 5948) GK MD EastonProtein Electrophoresis Path [id number] 19:34:06 Test Item Value Reference Range Interpretation Comments SPE Path The follow-up serum Interp (test protein code = 7285) electrophoretic BEVE RLY pattern shows that MD CHRISTINA - the M-protein peak is 99091N ictated by: still present. It EDWARD BARTON MD - shows a decrease when 04352P ictated compared to the Date/Time: 0 01.27.2021 previous value of 0.8 14:34 PM CDT gm/100 ml on 12/02/20. Transcr ibed Date/Time: The pattern is also 01.28.20 14:34 PM consistent with an CDTElectr onically acute inflammatory Signed By : EDWARD VASQUEZ MD - 1018 4 on 01.27.2021 14:3 4 PM AndersonProtein Electrophoresis (SPEP)2021-01-27 19:34:05 Test Item Value Reference Range Interpretation Comments TOT PROTEIN (test code = 5.7 See_Comment L [A utomated message] 3045) The system [facility] ACTV8 generated this result transmitted ref erence range: 6.4 - 8. 3 gm/dL. The refe rence range was not u sed to interpret this result as normal/abnor mal. Albumin (test code = 2.8 See_Comment L [Autom ated message] 4811-7) The system [employer] generated this result transmitted ref erence range: 3.6 - 5. 4 gm/dL. The refe rence range was not u sed to interpret this result as normal/abnor mal. Alpha 1 Globulin (test 0.5 See_Comment H [Aut omated message] code = 2865-4) The system [employer] generated this result transmitted ref erence range: 0.2 - 0. 4 gm/dL. The refe rence range was not u sed to interpret this result as normal/abnor mal. Alpha 2 Globulin (test 1.1 See_Comment H [Aut omated message] code = 2868-8) The system [employer] generated this result transmitted ref erence range: 0.5 - 1. 0 gm/dL. The refe rence range was not u sed to interpret this result as normal/abnor mal. Beta Globulin (test code 0.5 See_Comment [A utomated message] = 2871-2) The system [employer] generated this result transmitted ref erence range: 0.5 - 1. 1 gm/dL. The refe rence range was not u sed to interpret this result as normal/abnor mal. Gamma Globulin (test 0.8 See_Comment [Autom ated message] code = 2874-6) The system [facility] generated this result transmitted ref erence range: 0.7 - 1. 6 gm/dL. The refe rence range was not u sed to interpret this result as normal/abnor mal. Paraprotein1 (test code 0.5 See_Comment H [Au tomated message] = 34463-5) The system [employer] generated this result transmitted ref erence range: 0.0 - 0. 0 gm/dL. The refe rence range was not u sed to interpret this result as normal/abnor mal. Lab Interpretation (test Abnormal code = 29881-4) MD EastonAntibody [id number] 16:54:23 Test Item Value Reference Range Interpretation Comments ABSC. (test code = 890-4) Negative ABSC MD Ochoa Prot Electrophoresis Path [id number] 16:46:08 Test Item Value Reference Range Interpretation Comments U ProE Path The follow-up urine Int (test protein code = electrophoretic CHECO MOFFETT MD, 7803) pattern shows a small PhD 14 036Dictated by: peak in the gamma CHECO Morris MD, PhD region that 84882Azvcfvyz corresponds with an Date/Yusef e: 01.27.2021 IgG kappa M-protein 11:46 AM CDT band by Transcribed Jerson e/Time: immunofixation 01.27.2021 11 :46 AM studies. CDTElectronical ly Signed By: SAMIR MOFFETT MD, PhD 1 3706 on 01.27.2021 11:4 6 AM MD Ochoa LI Path [id number] 16:46:07UIFE Path IntThe follow-up urine protein immunofixation electrophoretic patterns obtained with the use of antisera against IgG, IgA, IgM, bound and free [place] and Lambda light chain proteins show no definitive evidence of a Bence-Higuera protein band. Correlation with other clinical findings is recommended.The patterns do, however, show a small IgG kappa M-protein band in the gamma region. Comment: ____ CHECO MOFFETT MD, PhD [id number] by: CHECO MOFFETT MD, PhD [id number] Date/Time: 01.27.2021 11:46 AM CDT Transcribed Date/Time: 01.27.2021 11:46 AM CDTElectronically Signed By: [place] [id number] on 01.27.2021 11:46 AM [facility] EastonIFE [id number] 16:46:06 Test Item Value Reference Range Interpretation Comments UIFE (test code = 7916) No BJP, +GK MD EastonProtein Electrophoresis [id number] 16:46:05 Test Item Value Reference Range Interpretation Comments U Albumin % (test code = 7676) 28.2 % 30-50 L U Globulin% (test code = 8523) 71.8 % 50-70 H Lab Interpretation (test code = Abnormal 83802-6) MD Moore [place]/Free Lambda [id number] 19:17:37 Test Item Value Reference Range Interpretation Comments FKap/FLam RT (test code = 5566) 0.67 0.26-1.65 MD Moore [place] Light [id number] 19:17:36 Test Item Value Reference Range Interpretation Comments Free [place] (test code = 5629) 5.04 mg/L 3.3-19.4 MD EastonHyxwutolOoK2279-92-32 19:17:35 Test Item Value Reference Range Interpretation Comments IgA (test code = 5992) 39 mg/dL 85-499 L Lab Interpretation (test code = Abnormal 58242-7) MD Moore Lambda Light [id number] 18:36:17 Test Item Value Reference Range Interpretation Comments Free Lambda (test code = 5630) 7.55 mg/L 5.71-26.3 MD EastonBeta 2 Khlloqujvcvrg1917-90-77 18:36:16 Test Item Value Reference Range Interpretation Comments Beta2 Microglob (test code = 5090) 3.5 mg/L 0.8-2.3 H Lab Interpretation (test code = Abnormal 29687-5) MD EastonWucmwfuoKeE2348-42-25 18:36:15 Test Item Value Reference Range Interpretation Comments IgM (test code = 6023) 63 mg/dL 35-242 MD EastonXtsqeimhDzW9931-17-52 18:36:14 Test Item Value Reference Range Interpretation Comments IgG (test code = 6001) 811 mg/dL 610-1616 MD EastonGyrbcdgk36ck Urine Total Izeuyrl5435-53-03 16:30:39 Test Item Value Reference Range Interpretation Comments UTP (test code = 7921) 13 mg/dL Cauti on is advised when interpreting va lues greater than 55 5 mg/dL.Results r equiring extended diluti on beyond the trapper bird's recommendedlimi t may not dilute line becca due to potential ma trix effect.Correlat ion with clinical contex t is recommended. UTP 24 (test code = 306 See_Comment H [Automa rosalino message] 1747) The system [employer] generated this result transmitted ref erence range: <=149 mg /24hr. The reference r nayeli was not used to int erpret this result as normal/abnormal . Lab Interpretation Abnormal (test code = 26210-8) MD EastonTotal Qhiihd2991-70-86 15:21:19 Test Item Value Reference Range Interpretation Comments Total Volume (test code 2350 See_Comment H Manju ection date/time = 1026) has been modifi ed to: 09:30:00. Prev ious collection date/time: 11/14 09:52:00.Correc rosalino from 2350 mL/24 h [HI] on 1 10:21:18 CDT by Nicky Orr [Automated mess age] The system [employer] generated this result transmit rosalino reference range : 1,200 - 1,500 m L/24 h. The referenc e range was not u sed to interpret th is result as normal/abnormal . Hrs Collected (test 24 Collecti on date/time code = 5928) has been modifi ed to: 09:30:00. Prev ious collection date/time: 11/14 09:52:00.Correc rosalino from 24 [NA] on 01/23/21 10:21: 18 CDT by Nicky Orr Start Date (test code = 01/22/2021 Manju ection date/time 7382) has been modifi ed to: 09:30:00. Prev ious collection date/time: 11/14 09:52:00.Correc rosalino from 01/22/21 0:00:00 CDT [NA ] on 01/23/21 10:21: 18 CDT by Nicky Orr End Date (test code = 01/23/2021 Collec tion date/time 5510) has been modifi ed to: 09:30:00. Prev ious collection date/time: 11/14 09:52:00.Correc rosalino from 01/23/21 0:00:00 CDT [NA ] on 01/23/21 10:21: 18 CDT by Nicky Orr Lab Interpretation Abnormal (test code = 26325-5) MD EastonCataguedater Tip [id number] 00:58:49 Test Item Value Reference Range Interpretation Comments Final Report (test No growth code = 8488) Path Review (test The results have been code = 8492) reviewed and electronically signed by Pathologist:BOLIVAR JOHNSON MD #[id number] MD EastonClostridium Difficile DNA Path [id number] 19:43:18C diff DNA PRReviewed and Electronically signed by Pathologist:BOLIVAR JOHNSON MD #[id number] Comment: C. difficile Toxin DNA (Primary Method) is a nucleic acid amplification test (NAAT) intended for the qualitative detection of bacterial DNA from toxigenic strains of Clostridium difficile.Reference Range: DNA NegativeRapid immunoassay method is performed on positive PCR samples.Clostridium Difficile Toxin Assay (Reflex Method) performed by rapid immunoassay for the detection of Clostridium difficile toxins A and B in stool specimens.Reference Range: NegativeWhen invalid results are obtainedby either the primary or reflex method, a new specimen should be collected for repeat testing. MD Kacey GOTTLIEB [id number] by: MD Kacey GOTTLIEB [id number] Date/Time: 01.16.2021 14:43 PM CDT Transcribed Date/Time: 01.16.2021 14:43PM CDTElectronically Signed By: MD Kacey GOTTLIEB [id number] on 01.16.2021 14:43 PM [facility] Laboratory Add-On Test 2021-01-16 13:45:18 Test Item Value Reference Range Interpretation Comments Ordered (test code = 6568) Test Added Test Needed (test code = 7604) Magnesium MD EastonBilirubin Ihbua8959-54-09 11:00:07 Test Item Value Reference Range Interpretation Comments Bili Total (test 0.7 mg/dL See_Comment Indocyanine Green (ICG) code = 5096) may cause false ly elevated bilirubin resul ts. Total and direct bili correa must not be measured from samples contain ing indocyanine gre en. False elevation of to denzel bilirubin can b e seen in patients with I gG concentrations above 28 g/L. [Automate d message] The system [employer] generated this result tra nsmitted reference range : <=1.2. The reference r nayeli was not used to int erpret this result as stephani l/abnormal. MD EastonClostridium Difficile DNA [id number] 09:00:01 Test Item Value Reference Range Interpretation Comments C difficile DNA (test Negative Negative code = 5134) C difficle Toxin EIA Test Not Performed Negative (test code = 8961) C difficile C. difficile DNA Interpretation (test code detection was = 1971056) negative making C. difficile infection highly unlikely in this patient. EIA not performed. MD EastonGastrointestinal Multiplex Panel Path [id number] 23:14:25GIMP PRReviewed and Electronically signed by Pathologist:BOLIVAR JOHNSON MD #[id number] Comment: Performed by real-time PCR methodology. This assay detects the presence of nucleic acid (DNA or RNA) for the pathogens reported. A result of "Not Detected" does not exclude the possibility of the presence of one or more of the pathogens at less than the detection limits of this assay. The results of the GI Panel should be considered presumptive. Clinical correlation is recommended. MD Kacey GOTTLIEB [id number] by: MD Kacey GOTTLIEB [id number] Date/Time: 01.15.2021 18:14 PM CDT Transcribed Date/Time: 01.15.2021 18:14 PM CDTElectronically Signed By: MD Kacey GOTTLIEB [id number] on 01.15.2021 18:14 PM [facility] [id number] 21:34:59 Test Item Value Reference Range Interpretation Comments Potassium Lvl (test 3.8 See_Comment [Automa rosalino message] The code = 6854) system which ge nerated this result tra nsmitted reference range : 3.5 - 5.1 mEq/L. The reference range was not u sed to interpret this result as normal/abnormal . MD EastonGastrointestinal Multiplex [id number] 20:49:45 Test Item Value Reference Range Interpretation Comments Campylobacter (test code = Not Detected Not Detected 5262) C difficile DNA (GI Multi Refer to separate Panel) (test code = 9112) C. difficile DNA Assay for results Plesiomonas shigelloides Not Detected Not Detected (test code = 6836) Salmonella (test code = Not Detected Not Detected 7315) Vibrio (test code = 8012) Not Detected Not Detected Vibrio cholerae (test code Not Detected Not Detected = 8013) Yersinia enterocolitica Not Detected Not Detected (test code = 8049) Enteroaggregative E. coli Not Detected Not Detected (EAEC) (test code = 5478) Enteropathogenic E. coli Not Detected Not Detected (EPEC) (test code = 5488) Enterotoxigenic E. coli Not Detected Not Detected (ETEC) (test code = 5489) Shiga-like toxin-producing Not Detected Not Detected E. col (STEC) (test code = 7295) E. coli O157 (test code = Not Applicable Not Detected 5477) Shigella/Enteroinvasive E. Not Detected Not Detected coli (EIEC) (test code = 5484) Cryptosporidium (test code Not Detected Not Detected = 5410) Cyclospora cayetanensis Not Detected Not Detected (test code = 5416) Entamoeba histolytica Not Detected Not Detected (test code = 5512) Giardia lamblia (test code Not Detected Not Detected = 5681) Adenovirus F 40/41 (test Not Detected Not Detected code = 4747) Astrovirus (test code = Not Detected Not Detected 4828) Norovirus GI/GII (test Not Detected Not Detected code = 6511) Rotavirus A (test code = Not Detected Not Detected 7219) Sapovirus (I, II, IV and Not Detected Not Detected V) (test code = 7321) MD EastonX-ray Chest 2 [id number] 03:04:45Small bilateral pleural effusions. Interface, Radiology Results In - 01/14/2021 10:06 PM CDTFULL R ESULT:Examination: XR CHEST 2 VW, 01/14/2021 9:53 PMClinical History: MyelomaIndication: FeverComparison: January 08, 2021Technique: Posteroanterior, lateral and dual-energy radiographs of the chest.Findings:Right PICC line with its distal tip over the SVC. No evidence of focal lung opacities. Small pleural effusions. No evident pneumothorax. There is no mediastinal or hilar adenopathy. Cardiac silhouette is normal. IMPRESSION:Small bilateral pleural effusions.MD EastonMicrobiology Add-On [id number] 17:45:35 Test Item Value Reference Range Interpretation Comments Order Action urinalysis with received the (test code = microscopic if add-on reques t 850406) indicated via e-mail 24 hours after it was generated. I called Kristyn Mcneill at 01/08/2021 2:41: 47 PM CDT and notified her th at add on can not be done. jhony EastonPrepare RBC:G17 NW, 1 [id number] 12:52:47 Test Item Value Reference Range Interpretation Comments PRBC Product Ready 1 Red Blood Cells (test code = Available - 91886-4) Order Form 03 when ready for product issue. Unit Number (test [id number] code = 7002) Product Code (test I0323H12 code = 700) Unit Expiration [id number] (test code = ) Unit Blood Type 5100 (test code = 7004) Product Code Text RBCIRLR CPD AS1 (test code = 500mL ) Crossmatch Expiration Date (test code = ) Unit Irradiated IRRADIATED (test code = 312998) Dispense Status ISSUED (test code = 7001) Unit Blood Type O Positive ____ (test code = 5) _ ____ MD EastonDifferential [id number] 10:56:18 Test Item Value Reference Range Interpretation Comments Diff Cancelled (test See Note Due to low WBC, the code = 8954) differential wi ll not be performed and i t is not possible to alysa culate ANC. MD EastonPreparuri platelets:Transfusion Date: 01/08/2021; Transfusion Indications: Platelet less than or equal to 20K; G1756, 1 Cixmf2008-28-26 02:26:38 Test Item Value Reference Range Interpretation Comments PLT Product Ready Approved Platelet o rder (test code = has been 20202-8) approved. Orde r Form 3 when ready for product issue. Expect 2 hours for platelet concentration. Unit Number (test [id number] code = 7002) Product Code (test [id number] code = 7003) Unit Expiration [id number] (test code = ) Unit Blood Type 5100 (test code = 7004) Product Code Text PLATELET IR LR Aph (test code = bag 1 237832) Unit Irradiated IRRADIATED (test code = 296052) Dispense Status ISSUED (test code = 1) Unit Blood Type O Positive ____ (test code = 5) _ ____ MD EastonTMP Interpretation [id number] 16:20:47 Test Item Value Reference Range Interpretation Comments TMP XM Interp RBC units (test code = crossmatched for 7566) transfusion appear MAYRI acceptable. N HARIS LAZO,Dictated by: LAURE LAZO,Dictated Date/Time: 01.08.2021 11:2 0 AM CDT Transcrib ed Date/Time: 01.08.2021 11:2 0 AM CDTElectronical ly Signed By: LAURA IN HARIS LAZO, on 01.08.2021 11:2 0 AM MD EastonProtein/Creatinine Ratio [id number] 21:16:17 Test Item Value Reference Range Interpretation Comments UTP Ran (test code = 66 mg/dL Normal range not 7922) available for collections les s than 24 hours i n duration. U Creatinine (test code 349.5 mg/dL 40-278 H The reference range = 7725) listed is for f irst morning urine collection. U Prot/Creat (test code 0.19 g/g See_Comment H [Au tomated = 7805) message] The sy stem which generated this result transmitted reference range : <=0.14. The reference range was not used to interpret this result as normal/abnormal . Lab Interpretation Abnormal (test code = 52770-5) MD EastonUS [id number] 19:24:31 No significant hydronephrosis bilaterally. Known renal cysts are better visualized on MRI abdomen .Interface, Radiology Results In - 01/07/2021 2:26 PM CDTFULL RESULT:Examination: US RENAL, 01/07/2021 1:33 PMClinical History: Multiple myeloma.Indication: Elevated creatinine level.Comparison: MRI abdomen 12/05/2020.Technique: Grayscale and color Doppler ultrasound of the kidneys and urinarybladder.Findings:Left kidney: Measures 12.4 cm in longitudinal dimension. Known cystic foci within the kidney are better visualized on MRI abdomen 12/05/2020. No discrete solid renal mass, obstructing calculi or hydronephrosis.Right kidney: Measures 13.9 cm in longitudinal dimension. Known cystic foci within the kidney are better visualized on MRI abdomen 12/05/2020. No discrete solid renal mass, obstructing calculi or hydronephrosis.Urinary bladder: Underdistended, compromising evaluation.Increased echogenicity and heterogeneous echotexture of the partially imaged liver may be related to known hepatic steatosis.IMPRESSION:No significant hydronephrosis bilaterally. Known renal cysts are better visualized on MRI abdomen 12/05/2020.MD EastonCreatinine [id number] 18:44:10 Test Item Value Reference Range Interpretation Comments U Creatinine (test 224.6 mg/dL 40-278 The refer ence range code = 7725) listed is for f irst morning urine collection. MD EastonVancomycin Trough Please draw vanc trough on 01/07/21 at 0430 (30 minutes before the dose is due at 0500)2021-01-07 12:07:04 Test Item Value Reference Range Interpretation Comments Vanco Trough 12.7 See_Comment Toxic Trough Le cade: >20 (test code = mcg/mL [Automat ed 8008) message] The sy stem which generated this result transmit rosalino reference range : 5.0 - 20.0 mcg/mL. Th e reference range was not used to interpr et this result as normal/abnormal . Vanco Tr Dose SEE NOTE Level, date, a nd time of Time (test code previous dos e is not = 8007) availablefor is sample. The jerson e reported is the samplecollectio n date. Vanco Tr Dose 01/07/2021 Level, date, a nd time of Date (test code previous dos e is not = 8006) availablefor is sample. The jerson e reported is the samplecollectio n date. ALLYSON (test code Please draw = ALLYSON) vanc trough on 01/07/21 at 0430 (30 minutes before the dose is due at 0500) MD Gómez Bone Marrow [id number] 23:11:10 Test Item Value Reference Range Interpretation Comments Final Report (test No Aerobic Organisms code = 8488) isolated at 14 days. No Anaerobic Organisms isolated at 14 days. ALLYSON (test code = ALLYSON) Processing Step: Malcolm/CryoUID: [id number] MD AndersonBusulfan Therapeutic [id number] 17:25:12 Test Item Value Reference Range Interpretation Comments BS10 R (test code = 0.289 mcg/mL The Busu lfan assay is not 01082-4) cleared or appr renetta by FDA. Its performance characteristics have been validated by [facility] for patient aj ting. An area under the plasm a concentration v ersus time curve (AUC) is generated. Results are int erpreted by PharmD and clin icians in context of the patient's clinical condit ions. Pathologist con sult is available. BS10 Time (test 2130 code = 15727-1) MD Marquesulffern Therapeutic [id number] 17:25:11 Test Item Value Reference Range Interpretation Comments BS9 R (test code = 0.617 mcg/mL The Busul fan assay is not 32515-4) cleared or appr renetta by FDA. Its performance characteristics have been validated by [facility] for patient aj ting. An area under the plasm a concentration v ersus time curve (AUC) is generated. Results are int erpreted by PharmD and clin icians in context of the patient's clinical condit ions. Pathologist con sult is available. BS9 Time (test code 1730 = 68962-9) MD Bunch [facility] [id number] 17:25:10 Test Item Value Reference Range Interpretation Comments BS8 R (test code = 0.874 mcg/mL The Busul fan assay is not 71407-6) cleared or appr renetta by FDA. Its performance characteristics have been validated by [facility] for patient aj ting. An area under the plasm a concentration v ersus time curve (AUC) is generated. Results are int erpreted by PharmD and clin icians in context of the patient's clinical condit ions. Pathologist con sult is available. BS8 Time (test code 1530 = 50529-4) MD [facility]ulfan [facility]rapeutic 17:25:09 Test Item Value Reference Range Interpretation Comments BS7 R (test code = 1.028 mcg/mL The Busul fan assay is not 80128-8) cleared or appr renetta by FDA. Its performance characteristics have been validated by [facility] for patient aj ting. An area under the plasm a concentration v ersus time curve (AUC) is generated. Results are int erpreted by PharmD and clin icians in context of the patient's clinical condit ions. Pathologist con sult is available. BS7 Time (test code 1330 = 85567-0) MD [facility] [id number] 17:25:08 Test Item Value Reference Range Interpretation Comments BS6 R (test code = 1.642 mcg/mL The Busul fan assay is not 76602-1) cleared or appr renetta by FDA. Its performance characteristics have been validated by [facility] for patient aj ting. An area under the plasm a concentration v ersus time curve (AUC) is generated. Results are int erpreted by PharmD and clin icians in context of the patient's clinical condit ions. Pathologist con sult is available. BS6 Time (test code 1130 = 61313-2) MD [facility] 17:25:07 Test Item Value Reference Range Interpretation Comments BS5 R (test code = 2.380 mcg/mL The Busul fan assay is not 95314-1) cleared or appr renetta by FDA. Its performance characteristics have been validated by [facility] for patient aj ting. An area under the plasm a concentration v ersus time curve (AUC) is generated. Results are int erpreted by PharmD and clin icians in context of the patient's clinical condit ions. Pathologist con sult is available. BS5 Time (test code 930 = 18060-4) MD EastonBusulffern Therapeutic [id number] 17:25:06 Test Item Value Reference Range Interpretation Comments BS4 R (test code = 2.759 mcg/mL The Busul fan assay is not 77901-0) cleared or appr renetta by FDA. Its performance characteristics have been validated by [facility] for patient aj ting. An area under the plasm a concentration v ersus time curve (AUC) is generated. Results are int erpreted by PharmD and clin icians in context of the patient's clinical condit ions. Pathologist con sult is available. BS4 Time (test code 900 = 75185-7) MD EastonBusulffern Therapeutic 17:25:05 Test Item Value Reference Range Interpretation Comments BS3 R (test code = 2.773 mcg/mL The Busul fan assay is not 40176-1) cleared or appr renetta by FDA. Its performance characteristics have been validated by [facility] for patient aj ting. An area under the plasm a concentration v ersus time curve (AUC) is generated. Results are int erpreted by PharmD and clin icians in context of the patient's clinical condit ions. Pathologist con sult is available. BS3 Time (test code 845 = 64372-4) MD AndersonBusulfan [facility] 17:25:04 Test Item Value Reference Range Interpretation Comments BS2 R (test code = 3.189 mcg/mL The Busul fan assay is not 73595-3) cleared or appr renetta by FDA. Its performance characteristics have been validated by [facility] for patient aj ting. An area under the plasm a concentration v ersus time curve (AUC) is generated. Results are int erpreted by PharmD and clin icians in context of the patient's clinical condit ions. Pathologist con sult is available. BS2 Time (test code 825 = 49580-7) [facility] 17:25:03 Test Item Value Reference Range Interpretation Comments BS1 R (test code = 1.205 mcg/mL The Busul fan assay is not 18427-2) cleared or appr renetta by FDA. Its performance characteristics have been validated by [facility] for patient aj ting. An area under the plasm a concentration v ersus time curve (AUC) is generated. Results are int erpreted by PharmD and clin icians in context of the patient's clinical condit ions. Pathologist con sult is available. BS1 Time (test code 615 = 19423-9) [facility] Pre [id number] 17:25:02 Test Item Value Reference Range Interpretation Comments BPRER (test code = 0.000 mcg/mL The Busul fan assay is not 76364-0) cleared or appr renetta by FDA. Its performance characteristics have been validated by [facility] for patient aj ting. An area under the plasma concentration v ersus time curve (AUC) is generated. Results are int erpreted by PharmD and clin icians in context of the patient's clinical condit ions. Pathologist con sult is available. BPRETime (test code = 500 63325-6) MD [id number] 10:54:05 Test Item Value Reference Range Interpretation Comments CRP (test code = 5.21 mg/L Reference r anges for HS CRP 5235) assay are as fo llows: Reference range s when used to assess cardi ac risk: <1.00 mg/L Low cardiovascular risk 1.00-3.00 mg/L Average cardiovascular risk >3.00 mg/L High cardi ovascular risk.Reference ranges when used to assess inflammatory responses: Les s than or equal to 10.00 mg/L. MD EastonNT-Pro BNP (In-House)2020-12-24 10:46:27 Test Item Value Reference Range Interpretation Comments NT ProBNP (test code 9 pg/mL See_Comment [Autom ated message] The = 9385) system which ge nerated this result tra nsmitted reference range : <=125. The reference r nayeli was not used to int erpret this result as normal/abnormal . MD Bunch Sample 19:12:36 Test Item Value Reference Range Interpretation Comments BS10 R (test code = 0.155 mcg/mL The Busu lfan assay is not 06530-9) cleared or appr renetta by FDA. Its performance characteristics have been validated by [facility] for patient aj ting. An area under the plasm a concentration v ersus time curve (AUC) is generated. Results are int erpreted by PharmD and clin icians in context of the patient's clinical condit ions. Pathologist con sult is available. BS10 Time (test 2000 code = 65921-1) MD EastonBrittanymarleny Sample 19:12:35 Test Item Value Reference Range Interpretation Comments BS9 R (test code = 0.209 mcg/mL The Busul fan assay is not 83622-9) cleared or appr renetta by FDA. Its performance characteristics have been validated by [facility] for patient aj ting. An area under the plasm a concentration v ersus time curve (AUC) is generated. Results are int erpreted by PharmD and clin icians in context of the patient's clinical condit ions. Pathologist con sult is available. BS9 Time (test code 1800 = 60492-4) MD Bunch Sample [id number] 19:12:34 Test Item Value Reference Range Interpretation Comments BS8 R (test code = 0.251 mcg/mL The Busul fan assay is not 30544-7) cleared or appr renetta by FDA. Its performance characteristics have been validated by [facility] for patient aj ting. An area under the plasm a concentration v ersus time curve (AUC) is generated. Results are int erpreted by PharmD and clin icians in context of the patient's clinical condit ions. Pathologist con sult is available. BS8 Time (test code 1700 = 60880-9) MD Bunch Sample 19:12:33 Test Item Value Reference Range Interpretation Comments BS7 R (test code = 0.360 mcg/mL The Busul fan assay is not 93727-2) cleared or appr renetta by FDA. Its performance characteristics have been validated by [facility] for patient aj ting. An area under the plasm a concentration v ersus time curve (AUC) is generated. Results are int erpreted by PharmD and clin icians in context of the patient's clinical condit ions. Pathologist con sult is available. BS7 Time (test code 1500 = 93376-7) MD Bunch Sample 19:12:32 Test Item Value Reference Range Interpretation Comments BS6 R (test code = 0.474 mcg/mL The Busul fan assay is not 69239-2) cleared or appr renetta by FDA. Its performance characteristics have been validated by [facility] for patient aj ting. An area under the plasm a concentration v ersus time curve (AUC) is generated. Results are int erpreted by PharmD and clin icians in context of the patient's clinical condit ions. Pathologist con sult is available. BS6 Time (test code 1300 = 61080-2) MD Bunch Sample 19:12:31 Test Item Value Reference Range Interpretation Comments BS5 R (test code = 0.632 mcg/mL The Busul fan assay is not 35759-7) cleared or appr renetta by FDA. Its performance characteristics have been validated by [facility] for patient aj ting. An area under the plasm a concentration v ersus time curve (AUC) is generated. Results are int erpreted by PharmD and clin icians in context of the patient's clinical condit ions. Pathologist con sult is available. BS5 Time (test code 1100 = 15104-7) MD Bunch Sample 19:12:30 Test Item Value Reference Range Interpretation Comments BS4 R (test code = 0.848 mcg/mL The Busul fan assay is not 48970-3) cleared or appr renetta by FDA. Its performance characteristics have been validated by r laboratory for patient aj ting. An area under the plasm a concentration v ersus time curve (AUC) is generated. Results are int erpreted by PharmD and clin icians in context of the patient's clinical condit ions. Pathologist con sult is available. BS4 Time (test code 1000 = 76209-1) MD Bunch Sample 19:12:29 Test Item Value Reference Range Interpretation Comments BS3 R (test code = 0.889 mcg/mL The Busul fan assay is not 42131-8) cleared or appr renetta by FDA. Its performance characteristics have been validated by r laboratory for patient aj ting. An area under the plasm a concentration v ersus time curve (AUC) is generated. Results are int erpreted by PharmD and clin icians in context of the patient's clinical condit ions. Pathologist con sult is available. BS3 Time (test code 930 = 69048-6) MD Bunch Sample 19:12:28 Test Item Value Reference Range Interpretation Comments BS2 R (test code = 1.047 mcg/mL The Busul fan assay is not 01362-7) cleared or appr renetta by FDA. Its performance characteristics have been validated by [facility] for patient aj ting. An area under the plasm a concentration v ersus time curve (AUC) is generated. Results are int erpreted by PharmD and clin icians in context of the patient's clinical condit ions. Pathologist con sult is available. BS2 Time (test code 915 = 09879-1) MD Bunch Sample 19:12:27 Test Item Value Reference Range Interpretation Comments BS1 R (test code = 1.338 mcg/mL The Busul fan assay is not 90950-5) cleared or appr renetta by FDA. Its performance characteristics have been validated by ou r laboratory for patient aj olivares. An area under the plasm a concentration v ersus time curve (AUC) is generated. Results are int erpreted by PharmD and clin icians in context of the patient's clinical condit ions. Pathologist con sterlingt is available. BS1 Time (test code 840 = 60659-2) MD Bunch Pre Test [id number] 19:12:26 Test Item Value Reference Range Interpretation Comments BPRER (test code = 0.000 mcg/mL The Busul fan assay is not 32325-4) cleared or appr renetta by FDA. Its performance characteristics have been validated by ou r laboratory for patient aj olivares. An area under the plasma concentration v ersus time curve (AUC) is generated. Results are int erpreted by PharmD and clin icians in context of the patient's clinical condit ions. Pathologist con sult is available. BPRETime (test code = 735 39360-1) MD EastonCMV Ab IgG+IgM Path [id number] 22:04:04CMV Panel PRNo evidence of previous CMV infection. If primary infection is suspected,repeat testing in 8-14 days.Reviewed and Electronically signed by Pathologist:Juan Evans MD, PhD #[id number] Comment:Test performed by an immunoassay intended for the qualitative detection of IgG and IgM antibodies toCytomegalovirus (CMV) in human serum. When equivocal results are obtained, another specimen should be fvvadtyap20-27 days later. JUAN EVANS MD, PhD - [id number] by: JUAN EVANS MD, PhD - [id number] Date/Time: 12.19.2020 16:04 PM SHIPPING TECHNICIAN Transcribed Date/Time: 12.19.2020 16:04 PM CSTElectronically Signed By: JUAN EVANS MD, PhD - [id number] on 12.19.2020 16:04 PM [facility] AndersonResearch Protocol [id number] 14:53:08 Test Item Value Reference Range Interpretation Comments Research Prot (test code = 7189) [id number] MD EastonCMV Ab IgG+[id number] 20:47:12 Test Item Value Reference Range Interpretation Comments CMV IgM Int (test code = 5219) Negative Negative CMV IgG Int (test code = 5217) Negative Negative MD EastonXR Chest 2 View Post [id number] 19:37:41Interval left internal jugular central venous catheter with tip projecting over the superior vena cava. No pneumothorax is visualized. Interface, Radiology Results In - 12/18/2020 1:39 PM CSTFULL RESULT:Examination: XR CHEST 2 VW POST IMPLANT, 12/18/2020 1:33 PMClinical History: Multiple myelomaIndication: Check Central Line placementComparison: Chest radiography December 06, 2020, December 04 1Technique: Posteroanterior, lateral and dual-energy radiographs of the chest.Findings: No infiltrates, effusions or suspicious pulmonary nodules are detected. Heart size is within normal limits. No gross adenopathy is detected.The previously visualized right internal jugular central venous catheter is no longer detected.IMPRESSION:Interval left internal jugular central venous catheter with tip projecting over the superior vena cava. No pneumothorax is visualized.MD EastonExalyssa Vascular Access Device: Non-Tunneled CVAD 2020-12-18 17:00:00Kandis Ferguson NP 12/18/2020 5:04 PMProcedure: central venous catheter exchange Date/Time: 12/18/2020 5:02 PM Provider Information:Authorized by: RACHELL Vargas Performed by: Kandis Ferguson NPAssistant present: no Patient Diagnosis:Preoperative Diagnosis: MMPost-operative diagnosis: unchanged Indications:Indications: different catheter needed Pre-Procedure Note:Patient examined pre-procedure: yesChart reviewed pre-procedure, including labs, images, history and physical exam: yesMedical crematory operator: no Pre-procedure patient condition: alert Anesthesia:Anesthesia: local infiltrationLocal anesthetic: lidocaine 1% without epinephrineAnesthetic total (ml): 4 Sedation:Patientsedated?: no Exchange Vascular Access Device:Preparation: equipment and IV tubing prepared, patient r jose for procedure and insertion site prepped and cleaned with aseptic techniqueSkin prep agent dried: skin prep agent dried Sterile barriers: maximum sterile barriers were used: cap, mask, sterile gown, sterile gloves, and large sterile sheetHand hygiene: hand hygiene was performed prior to central venous catheter insertion Location: right internal jugularPatient position: TrendelenburgCatheter type: triple lumenInstruments used: central venous catheter trayCatheter size in place: 12 FrCatheter ports clamped and cut: yesGuidewire easily inserted into catheter: yes Catheter removed without any res istance: yesGloves changed prior to new catheter placement: yesDilator inserted gently over guidewire: noDilator with peel away sheath inserted over guidewire: noNew catheter inserted through the same venous access: yesCatheter type: double lumenCatheter size inserted: 5 FrEstimated blood loss: none Specimen(s) Removed:Specimen(s) removed: no specimen collected Post-procedure:Post-procedure: line sutured and dressing appliedAssessment: blood return through all ports, free fluid flow, placement verified by x-ray and no pneumothorax on x-rayPatient condition: patient tolerated the procedure well withno immediate complications, patient does not report adverse symptoms, patient is warm and well perfused and patient remained hemodynamically stable throughout the procedureResponsiveness: awake and alertPatient disposition: discharge to home Comments:Ultrasound demonstrated compressibility of the right internal jugular vein. With ultrasound guidance, we then accessed the selected vessel using the micropuncture needle. We kept a permanent record of the ultrasound-guided vessel puncture image.Post procedure chest x ray shows right internal jugular vein central venous catheter in good position for infusion with tip in the SVC.MD EastonFrancisco DONOR ID PATH [id number] 13:54:48Donor ID Path InterpNo evidence of detectable Hepatitis B Surface Antigen.There is NO serologic evidence of Hepatitis B virus core antibody.There is NO serologic evidence of Hepatitis C virus antibodyThere is NO serologic evidence of previous exposure to HIV-1 or HIV-2Patient plasma shows no evidence of HTLV-I/II antibodies. Please retest in 6 months if an exposure is suspected.Screening for Trypanosoma cruzi antibody ([place] Disease) is Non-Reactive.Qualitative tube test (Sickledex) for the detection of Hemoglobin S is NEGATIVE. Comment: MD EVELYN - [id number] by: SATINDER VIRAMONTES MD - [id number] Date/Time: 12.18.2020 7:54 AM SHIPPING TECHNICIAN Transcribed Date/Time: 12.18.2020 7:54 AM CSTElectronically Signed By: SATINDER VIRAMONTES MD - [id number] on 12.18.2020 7:54 AM C [facility] DONOR [facility] [id number] 07:18:28 Test Item Value Reference Range Interpretation Comments DONOR HBSAG (test Non Reactive Non Reactive Performed at: code = 8559) [place] [address] DONOR HBCAB (test Non Reactive Non Reactive Performed at: code = 8560) [place] [address] DONOR HCV AB (test Non Reactive Non Reactive Performed at: code = 8561) [place] [address] DONOR HIV 1/2 AB Non Reactive Non Reactive Performed a t: (test code = 8563) [place] [address] DONOR HTLV I/II AB Non Reactive Non Reactive Performed at: (test code = 8564) [place] [address] DONOR T. CRUZI AB Non Reactive Non Reactive Performed at: (test code = 8565) [place] [address] DONOR HIV-1/HCV/HBV Non Reactive Non Reactive Performe d at: BY RORO (test code = [facility] [address]) [place] [address] DONOR WNV (test code Non Reactive Non Reactive Perform ed at: = 8567) [place] [address] DONOR SICKLEDEX (test Negative Negative Perfor med at:MD code = 8562) [place] [address] [facility] R[facility] Path [id number] 14:31:32 Test Item Value Reference Interpretation Comments Range TMP Donor RPR Path The Rapid Interpretation Plasma Reagin (test code = (RPR) assay is DEANNE FORDO 815325) negative. If a MD WANDER - syphilis [id number] b y: infection is SATINDER BOUDREAUX MD - suspected, [id number] please perform Date/Time: a Treponemal 8:31 AM SHIPPING TECHNICIAN specific Transcribed Jerson e/Time: screening 12.17.2020 8:31 AM assay. CSTElectronical ly Signed By: LEE VIRAMONTES MD - 2005 on 12.17.2020 8 :31 AM C MD Liu DONOR WNV PATH [id number] 14:31:31 Test Item Value Reference Range Interpretation Comments TMP Donor WNV West Nile Virus Interp (test by Nucleic Acid code = 9013) Testing is __SATINDER HOUSTON MD - Non-Reactive. [id number] by: MD Kacey WELSH [id number] D ate/Time: 12.17.2020 8:31 AM SHIPPING TECHNICIAN Transcribed Jersno e/Time: 12.17.2020 8:31 AM CSTElectronical ly Signed By: SATINDER JOHNSTON MD - on 8:31 AM C MD Liu DONOR RORO PATH [id number] 14:31:30 Test Item Value Reference Range Interpretation Comments TMP Donor Roro Non-Reactive Interp (test for HIV-1 and code = 9015) HCV RNA and HBV __SATINDER RAHMAN MD - DNA by Nucleic [id number] by: Acid Testing. SATINDER TOVAR MD - [id number] D ate/Time: 12.17.2020 8:31 AM SHIPPING TECHNICIAN Transcribed Jerson e/Time: 12.17.2020 8:31 AM CSTElectronical ly Signed By: SATINDER JOHNSTON MD - [id number] on 8:31 AM C MD EastonRapid Plasma Reagin (RPR) [Syphilis DONOR screening]2020-12-17 04:02:02 Test Item Value Reference Range Interpretation Comments Donor RPR (test code = 813146) Non Reactive Non Reactive MD EastonCT Sinus without [id number] 19:07:56No CT evidence for acute sinusitis. I personally reviewed these image(s) along with the resident's/lita willoughby's interpretations, certify that if a procedure was performed I was physically present, and agree with the final report.Interface, Radiology Results In - 12/06/2020 1:10 PM CSTFULL RESULT:Examination: CT SINUS WO CONTRAST on 12/06/2020 8:30 AMClinical History: 50-year-old male with Multiple myeloma. Indication: screening for sinusitis. Comparison: Head CT 10/26/2019Technique: Noncontrast CT of the paranasal sinuses was obtained.Findings: There is no significant mucosal thickening of the paranasal sinuses. No air-fluid levels are present. No destructive lytic or sclerotic bony lesions are identified. Visualized brain and orbits are unremarkable. Atherosclerotic calcifications are noted in the cavernous carotid arteries.IMPRESSION:No CT evidence for acute sinusitis.I personally reviewed these image(s) along with the resident's/fellow's interpretations, certify that if a procedure was performed I was physically present, and agree with the final report.MD EastonVascular Access [id number] 16:49:52This procedure requires no interpretation from the radiologist.MD Manning Vascular Access Device: Non-Tunneled CVAD 2020-12-06 15:20:00Dedra Voss NP 12/06/2020 5:23 PMProcedure: central venous catheter placement Date/Time: 12/06/2020 12:13 PM Provider Information:Performed by: Dedra Voss NPAuthorized by: SHALOM Sandhu Heading Machine Operator present: no Patient Diagnosis:Pre-operative diagnosis: Multiple myelomaPost-operative diagnosis: unchanged Indications:Indications: vascular access and apheresis Pre-Procedure Note:Patient examined pre-procedure: yesChart reviewed pre-procedure, including labs, images, history and physical exam: yesMedical crematory operator: crematory operator not needed Pre-procedure patient condition: alert Anesthesia:Anesthesia: local infiltrationLocal anesthetic: lidocaine 1% without epinephrineAnesthetic total (ml): 11 Sedation:Patient sedated?: no Central Venous Catheter Placement:Preparation: equipment and IV tubing prepared, patient ready for procedure, insertion site prepped and cleaned with aseptic technique and insertion site area shavedSkin prep agent dried: skin prep agent completely dried prior to procedureSterile barriers: maximum sterile barriers were used: cap, mask, sterile gown, sterile gloves, and large sterile sheetHand hygiene: hand hygiene performed prior to central venous catheter insertionLocation: right internal jugularSite selection rationale: axillary veins are completely flat per ultrasound assessmentPatient position: head turned to side contralateral to insertion siteand flatCatheter type: triple lumen (trialysis at 15 cm )Instruments used: central venous catheter trayPre- procedure: landmarks identifiedUltrasound guidance: yesSterile ultrasound techniques: sterile gel and probe cover used in ultrasound-guided central venous catheter insertionNeedle introduced intoanesthetized area: yesSterile Seldinger technique used: Seldinger technique usedMicroIntroducer withsheath inserted: yesDrip test performed: yesDilator inserted gently over guidewire: yesDilator with peel away sheath inserted: noCatheter inserted: yesIV tubing attached to catheter: yesReverse Trendelenburg position discontinued: yes Each lumen evacuated of air and flushed with sterile saline: yesCatheter size: 12 FrNumber of attempts: 1Successful placement: yesEstimated blood loss: none Post-procedu re:Post-procedure: line sutured and dressing appliedAssessment: blood return through all ports, freefluid flow, placement verified by x-ray and no pneumothorax on x-rayPatient condition: patient tolerated the procedure well with no immediate complications, patient does not report adverse symptoms, pat ient remained hemodynamically stable throughout the procedure and patient is warm and well perfusedResponsiveness: awake and alertPatient disposition: discharge to home Comments:Ultrasound demonstratedcompressibility of the right internal jugular vein. With ultrasound guidance, we then accessed the selected vessel using the micropuncture needle. We kept a permanent record of the ultrasound-guided vessel puncture image.Post procedure chest x ray shows right internal vein central venous catheter ingood position for infusion with tip in the SVC.MD Cody Abdomen with and without [id number] 03:21:491. Multiple hepatic hemangiomas.2. Hepatic steatosis and hepatomegaly.3. 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 Recommend follow-up to document stability.4. Decreased periportal lymph nodes.Interface, Radiology Results In - 12/05/2020 9:23 PM CSTFULL RESULT:Examination: MRI ABDOMEN W WO CONTRAST on 12/05/2020 3:42 PM.Clinical History: Multiple myeloma, elevated liver enzymes, liver mass detected on ultrasoundIndication: Evaluation of hepatic mass seen on ultrasound..Comparison: Ultrasound dated 12/04/2020 and PET/CT dated 11/09/2019Technique: MRI ABDOMEN W WO CONTRAST Findings:Lung bases: Lung bases are clear. Heart size is normal.Liver: Liver measures 20 cm in the midclavicular line.There is diffuse hepatic steatosis. Bilobar T2 hyperintense lesions demonstrate nodular peripheral enhancement with progressive filling of contrast compatible with hemangiomas. Segment 4/3 lesion, image 21 of series 5, measures 3 x 3.1 cm. Segment 8 lesion measures 4.3 x 4.3 cm on image 21 of series 5. Segment 7 lesion on image 28 of series 5 measures 4.4 x 2.5 cm. Segment 5 lesion, image 30 of series 5 measures 1.5 x 2.4 cm. Multiple other subcentimeter T2 hyperintense lesions with arterial enhancement are most compatible with hemangiomas, images 15, 29, 30, and 34 series 5. Scattered foci of arterial enhancement liver may be due to vascular shunting from the multiple hemangiomas.Biliary: No biliary dilatation. Gallbladder is within normal limits.Pancreas: The pancreatic ductal dilatation. Pancreas is normal in appearance.Adrenal glands: Normal.Kidneys: Right renal cysts measure up to 3 x 2.1 cm. Renal cysts within the left kidney measure up to 5 mm. No hydronephrosis detected. No abnormal enhancement.Spleen: Spleen measures 13 cm in AP dimension.Bowel: No bowel obstruction.Vasculature: Aortais normal in size. Portal and hepatic veins are patent. Nodular appearance of the right renal arterylikely represents a renal arterial aneurysm measuring 1.1 x 1.2 cm, image 119 of series 16. This is unchanged in appearance since the October 2019 PET/CT.Lymph nodes: Portacaval lymph node measures 1.1cm, previously 1.3 cm. Other periportal lymph nodes measure up to 9 mm, previously 1.5 cm.Peritoneal space: No ascites or peritoneal nodularity.Musculoskeletal: No abnormal enhancement detected.IMPRESSION:1. Multiple hepatic hemangiomas.2. Hepatic steatosis and hepatomegaly.3. 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 Recommend follow-up to document stability.4. Decreased periportal lymph nodes.MD EastonUrine LI Path [id number] 23:04:56UIFE Path IntThe follow-up urine protein immunofixation electrophoretic patterns obtained with the use of antisera against IgG, IgA, IgM, bound kappa and bound lambda light chains, free kappa and free lambda light chain proteins show the presence of an IgG kappa M-protein. There is no definitive evidence of a Bence- Higuera protein band. These findings do not show evidence of a Bence-Higuera proteinuria. Comment: MD Kacey MACE [id number] by: MD Kacey MACE [id number] Date/Time: 12.05.2020 17:04 PM SHIPPING TECHNICIAN Transcribed Date/Time: 12.05.2020 17:04 PM CSTElectronically Signed By: MD Kacey MACE [id number] on 12.05.2020 17:04 PM [facility] Electrophoresis Path [id number] 23:04:54 Test Item Value Reference Range Interpretation Comments U ProE Path The follow-up urine Int (test protein code = electrophoretic DAVID VASQUEZ MD [id number]) pattern does not show - 1018 4Dictated by: definitive evidence EDWARD VASQUEZ MD - of a Bence-Higuera [id number] ed protein peak. Date/Time: 17:04 PM SHIPPING TECHNICIAN Transcribed Jerson e/Time: 12.05.2020 17:0 4 PM CSTElectronical ly Signed By: BONNIEVE KATLIN VASQUEZ MD - 1018 4 on 12.05.2020 17:0 4 PM MD EastonX-ray Bone Survey [id number] 20:25:56Indeterminate lucencies in the frontal bone may represent venous lakes or stable myeloma. No indication of disease progression.Interface, Radiology Results In - 12/05/2020 2:28 PM CSTFULL RESULT:Examination: XR BONE SURVEY COMPLETE, 12/05/2020 1:43 PM.Clinical History: Multiple myelomaIndication: multiple myelomaComparison: Outside bone survey with long bonesTechnique: Complete bone survey with long bones, 25 viewsFindings: Two lucencies in the skull measuring 1.8 cm demonstrate no definite intervalchange and are indeterminate. They may represent stable myelomatous lesions or venous lakes.A focus of cortical hypertrophy involving the lateral cortex of the distal left fibular diaphysis is again visualized with no associated lucencyIncidental lucency with a sclerotic rim is visualized at the medial cortex of the proximal right humeral metadiaphysis, consistent with no suspicious lucency evident on the current examination.No vertebral compression fractures are visualized. Mild/moderate degenerative narrowing of the C5/6 intervertebral disc space with moderate posterior osteophyte formation. Mildnarrowing is also visualized at C4/5 with grade 1 retrolisthesis of C4 on C5.No suspicious myelomatous lesions are visualized in the humeri, radii, ulnas, ribs, pelvis, femora, tibias or right fibula. IMPRESSION:Indeterminate lucencies in the frontal bone may represent venous lakes or stable myeloma. No indication of disease progression.MD EastonUS Abdomen [id number] 16:47:331. Solitary hypoechoic solid appearing 2.5 cm right hepatic lesion. This lesion is indeterminate by ultrasound. Given the clinical context, further evaluation should be considered if clinically appropriate, with MRI liver protocol.2. Diffuse hepatic steatosis.3. No evidence of cirrhosis or portal hypertension by ultrasound. I personally reviewed these image(s) along with the resident's/fellow's interpretations, certify that if a procedure was performed I was physically present, and agree with the final report.Interface, Radiology Results In - 12/04/2020 10:49 AM CSTFULL RESULT:Examination: US LIVERDOPPLER, US ABDOMEN COMPLETE, 12/04/2020 10:07 AMClinical History: Multiple myelomaAlcohol dependencewith alcohol-induced disorder, not otherwise specifiedElevated liver enzymes levelIndication: Other:, Elevated LFTs and chronic ETOH history Comparison: None available.Technique: Grayscale and color Doppler ultrasound of the abdomen.Findings:Liver: Diffusely increased parenchymal echogenicity. Smooth surface contours and echotexture. The liver measures 19 cm in a craniocaudad span. Solitary hypoechoic solid appearing lesion in the subdiaphragmatic right hepatic lobe measures 2.2 x 1.9 x 2.5 cm.The portal and hepatic veins are patent with normal directional flow. Velocities are annotated on the images. The main portal vein is normal in caliber and measures 1.3 cm.Gallbladder: No wall thickening, pericholecystic fluid or gallstones.Common Bile duct: Normal measures 0.3 cm.Pancreas: The visualized portions of the pancreas are normal.Spleen: Normal spleen. Measures 2.6 cm.Kidneys: Normal echogenicity and parenchymal thickness. No suspicious renal lesions. The right kidney measures 12.1 cm. The leftkidney measures 12.2 cm.Upper Abdominal Aorta: Normal.Inferior Vena Cava: Patent IVC.IMPRESSION:1. Solitary hypoechoic solid appearing 2.5 cm right hepatic lesion. This lesion is indeterminate by ultrasound. Given the clinical context, further evaluation should be considered if clinically appropriate,with MRI liver protocol.2. Diffuse hepatic steatosis.3. No evidence of cirrhosis or portal hypertension by ultrasound.I personally reviewed these image(s) along with the resident's/fellow's interpretations, certify that if a procedure was performed I was physically present, and agree with the final rep ort.MD Vasquez Liver [id number] 16:47:331. Solitary hypoechoic solid appearing 2.5 cm right hepatic lesion. This lesion is indeterminate by u ltrasound. Given the clinical context, further evaluation should be considered if clinically appropriate, with MRI liver protocol.2. Diffuse hepatic steatosis.3. No evidence of cirrhosis or portal hypertension by ultrasound. I personally reviewed these image(s) along with the resident's/fellow's interp retations, certify that if a procedure was performed I was physically present, and agree with the final report.Interface, Radiology Results In - 12/04/2020 10:49 AM CSTFULL RESULT:Examination: US LIVERDOPPLER, US ABDOMEN COMPLETE, 12/04/2020 10:07 AMClinical History: Multiple myelomaAlcohol dependencewith alcohol-induced disorder, not otherwise specifiedElevated liver enzymes levelIndication: Other:, Elevated LFTs and chronic ETOH history Comparison: None available.Technique: Grayscale and color Doppler ultrasound of the abdomen.Findings:Liver: Diffusely increased parenchymal echogenicity. Smooth s urface contours and echotexture. The liver measures 19 cm in a craniocaudad span. Solitary hypoechoic solid appearing lesion in the subdiaphragmatic right hepatic lobe measures 2.2 x 1.9 x 2.5 cm.The portal and hepatic veins are patent with normal directional flow. Velocities are annotated on the images. The main portal vein is normal in caliber and measures 1.3 cm.Gallbladder: No wall thickening, pericholecystic fluid or gallstones.Common Bile duct: Normal measures 0.3 cm.Pancreas: The visualized portions of the pancreas are normal.Spleen: Normal spleen. Measures 2.6 cm.Kidneys: Normal echogenicity and parenchymal thickness. No suspicious renal lesions. The right kidney measures 12.1 cm. The leftkidney measures 12.2 cm.Upper Abdominal Aorta: Normal.Inferior Vena Cava: Patent IVC.IMPRESSION:1. Solitary hypoechoic solid appearing 2.5 cm right hepatic lesion. This lesion is indeterminate by ultrasound. Given the clinical context, further evaluation should be considered if clinically appropriate,with MRI liver protocol.2. Diffuse hepatic steatosis.3. No evidence of cirrhosis or portal hypertension by ultrasound.I personally reviewed these image(s) along with the resident's/fellow's interpretations, certify that if a procedure was performed I was physically present, and agree with the final rep ort.MD EastonVitamin D [id number] 20:00:09 Test Item Value Reference Range Interpretation Comments Vitamin D 25 OH (test 35 ng/mL 30-100 Refere nce Range: code = 8018) Deficiency: <10 ng/mLInsuff iciency: 10-29 ng/mLSufficienc y: 30-100 ng/mLPotential toxicity: >10 0 ng/mL MD EastonHematopathology Bone Marrow [id number] 21:57:00 Test Item Value Reference Range Interpretation Comments Diagnosis (test code = 34) d0ebqDHdKNObmNJ4NgU jUCEda8xka2WtjWMegX QhQLsedABqmaKfgj83i HR6eL20GB4yUMBeOtE2 GQKhkzQ9Kgu1KRTrODG mfGXeG179j2mld0rqtv HbxLR2hLmoSMCoFCU0K cMnDGH8YBU5AWe7oTDm AlMclEmiFEqiCHP8VjK lDGm8yIYcObRmlOj4XX ScGGG1PJi8PUb3iRI6F FDvgTc5BmKfPYD6Xrkr YBb3mCu0FPRyaZg5VdG bDRA4IXLpHOBieZginL 8jJpXxCZhhODUjPs5mO MIiDBCwg1raWOEvQ6c1 PRSuj3OhohztccKigWa hYyBjcmVzdCwgYmlvcH R8KZQqzB07YGIhT8Dwj 24sIGFzcGlyYXRlIHNt RKGmuxBsheRtxV12R9g cgG5jlflvbDgffZVfVB TxyblyiPjiGHmglT15Z gVzMCAMON7EVXCBUERN N9iWLFVLIDYDIPUYIAU DIEsNNI2KL2UERWVSIH M7BZFeE2EqQTsRDZ0WY lJPVyBDRUxMVUxBUklU FGTvA8qZOHBCSYCbCHT NRA3UHn1SPUKNZjPYNl OPA7PZWPCUR7LMXSwtj XAyCP8iE2MrkIRiIBLb Qw7xKNAaPFRrx0ler6j 4dVC0xtuvyU3kCYhzTM 6kbTLluF7vNUjuaER9i 3BvaWVzaXNccGFyICBc cGFyfQ== Comment (test code = 9835) k2ivdDQsQJJadKH9TgN zKLAds6xdf2MypRWizS XiBLwtlLIeslEgdd03s RM0uN94CW4rKDDxEfO5 UTYbefJ4Ipy3LTUlCQK cpDQfI004h2lhj7uxvs BmpBC4pVkrZAPeQCRoI WluXGZzMjBccGFyIFBl wcL3sUZdO5mqavkdDSk zrj50MCQrURKmUESlHZ NfPW34FBvxodMfgQY0l 2D5HH3pCZCiGSGzHAGs GWjeLB8fq9DjMJRzJMK kwzO8NSFsWYagv8DiQR OcnxOdGY2bFFW0WLQsD RAcphHwF1AaeE3xiLW2 gE0tCId2YLC5B6dgroB cIsEYNyBhWNB6TFFoHA 00lPEjAUJjlR2gdPz3h YFma11fGLjaDELeNSTv vqAtDHZaRS3TRFWUOWO fwcDjgnDdbTL7oS2rEP 1pDRT4zM0ya7ddsTSou 1IgjJLuLLfpVZDcWF6e cGxhbnQuIFxwYXIgVGh zUOFmbxWhlTFenv86LY Ysz9arnUzejO4djKEcB XNpZHVhbCBwbGFzbWEg F4EnbIQnBC3tgTKusT0 qP25bekSyUJNno10aj1 l0jQMshM29GFZ8mP8tX AOmzOMtBN0nLAU3nH5u DR8evXcmPPC3hBWeZMN ciAUhfiMjl52eSY1aQU TaPk0zFKRkzGUxASAnP CP6IAa2FQKty70yYTSs clxwYXIgRHIuIFRhcml sYX60jrmgRrFbGDwpik FphHVcDTHzgmake5YiE CWuxOAjM3OpSLUugnEd T33hJ3VamgM5jQUfHOW oZSBpbnRlcnByZXRhdG vkzv7brOLmDTZhua0= Microscopic Description h2bljDNiZAItsWN2GzG (test code = 9865) tCYVxv1bpq6QsnFEioD OvZIhtaPChmdWudz66o SG5jK77XZ3kVYCcUbQ3 JUZoouI2Lbo8DUXwDOM ofQHqF488y6pyl2glnw BsdXK9GWSqKXIzC3PxH W1qMMPqbGTjSTM7GSJc WXLbX0jddqXqomJhY9c jbGRgHLV7O90gaYHdUK lfvQQ7OOZjLhhrRCy9F QhvcW2pOSedFOF7ORr1 MFxwbGFpblxiXGZzMjB uF5EpTVHwkhvoKjHbBg 4BHGPPMLBPW3jiFblXQ FNZXHBhclxiMFxjZjBc cGFyXHBhcmRcbGkxOTg aWYEmZLJ3YZKbvFgfTN o9VAw8cXR9XNKncIwvN SUqVSI9MNbxbAl3NBFk YiBTdWJvcHRpbWFsIGZ fRAlhTU69EAHlLQ8zLG E7YyPvsqHmT6PcHIDqa 3CdqOozCPBmU0VowVAs BLRrwMe6GRRqZrKbIP5 9BZWrkWYwLR5dA5HsRV K3x6N9lGFuPon4JNNkP KKfyATfyPVpbG1qssOu YmVyIHdpdGggdmFyaWF ibGUgbnVjbGVhciBsb2 BauYnpdijtCKJeAM8gj Yx3rhT2UTduoYJxWC6s dCBpZGVudGlmaWVkXHB hclxwYXJcYlxjZjIgQk 0UJYENYVFVB9otZ1iLM FsfJVJlZfRfM9RkSHEs tbOZyHXcfSW9Hmx9DYG sX2Ndp2T2tK8dwFzwy4 1hbGwgcGFydGljbGVzI HByZXNlbnQgXHBhciBG lA3arF7kdqTsydDcq2m luScjgmP4hpU9aU7kVD HapgI5sNSkP40bZTZdg I7gr4vosBPsGVFgtkej UDYjFqPZD17IYI7PTxR FIkGFKMCCZfEyYK3CG2 saAH1TIwrKIUsmGAFoJ uGcP0KvVEEoepCNcJCw qFH9Tqa7DNRdW5Ubc0D 3gN5tlLLqhUJueHW7QM jpnQvfycFwGALjKDB8c HIxDOJdhxGeTX18MnX7 i3McqVRzyDRbuE53INx vTJVrNUE2ZJOtOPIhcc IIulYsnLihD7l9NKK1T ANcEnYAlw3crvZho0v7 PTRqTNU8xlA9mW7nWQi kBIIaKRI9wBgji5W9rR XjXpj3IJZpOOZoW8Pml 1HohpSmuGQ7iEBaoEsp blxwYXIgTWVnYWthcnl tM9u7HSK2HEGcIrAAxa PySO48HJmtcSqjhnXzr WFibGUgbnVjbGVhciBs r3TlwIrfpxnqWNXmPTr kaLzrL2v7CLO9JGImZp OPj6OnwW8wjaFmh7DkK RFfbgXEzQLmeZXoL1Rb lVQ2IQJdHfBWw5IwpL4 gksApf9KmHHArviNLu5 7bP5q9SJL6CFJoXmSQh 5ErnM6tajKlk1TlBXZq mhLVxKCgnPK2CYLySrO Em2KxqM0rocKsj8OwFJ BhclxwYXJ9 Stains on Biopsy (test o3kifKMdALHfkHQ3CtC code = 9916) vTNMjh2gig4OsaKRhcU EyEWmboEGvuyXexg44t UF5qU44UY7aAJMfXwS2 STIdygR5Upt1OMPhXGU naXFhN148a5dyr4zirp VuzWY8pWbmZGQxKQWjF WluXGZzMjBccGFyIENE JTF0DClwQ7cicQaiyEV mj9PqdEUstwBoBEHgBC BzbWFsbCBjbHVzdGVyc kKbGvHaaVOvkFHwU9Qa xJKuXLx1PVKqYlH0vFN roTHefp54XQVgjOl3lP RuaPZ1ANLylwIGTFKhU SBhbmQgbGFtYmRhIGlt tKMag3W8KWiollAdzC9 3XLpbxNYjVHkgZ0p5DH BxLIizVHIkk5WfdIG3a B9jOFHqrgxnJJO9 Stains on Clot (test code c0wteRXtDQWfnCS6IgD = 00912) lHKUlo2fvi1TyhNLhhL GbGMyqcUKmqfMect97f PP3oS16GH3fDDQkUbB3 FFXeioS0Too7TMRgTVO vbZTgT142a3toq8rbcj ImcAI7zIbeMYQiPQNoP WluXGZzMjBccGFyIENE TLF3CWqkgOFbj3O1KVr pCQtwQ8rflRpzpELeq0 NhdHRlcmVkIHBsYXNtY ARvRYwkovbiCTYqQN7l OXJvQIQqWWMgt6kfU8G sbHVsYXJpdHlccGFyfQ == Gross Description (test k6eevZTmRMMwnBH0ZiH code = 2489152267) zYZVdq7cox2BpuVNkgW UzYBvchWDhutYpgr05e NX6tV26QV1bWZGrKnP1 JBQbqwO3For8UTQaBES myCScS009r7urt2alnb ValXL9cNitUZMjv4drL HTshOWyCNH9HFaxhPZl PJUtRJQtMYj4GMHtCDs xrEPdSN7vuTijHlsseY ryo7PuyJXvDHoqWAAaI JNwSQqeFEGzA5UMFYOx VdY3XrTsJCIgOGh1AWw kU5KOTCYxBIL0YkT2JR Y8ZmB6YCg0EZUKBg8tO bN2RHHiXsM8QII6Fhyk IFxcdCAyIFxcZmwgXFx mIEFyaWFsIFxcZnMgMT FnPKfzWaGhAE8iuHctv GFpblxiXGZzMjAgQjpc cGFyXGYwIElsaWFjIGN uZTZ6JWCnsNlaoZNhv6 V5VJJqt3TaMNSii4Eek OZiBFNaUXAodYYxb1xh rcB6BHBwOuT0OFZyHjO 7LXAfQGCjgDenLTAdQ9 ByU4mgZN8qpSXqOK99m EEnuMjkw8AlzVr9sBAp PQtaOXRrPEhtdv91XLW 5i5apdTAlJTjuDfdyuX FoonH3VReLMHTGIBdPK pPvOI8lVJcWIthZHMkF TnwyMTAxNnwxfFVTRVJ 0OZlzxChbyOr8w9evmL Koo0y8MKkpEAZ9lHLDy 1xmaWVsZHtcKlxmbGRp fcS7POhECMMJYHwMSiM yYF3iZRiCSmlFFxE9Nf JmRGQ6DOaWT6DLcOQ8W aw1ZSx1cDnwJewgrsLp vQSaMgUlsM2rwBmqaT1 bGvHzRChkKWNjB0NdH7 RlbmRccGFyXHBhcmRcc 8doJTN1AABtsVQbzYOg NlMfKqxzEDP4i2jmEQN fyVEiQTI1NRbrsIEzJA EwMDIgXFxkYiBPVlIgI tPQEXT1YNB1FaB4XZa8 VHRVHdEkIfRxRID5KbF kMNpyJEr7WCo4PTdKKa Y6MbGyKHR8RNkoZZG1E OCwJCc4PUAlYOogvLQz XGYgQXJpYWwgXFxmcyA xBCReFZCbEYozelU3LK JcZjAgQzpccGFyXGYwI UiqpQIuYOEaZPC3MYUe mBvxoEDir0Y0RZYss6G nRPUdl7EvqJoyNSEoUd WcQJMbO5OsTnKsKfglB V6rYZRqKZIfxuAZlFZq oAD7QLGaaJ6iFTTjqP9 ndGFhP6Ske2N9fXMoQc 4fGQBjW1EmM0kqvCBnj Plxwt0cXZFua3OzM7G0 ANQxTYnol8hiTBZlLJm uq4XzNAjZXPTGDQ7YHX 5grQZ5RPtSV8XVO9dRc JOqHYN0tOH5ESXYZlkh jUI7xFG1hU95ESSuGBR tePThVUsrD078SJ39BW GhLAtvw0rqDDBjTJdvb 6UdNIxBHVAGHY3UGL1h fZU2EZkPL4LKLUrjQEJ rCpllvWKBHBL9ZTxupJ eunMs1j6ynqJNfw5x6D KdaCXA7hSoqeMPwbzzr nwWhs0wxlSgki7GpnCP kZC50CXGqiKOtADD4LJ 5wjXbbZPA6 Disclaimer (test code = m7fxoCJwLTSpwWFrLpM 9844) qKSFaHAVxj7saSBVagK FuZzEwMzNcZnRuYmpcd ISuQUPlCcLud6sna657 oCPgi4cmTSQjRrW5gAK mLVYhdMVxB266XQHiBQ snh5ucv6VkLSPkyJSga 2Z9YWSAtgslbAv5oQym T82nn4A5JshqU8znYAX pGHLfF5VsMR6oKYXeQh r5NXK3QDS3QGHmABDuK 2GsTF4yYJJgkIXcWEl8 s6pliPrnGPPeWSH8v7r bSXyxrwCwQM9iwm2zvG i7j9jilbCbECQpJWRbj EXAODGnT4XdiOntCt9l jFi8tDqhOznwGBP4Oyk 7WA5mlq82qwm0wQbfNX VyveivWkE0IQcfIJYju cqwYMo4NDwfTMDmbFB4 GDZfhKBhS9TcRVIfOA5 cdfw2VRU5TFmrWCLfJk X4RHKhdRUwPTLemKxiF Efmj891YBZ6RcYqFF0e L1Vkl3O9hZ4kaMUzRCA gbVXmBzLeDUBkfa1bnM YqNXlbx9QyQNJ8dpK4b SPunPObUYBmQL19Qemj e6GzAapxSUE6TZUmurR pu1Oip7haJyTkcvWjW9 esI5AvDGJqZKZfHJNwU dIfijTen0Qwx5UbzVCn lEc6x8eqPFNyXLEpeTe hh8lvBKI4AJFbE4V4rH Rzw1iqGNfeZMOukZY4v oO4GTWpuIHzL2LfvD9s AZUvHP5uvpq8e0ehOUL 7RIazDPGdHuM0pzZ0VJ BcaGVhZGVyeTcyMFxmb 473AVQ6FgXlEZMwd9Ah I3KqsKrbR37ocVyzO92 vWHUclCbldQ2zxJsohB 5cZjBcZnMyNFxxbFxwb ZXrojcsVMkghzW4GPty mzphPKFaMJdpX3clOzI nOMLtgVamUIqqf0UbAQ YdMPNeLgaejlN3XTOKk 91sGFVgv4AiNMPfwS3o gITxBWvqkbSnmJV4LIh hdmUgYmVlbiBkZXZlbG 4nYJLbUC4yQBJcraLgu m9chhQeSAUuDUWgN0Py cmlzdGljcyBkZXRlcm1 glwSpVJQ0GZRATD9QSJ VbARDnk34lOEAviBohi B6ngSNvxmGeTYLgp9Yn gC6tzMLZUXQkE1ggIY0 lJDulm0YtfCLmpYWkxR Z2HUOqf1DcUkKevyVjc BAuuBSxH9XwzKkxR8dp VFOyTCKxdaHqmVQxm1T rRKKdoOD4vSSvXR4MLg WAh41xVPMkYOVKjsXgL DNndPfzoAU3ckT0hI0f LiBJZiBhcHBsaWNhYmx bGRLyc843xk0airK3NC AbSIPupvfnc2QdJXKfU HMrcX47LJLtNQPtej1y hnausZGtupIdM7Kihna 7jP4tPAXqSEemMKEaKO ZzMjJcbGFuZzEwMzNca GljaFxmMVxkYmNoXGYx FDhtO9ixWhZyGsUzBau wYXJ9 HartleyHematopathology Bone Marrow [id number] 21:55:00 Test Item Value Reference Range Interpretation Comments Method (test code = Touch Prep 9909) Adequacy (test code = Satisfactory for 9910) evaluation Total cells counted 300 (test code = 9867) BM Blast % (test code = 1 % 0-5 58543) BM Myelocyte % (test 7 % 5-20 code = 83832) BM Metamyelocyte % 11 % 13-32 L (test code = 55938) BM Granulocyte % (test 27 % 7-30 code = 04710) BM Eosinophil % (test 2 % 0-4 code = 85172) BM Lymphocyte % (test 17 % 3-17 code = 45070) BM Plasma Cell % (test 2 % 0-2 code = 02650) BM Monocyte % (test 3 % 0-5 code = 77687) BM Normoblast % (test 30 % 7-32 code = 39736) BM M:E Ratio (test code 1.7 3.0-4.0 L = 9888) ALLYSON (test code = ALLYSON) DISCLAIMER Preliminary BM Diff may have been completed by a director medical surgical and is subject to change. Any pathologist updates will be included on interpretation and appear in the final result. Please use caution in evaluating your patient based on preliminary results. Lab Interpretation Abnormal (test code = 19936-9) [facility] -Bone [id number] 16:41:23 Test Item Value Reference Range Interpretation Comments Flow Cytometry Yes Test performe d (Received) (test by:[facility] ersity code = 8319) of [facility] Cyt[facility] [id number] [place] [id number] Jess Ap Link [id number] (test code = 90744) ALLYSON (test code = Premedication ALLYSON) type:->NoneAspiratio n laterality:->Unilate ralBiopsy laterality:->Unilate ralProcedure type:->AspirateProce dure type:->BiopsySelect the Bone Marrow Stains:->Congo RedSelect the Bone Marrow Stains:->IHC [id number] the Bone Marrow Stains:->Iron [facility] Spec[facility] -Bone [id number] 22:18:42 Test Item Value Reference Range Interpretation Comments Jess Ap Link (test [id number] code = 23435) Cytogenetics Yes (Received) (test code = 8304) ALLYSON (test code = ALLYSON) Premedication type:->NoneAspiration laterality:->Unilateral Biopsy laterality:->Unilateral Procedure type:->AspirateProcedur e type:->BiopsySelect the Bone Marrow Stains:->Congo RedSelect the Bone Marrow Stains:->IHC [id number] the Bone Marrow Stains:->Iron MD EastonBone marrow aspiration w/ [id number] 20:00:00Carina Hickey NP 10/29/2020 3:14 PM Procedure: Bone marrow aspiration/biopsy Date/Time: 021 2:49 PM Provider Information:Performed by: Carina Hickey, NPAuthorized by: SHALOM Dickinson Heading Machine Operator present: yesAssistant: Cleo Gallegos crematory operator used?: crematory operator not needed Patient Diagnosis:Pre- procedure diagnosis: MMPost-procedure diagnosis: unchanged Indication:Indica tion: evaluation of disease status Anesthesia:Anesthesia: local infiltration and see MAR for detailsPatient anesthetized by: advanced practice providerLocal anesthetic: lidocaine 1% without epinephrineAnesthetic total (ml): 10 Sedation:Patient sedated?: patient not sedated Aspirate Site(s):Laterality: rightSite location: posterior iliac crestInstrument(s) used: Jelani needleInstruments placed by: advanced practice provider Biopsy Site(s):Laterality: rightSite location: posterior iliac crestInstrument(s) used: Bing needleInstruments placed by: advanced practice provider Dressing:Dressing: gel foam Post-Procedure Patient Assessment:Patient tolerance: fairNotes for future procedures: recommend IV/PO sedation for future procedures Estimated blood loss: minimal Discharge/Disposition:Discharge instructions: verbalPatient discharged to: discharge to homeDisposition mode: ambulatory Sample Disposition:Testing performed: flow cytometry, cytogenetics and pathologyStains performed: IHC, iron, congo red and CD-[id number] samples(s): noAspirate volume obtained (mL) - right: 8Visual assessment for specimen adequacy - right: particlesVisual assessment for specimen adequacy - right: 1Specimen integrity - right: fragmented Comments: I, Carina Hickey, performed the procedure. The patient was identified by name, date of ,and medical record number. Platelets were adequate for the procedure. Patient tolerated procedure well. Pressure was applied for 3 minutes and hemostasis was achieved post procedure. Compression bandage and gel foam applied. Pt verbalized understanding to keep dressing on for 48 hours.MD EastonProtein Electrophoresis Path [id number] 22:35:01 Test Item Value Reference Range Interpretation Comments SPE Path The serum protein Interp (test electrophoretic code = 7285) pattern shows a SAMIR Hadley protein peak in the MD BETINA , PhD gamma region which is [address]57V ictated by: confirmed to be CHECO MOFFETT MD, PhD positive for an IgG [id number] tated kappa M-protein by Date/Time : 10.28.2020 immunofixation 16:34 PM SHIPPING TECHNICIAN studies. 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 Comment: ___ CHECO MOFFETT MD, PhD [id number] by: CHECO MOFFETT MD, PhD [id number] Date/Time: 10.28.2020 16:34 PM SHIPPING TECHNICIAN Transcribed Date/Time: 10.28.2020 16:34 PM CSTElectronically Signed By: [place] [id number] on 10.28.2020 16:34 PM [facility] HIV 1/2 Ag&Ab Path [id number] 17:36:37 Test Item Value Reference Range Interpretation Comments HIV 1/2 Ag&Ab Negative for Interp (test HIV-1 antigen and code = 9394) HIV-1/HIV-2 ____ADRIANA MAR IA antibodies. No ROSSANA NEAL MD laboratory - [id number] by: evidence of HIV ERNESTO KAMLESH A infection. If ROSSANA NEAL MD acute HIV - 90948Vjdzjwxh infection is Date/Time: suspected, 11:36 AM SHIPPING TECHNICIAN consider testing Transcribed Date/Time: for HIV-1 RNA. 10.25.2020 11 :36 AM CSTElectronical ly Signed By: ERNESTO GOULD MD - [id number] on 11:36 AM MD [place]-1/2 Antigen and Antibodies, Fourth [id number] 02:55:58 Test Item Value Reference Range Interpretation Comments HIV 1/2 Ag & Ab, Non Reactive Non Reactive Performed a t: 4th Gen (test code [facility] = 9280) [id number] [place], [place] [address] MD [place]onConfirm [id number] 20:45:44 Test Item Value Reference Range Interpretation Comments ABORh Confirm. (test code = 882-1) O POS MD [place]onFolate [id number] 19:52:28 Test Item Value Reference Range Interpretation Comments Folate Lvl 17.5 ng/mL 4.8-24.2 Hemolyzed speci mens (test code = with Hemolysis Index 5625) >30.0 (30 mg/dL or visible hemolys is) may cause interference an d give falsely high re sults. ALLYSON (test code This lab cannot be = ALLYSON) scheduled at the following locations due to collection/procces sing restrictions:[facility] DIAG LAB [facility] DIAG LAB [facility] DIAG LAB [facility] MD EastonVitamin B12 [id number] 19:16:46 Test Item Value Reference Range Interpretation Comments Vitamin B12 Lvl (test code = 8017) 468 pg/mL 211-946 MD EastonTransferrin with [id number] 19:08:16 Test Item Value Reference Range Interpretation Comments Transferrin (test code 249 mg/dL 200-360 = 7653) TIBC (test code = 349 See_Comment [Automate d message] 1366) The system [employer] generated this result transmitted ref erence range: 250 - 45 0 mcg/dL. The ref erence range was not u sed to interpret this result as normal/abnor mal. Eveline [id number] 19:07:23 Test Item Value Reference Range Interpretation Comments Iron (test code = 6066) 164 See_Comment H [Au tomated message] The system [employer] generated this result transmitted ref erence range: 59 - 158 mcg/dL. The ref erence range was not u sed to interpret this result as normal/abnor mal. Lab Interpretation (test Abnormal code = 03214-3) MD [place]onMD COVID-19 (ERWIN-CoV-2) PCR [id number] 12:50:25 Test Item Value Reference Interpretation Comments Range COVID19 SARS New Patient Indication (test code = 64414) COVID19 SARS Result Not Detected Not Detected (test code = 53142-4) COVID19 SARS SARS-CoV-2 NOT Detected. Interpretation (test Reference Range: Not code = 49011) Detected Methodology: The [employer] RealTime SARS-CoV-2 assay is a qualitative real-time reverse academic services professional polymerase chain reaction (greeter-PCR) test to detect RNA from SARS-CoV-2 in nasal, nasopharyngeal and oropharyngeal swabs from patients with signs and symptoms of infection who are suspected of COVID-19 by their health care provider. The [employer]vin RealTime SARS-CoV-2 performed on the [employer] System is a dual target assay with primers and probes for the RdRp and N genes. Results must be interpreted within the context of all relevant clinical and laboratory findings, and epidemiological risk factors. Positive results are indicative of the presence of SARS-CoV-2 RNA; clinical correlation with patient history and other diagnostic information is necessary to determine patient infection status. Positive results do not rule out bacterial infection or co-infection with other viruses. Negative results do not preclude SARS-CoV-2 infection and should not be used as the sole basis for patient management decisions. The [employer] RealTime SARS-CoV-2 assay is for in vitro diagnostic use under FDA Emergency Use Authorization only. Testing is limited to laboratories certified under the Clinical Laboratory Improvement Amendments of 1988 (CLIA), 42U.S.C. 263a, to perform high complexity tests. The Test was performed by the CLIA-certified, high-complexity Molecular Diagnostics Laboratory (MDL) at [facility] under the Food and Drug Administration (FDA) s Emergency Use Authorization. Factsheet for patients: https://www.[facility].org/ AbbottFactSheetPatientsFact sheet for healthcare providers: https://www.[facility].org/ AbbottFactSheetHCP Test performed by:[facility] Molecular Diagnostic [id number] [place] [address] MD EastonPmeswjyoCEFYRRDQGC7223-52-07 15:05:0098.2[facility] VwkrmsuTEXBJGXKYI9157-72-28 15:05:00 Test Item Value Reference Range Interpretation Comments MCH (test code = MCH) 34.9 pg 27.0-31.0 [facility] [id number] 15:05:0035.5[facility]ann[facility]OLOGY 2019-08-18 15:05:0012.5[facility] VixdlikDXAJEOEMZN2975-59-10 15:05:75629Iiyaumqb SsszymoADFOWSXZOV1949-66-12 15:05:007.7[facility] ZldnxnmOFUUNXTHKO5702-68-31 15:05:003.1[facility] IsqsbqnNPQWHKGYPK1199-34-17 15:05:004.1[facility] [place] [id number] 15:05:000.5[facility] OpfhpaiWHHETUYPMI6913-15-75 15:05:000.2 [facility] SjzpdrlZUOJCMARHH7177-14-90 15:05:0039.0[facility]annHEMATOLOGY 2019-08-18 15:05:000.0[facility] MnizlqyMYGWOZTXYS1861-25-38 15:05:0047.0[facility] VvtmvolPNTKOFXAXF8028-37-29 15:05:006.0[facility] VnpiejmJSVOWUYCLQ9205-69-92 15:05:003.0[facility] RefzkktZCNZSJRYLR7563-03-45 15:05:005.0[facility] [id number] 15:05:002.0[facility] CqalkjzOYOPFYFOJH0319-21-07 15:05:007.9 [facility] IrtniffDVVPIQIDJZ0275-14-35 15:05:003.74[facility] HermannHEMATOLOGY 2019-08-18 15:05:0013.1[facility] BrqtbsqDPQEXILYNR8365-71-75 15:05:0036.7Meluann Pierson
[2021-02-24 22:13] LABS: Absolute Lymphocytes (CBC) 0.4 K/uL (0.7-4.9); Basophils % 0.2 % (0-1.3); Hematocrit 31.3 % (39.6-49.0); Lymphocytes % 4.4 % (15.3-44.8); MPV 8.4 fL (7.6-11.3); RBC Red Blood Cell Count 2.83 M/uL (4.33-5.43)
[2021-02-24 22:25] LABS: ALT/SGPT 48 U/L (12-78); AST/SGOT 29 U/L (15-37); Albumin 2.8 g/dL (3.4-5.0); Alkaline Phosphatase 124 U/L (45-117); BUN Blood Urea Nitrogen 12 mg/dL (7-18); Bicarbonate 26 mmol/L (21-32); Bilirubin Total 1.1 mg/dL (0.2-1.0); Glucose Level 114 mg/dL (74-106); Potassium 3.7 mmol/L (3.5-5.1); Protein, Total 6.1 g/dL (6.4-8.2); Sodium Level 141 mmol/L (136-145)
[2021-02-24 22:40] LABS: Protime INR 1.03
[2021-02-24 23:02] LABS: Blood Morphology Comment NOTED (NOT SEEN)
[2021-02-24 23:03] LABS: Anisocytosis 1+; Macrocytosis 1+; Platelet Estimate ADEQ
--- NOTE | 2021-02-24 23:32 | EDPHYS ---
Physician Documentation [facility] Name: Richie Barlow Age: 50 yrs Sex: Male : 1970 Arrival Date: 02/24/2021 Time: 17:13 Bed 24 Private MD: Giovanni Bains V ED Physician Ochoa Shahid HPI: 02/24 18:45 This 50 yrs old Male presents to ER via Wheelchair with complaints of ma2 Abnormal ultrasound, Blood clot. 18:45 I received a phone call from [place] physician dr. Bashir Biswas cell phone ma2 . He state he is sending this patient with DVT of common fem diagnosed on US today. Patient has multiple myeloma s/p BMT and has been having LE swelling and pain. Patient has a baseline platelet around 500. Dr. Biswas recommended CBC, CMP Coags and if patient is stable and labs non critical (with platelet around baseline of 500), patient can be discharged on Apixaban or Lovenox 1 mg/kg.. Historical: - Allergies: 18:09 Bactrim; em - PSHx: 18:09 None; em - Immunization history:: Adult Immunizations not up to date. - Social history:: Smoking status: Patient denies any tobacco usage or history of. - : The history from the nurse's notes was reviewed. ROS: 20:59 Constitutional: Negative for fever, chills, and weight loss, Respiratory: Negative for pm1 shortness of breath, cough, wheezing, and pleuritic chest pain, Abdomen/GI: Negative for abdominal pain, nausea, vomiting, diarrhea, and constipation, Back: Negative for injury and pain, MS/Extremity: Negative for injury and deformity, Skin: Negative for injury, rash, and discoloration. 20:59 Neuro: Negative for headache, weakness, numbness, tingling, and seizure. 20:59 Cardiovascular: Positive for Swelling to left lower extremity, Negative for chest pain, palpitations. Exam: 20:59 Constitutional: This is a well developed, well nourished patient who is awake, alert, pm1 and in no acute distress. Head/Face: Normocephalic, atraumatic. 20:59 Back: No spinal tenderness. No costovertebral tenderness. Full range of motion. 20:59 Skin: Warm, dry with normal turgor. Normal color with no rashes, no lesions, and no evidence of cellulitis. 20:59 Cardiovascular: Rate: normal, Rhythm: regular, Pulses: no pulse deficits are appreciated. 20:59 Respiratory: the patient does not display signs of respiratory distress, Respirations: normal, Breath sounds: are clear throughout. 20:59 Abdomen/GI: Inspection: abdomen appears normal, Palpation: abdomen is soft and non-tender, in all quadrants. 20:59 Musculoskeletal/extremity: DVT Exam: no pain, no tenderness, no erythema, no increased warmth, swelling, of the left leg. 20:59 Neuro: Exam negative for acute changes, Orientation: is normal, Mentation: is normal, Motor: is normal, moves all fours. Vital Signs: 18:06 BP 157 / 88; Pulse 75; Resp 20; Temp 98.0(O); Pulse Ox 99% on R/A; Weight 104.33 kg; em Height 6 ft. 0 in. (182.88 cm); Pain 0/10; 22:29 BP 152 / 88; Pulse 86; Resp 16; Pulse Ox 100% on R/A; zb 23:28 Weight 105.78 kg; zb 23:29 BP 152 / 84; Pulse 74; Resp 16; Pulse Ox 98% on R/A; Weight 105.78 kg; zb 23:29 Body Mass Index 31.63 (105.78 kg, 182.88 cm) zb MDM: 20:35 Patient medically screened. pm1 22:48 Physician consultation: Bashir Biswas was called at 22:48, was contacted at 22:48, pm1 regarding patient's condition, and will see patient on Wednesday for teleconference and next week in the office. Would like us to start prescription for lovenox 1 mg/kg and then he will convert him to apixaban . 23:31 Data reviewed: vital signs. Data interpreted: Pulse oximetry: on room air is 98 %. pm1 Interpretation: normal. Counseling: I had a detailed discussion with the patient and/or guardian regarding: the historical points, exam findings, and any diagnostic results supporting the discharge/admit diagnosis, lab results, the need for outpatient follow up, to return to the emergency department if symptoms worsen or persist or if there are any questions or concerns that arise at home. 02/24 18:52 Order name: CBC with Diff; Complete Time: 23:20 [facility] 02/24 18:52 Order name: CMP; Complete Time: 22:37 [facility] 02/24 18:52 Order name: Ptt, Activated; Complete Time: 23:20 ia2 02/24 18:52 Order name: Protime (+inr); Complete Time: 23:20 ia2 02/24 22:18 Order name: Manual Differential; Complete Time: 23:20 EDMS Administered Medications: 23:28 Drug: Lovenox (enoxaparin) 1 mg/kg Route: Sub-Q; Site: right lower abdomen; zb 23:30 Follow up: Response: Medication administered at discharge. zb Disposition: 02/25 19:01 Co-signature as Attending Physician, Ochoa Shahid MD. rn Disposition: 02/24/21 23:32 Discharged to Home. Impression: Acute embolism and thrombosis of other specified deep vein of left lower extremity. - Condition is Stable. - Discharge Instructions: Deep Vein Thrombosis, Fibrinolytic Therapy, How and Where to Give Subcutaneous Fondaparinux Injections. - Prescriptions for Lovenox 100 mg/mL Subcutaneous Syringe - inject 100 milligram by SUBCUTANEOUS route every 12 hours for 10 days Dispense 20 100mg prefilled syringes; 20 Syringe. - Medication Reconciliation Form, Thank You Letter, Antibiotic Education, Prescription Opioid Use form. - Follow up: Emergency Department; When: As needed; Reason: Worsening of condition. Follow up: Private Physician; When: 2 - 3 days; Reason: Recheck today's complaints, Continuance of care, Re-evaluation by your physician. - Problem is new. - Symptoms have improved. Signatures: Dispatcher [employer] Delfino Pedroza RN Ochoa Hooper MD MD rn Marinas, Patrick, SONAR TECHNICIAN SONAR TECHNICIAN pm1 George Diaz MD MD ma2 Kylie Figueroa RN RN linhb Corrections: (The following items were deleted from the chart) 02/24 23:44 23:32 02/24/2021 23:32 Discharged to Home. Impression: Acute embolism and thrombosis of zb other specified deep vein of left lower extremity. Condition is Stable. Forms are Medication Reconciliation Form, Thank You Letter, Antibiotic Education, Prescription Opioid Use. Follow up: Emergency Department; When: As needed; Reason: Worsening of condition. Follow up: Private Physician; When: 2 - 3 days; Reason: Recheck today's complaints, Continuance of care, Re-evaluation by your physician. Problem is new. Symptoms have improved. pm1 02/25 01:14 05 18:45 The history from the nurse's notes was reviewed. pm1 pm1
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
[2021-02-24] MEDS ORDERED: ENOXAPARIN 100 MG/ML SYR SQ ONE (23:33)
[2021-02-25 00:45] VITALS: TEMP 98
[2021-02-25 00:47] VITALS: BP 152/84; O2SAT 98
== END 2021-02-24 23:44 | disposition home or self-care (01) ==
LOC: ER 17:10
DX: I82.492 Acute embolism and thrombosis of other specified deep vein of left lower extremity (principal); C90.00 Multiple myeloma not having achieved remission; Z88.1 Allergy status to other antibiotic agents
CPT/HCPCS: 85025; 36415; 85610; 85730; 80053; J1650; 96372; 99284